=== PATIENT | female | born 1965 | race Hispanic/Latino ===

== ENCOUNTER 2025-03-18 22:04 | Inpatient (IN) | payer SELFPAY ==
[~2025-03-18] VITALS: Ht 167.6 cm; Wt 57.4 kg
[2025-03-18 22:34] LABS: BASOPHILS # (AUTO) 0.06 K/uL (0.00-0.20); BASOPHILS % (AUTO) 0.5 % (0.0-5.0); EOSINOPHILS # (AUTO) 0.08 K/uL (0.00-0.70); EOSINOPHILS % (AUTO) 0.7 % (0.0-8.0); HEMATOCRIT 29.8 % (36-48); IMMATURE GRANULOCYTE ABSOLUTE 0.11 K/uL (0-1); LYMPHOCYTES # (AUTO) 1.6 K/uL (1.0-4.8); LYMPHOCYTES % (AUTO) 14.1 % (21.0-51.0); MEAN CORPUSCULAR HEMOGLOBIN 29.5 pg (27.0-33.0); MEAN CORPUSCULAR HGB CONC 30.5 g/dL (32.0-36.0); MEAN CORPUSCULAR VOLUME 96.8 fL (79-99); MONOCYTES # (AUTO) 1.1 K/uL (0.1-1.0); MONOCYTES % (AUTO) 9.6 % (3.0-13.0); NEUTROPHILS # (AUTO) 8.5 K/uL (1.8-7.7); NEUTROPHILS % (AUTO) 74.1 % (40.0-77.0); PLATELET COUNT (AUTO) 199 K/uL (130-400); RED BLOOD CELL COUNT(AUTO) 3.08 MIL/uL (4.00-5.50); WHITE BLOOD COUNT (AUTO) 11.5 K/uL (4.8-10.8)
[2025-03-18 22:51] LABS: CREATININE 4.5 mg/dL (0.5-1.0); POTASSIUM 4.4 mmol/L (3.5-5.1)
--- NOTE | 2025-03-18 22:52 | ERN ---
General Chief Complaint: Weakness Stated Complaint: WEAKNESS X 2 DAYS Time Seen by MD: 22:08 Source: patient History of Present Illness Initial Comments Patient is a 59-year-old female who was discharged from [facility] two days ago after being there for severe fluid overload. She comes here because of buttocks and bilateral lower extremity pain right greater than left and fevers. She came to this hospital because she she felt that [facility] would not admit her as they had just discharged her. It is hard to get a full history from her. She does answer questions, but the details are fuzzy. She is lying in the bed and there are obvious necrotic skin sores up and down the medial portion of her right leg. There is also a necrotic skin sore on a left BKA stump. Both legs have there wound surrounded with erythema and warmth. Her buttocks does not appear to have any wounds. Timing/Duration: unsure Allergies: Coded Allergies: No Known Drug Allergies (Unverified Allergy, Unknown, 03/18/25) Past Medical History Past Medical History: CHF, Diabetes-Type II, Hypertension, Renal Failure Medical History Other: I am assuming peripheral vascular disease from her diabetes. Past Surgical History: Other Surgical History Other: L AKA Constitutional: (+) fever EENTM: (-) eye pain, (-) blurred vision, (-) tearing, (-) double vision, (-) ear pain, (-) ear discharge, (-) nose pain, (-) nose congestion, (-) throat pain, (-) Throat swelling, (-) mouth pain, (-) tooth pain, (-) mouth swelling, (-) other documentation Respiratory: (-) cough, (-) orthopnea, (-) short of breath, (-) stridor, (-) wheezing, (-) other documentation Cardiovascular: (-) chest pain, (-) edema, (-) palpitations, (-) syncope, (-) dyspnea on exertion, (-) other documentation Gastrointestinal/Abdominal: (-) nausea, (-) vomiting, (-) diarrhea, (-) abdominal pain, (-) abdominal distention, (-) constipation, (-) rectal bleeding, (-) dark stool/melena, (-) other documentation Musculoskeletal: (-) Neck pain, (-) back pain, (-) Flank Pain, (-) joint pain, (-) joint swelling, (-) muscle pain, (-) muscle stiffness, (-) gout, (-) other documentation Neuro: (-) altered mental status, (-) headache, (-) syncope, (-) paralysis, (-) numbness, (-) seizure, (-) pre-existing deficit, (-) tremors, (-) weakness, (-) dizziness, (-) slurred speech, (-) vertigo, (-) other documentation Physical Exam General Appearance: (+) mild distress Orientation: (+) alert Eye: bilateral eye normal inspection, bilateral eye PERRL, bilateral eye EOMI Ear, Nose, Throat: (+) hearing grossly normal Neck: (+) normal inspection, (+) full range of motion Respiratory: (+) chest non-tender, (+) lungs clear, (+) well ventilated Heart: (+) regular Vascular Comment Left BKA with a an infected stump. Right lower extremity with necrotic sores medially as if they are remnants of a saphenous vein harvest. There was erythema and warmth and both of these areas. Rectal Comment No obvious signs of bedsores open wounds or infection. Results Laboratory and Microbiology Lab and Micro Result Laboratory Tests Test 03/18/25 22:26 White Blood Count 11.5 K/uL (4.8-10.8) H Red Blood Count 3.08 MIL/uL (4.00-5.50) L Hemoglobin 9.1 g/dL (12.0-16.0) L Hematocrit 29.8 % (36-48) L Mean Corpuscular Volume 96.8 fL (79-99) Mean Corpuscular Hemoglobin 29.5 pg (27.0-33.0) Mean Corpuscular Hemoglobin Concent 30.5 g/dL (32.0-36.0) L Red Cell Distribution Width 19.0 % (11.0-15.5) H Platelet Count 199 K/uL (130-400) Mean Platelet Volume 11.1 fL (7.5-10.5) H Immature Granulocyte % (Auto) 1.0 % (0-1) Neutrophils (%) (Auto) 74.1 % (40.0-77.0) Lymphocytes (%) (Auto) 14.1 % (21.0-51.0) L Monocytes (%) (Auto) 9.6 % (3.0-13.0) Eosinophils (%) (Auto) 0.7 % (0.0-8.0) Basophils (%) (Auto) 0.5 % (0.0-5.0) Neutrophils # (Auto) 8.5 K/uL (1.8-7.7) H Lymphocytes # (Auto) 1.6 K/uL (1.0-4.8) Monocytes # (Auto) 1.1 K/uL (0.1-1.0) H Eosinophils # (Auto) 0.08 K/uL (0.00-0.70) Basophils # (Auto) 0.06 K/uL (0.00-0.20) Absolute Immature Granulocyte (auto 0.11 K/uL (0-1) Nucleated Red Blood Cells 0.0 % (0.0-0.19) Red Blood Cell Morphology ANISO 1+ Sodium Level 137 mmol/L (136-145) Potassium Level 4.4 mmol/L (3.5-5.1) Chloride Level 99 mmol/L (101-111) L Carbon Dioxide Level 30 mmol/L (21-32) Blood Urea Nitrogen 32 mg/dL (7-18) H Creatinine 4.5 mg/dL (0.5-1.0) H Glomerular Filtration Rate Calc 11 mL/min (>90) Random Glucose 99 mg/dL (70-105) Lactic Acid Level 1.2 mmol/L (0.8-2.5) Total Calcium 7.4 mg/dL (8.5-10.1) L Total Creatine Kinase 110 U/L (21-232) Troponin I High Sensitivity 400 ng/L (4-50) *H B-Type Natriuretic Peptide > 5000 pg/mL (0-100) H MDM Because of her fever and tachycardia the patient was made a sepsis alert on arrival to the ED. sepsis orders have already been written it is now 10:52 p.m. I will attempt to get medical records from [facility] but I think the patient will need to be admitted for IV antibiotics. The workup for the patient revealed a troponin of 500 and a BNP of greater than 4000. I called the environmental quality analyst's they would like her admitted with a an echo in the morning as well as arterial and venous Dopplers on her lower extremities. I have called the hospitalist and they are willing to take her onto their service. In the meantime I will start antibiotics. ED Course Orders Procedure Category Date Status Time Iv Insertion CPOE 03/18/25 Transmitted 22:11 Pulse Ox(Continuous) RT 03/18/25 Transmitted 22:11 Vital Signs Per CPOE 03/18/25 Transmitted Routine 22:11 12 Lead Ekg Tracing- EKG 03/18/25 Logged Technical 22:11 Cbc With Differential LAB 03/18/25 Complete 22:11 Blood Cult MARCOS 03/18/25 In Process 22:11 Creatine Kinase, Total LAB 03/18/25 Complete 22:11 Troponin I High LAB 03/18/25 Complete Sensitivity 22:11 Lactic Acid LAB 03/18/25 Complete 22:11 Basic Metabolic Panel LAB 03/18/25 Complete 22:11 Chest 1vw RAD 03/18/25 Logged 22:52 B-Type Natriuretic LAB 03/18/25 Complete Peptide 23:21 Echo 2-D Complete ECHO 03/18/25 Logged 23:54 Us Venous Doppler US 03/18/25 Logged Bilateral 23:54 Us Arterial Bilat Low US 03/18/25 Logged Ext Dupl 23:54 Zosyn 3.375gm+Ns 50ml PHA 03/19/25 Logged (Zosyn 3.375gm+Ns 00:50 Current Medications Medications (Trade) Dose Ordered Sig/Lori Route PRN Reason Start Time Stop Time Status Last Admin Dose Admin Piperacillin Sod/ Tazobactam Sod (Zosyn 3.375gm+NS 50ml) 3.375 gm ONCE STAT IV 03/19/25 00:50 03/19/25 00:51 UNV Vital Signs Date Time Temp Pulse Resp B/P (MAP) Pulse Ox O2 Delivery O2 Flow Rate FiO2 03/19/25 00:50 93 18 134/71 98 Room Air* 0 21 03/18/25 23:35 99.1 93 18 106/69 98 Room Air* 0 21 03/18/25 22:08 101.5 92 17 130/71 98 Room Air 0 DX & DISP Disposition: Inpatient Departure Impression: Primary Impression: Wounds, multiple Additional Impression: CHF (congestive heart failure) Condition: Stable Referrals: SELF,REFERRAL (PCP) LUIS SANDERS MD Mar 18, 2025 22:52
--- NOTE | 2025-03-18 23:51 | NUR ---
PATIENT CLEANED OF STOOL INCONTINENCE.
[2025-03-19] VITALS (18 sets, daily range): BP systolic 95–147; BP diastolic 52–79; PULSE 68–91; RESP 14–20; TEMP 97.4–98.8
--- NOTE | 2025-03-19 01:00 | NUR ---
REPOSITIONED PATIENT TO RIGHT SIDE LYING, PLACED ON SOFT WEDGES TO TURN PATIENT.
--- NOTE | 2025-03-19 01:35 | NUR ---
ULTRASOUND AT BEDSIDE NOT ABLE TO DO VENOUS STUDY DUE TO PATIENT'S PAIN, WILL GIVE PAIN MEDS PER MD AND [facility] WILL ATTEMPT AGAIN.
[2025-03-19] MEDS: FENTanyl CITRate PF 50 MCG/1 ML 2ML VIAL IVP ONE (01:48)
[2025-03-19] MEDS: ZOSYN 3.375GM +NS 50ML IV STA (01:48)
--- NOTE | 2025-03-19 02:01 | NUR ---
PATIENT NOT ABLE TO TOLERATE VENOUS STUDY. [facility]
--- NOTE | 2025-03-19 04:01 | NUR ---
FAMILY TO BRING HOME MEDICATIONS.
--- NOTE | 2025-03-19 04:51 | HP ---
[facility] H[facility]ORY AND PHYSICAL Date of Service: Mar 19, 2025 Time of Service: 04:28 PCP: Self-referral HISTORY OF PRESENT ILLNESS: This is a 59-year-old female not a good historian, with past medical history of CHF, hypertension , severe peripheral vascular disease, diabetes and end-stage renal disease on hemodialysis Saturday who was brought by EMS to the ED for complaints of pain to buttocks and bilateral lower extremities and fever.Patient reports she was recently admitted at [facility] for fluid overload and was discharged 2 days ago .Patient states she has a left AKA that was done 2 weeks ago and looks infected and she also has a multiple wound ulcers with some necrosis to right lower extremity and both extremities are swollen,with erythema and warm to to touch .Patient has no records here for any admissions. Upon arrival to the ED vital signs temperature 101.5, heart rate 92 blood pressure 130/71 saturation 98% on room air Seen and examined patient int he ED awake,alert and coherent and irritable .Patient denies chest pain,palpitation,cough and shortness of breath. Latest vital signs temperature 99.1, heart rate 95, blood pressure 114/60 saturation 98% on room air. Labs: WBC 11 , hemoglobin 9, hematocrit 29 platelet count 199. Chloride 99, BUN 32, creatinine 4.5 GFR 11, calcium 7.4 troponin 400 BNP 5000 chest x-ray, arterial ultrasound and venous Doppler result are still pending at this time. ECG unavailable at this time. While in the ER patient received Zosyn IV and fentanyl 50 mcg IV. We will admit patient for further medical management. REVIEW OF SYSTEMS CONSTITUTIONAL: Denies fevers, chills, or night sweats. No unintentional weight loss reported. NEUROLOGICAL: Denies headache, amaurosis fugax, motor weakness, sensory deficit, vertigo/spinning sensation, gait abnormalities, or tremors. ENT: No hearing loss, otalgia, otorrhea, rhinitis, rhinorrhea, hoarseness, or sore throat. CARDIOVASCULAR: Denies any exertional angina, dyspnea on exertion, orthopnea, paroxysmal nocturnal dyspnea, palpitations, life-threatening arrhythmias, claudication. PULMONARY: Denies any shortness of breath, cough, phlegm/sputum, hemoptysis, pleuritic chest pain. SLEEP: Denies morning headaches, daytime somnolence or napping. Denies difficulty falling asleep, staying asleep, waking from sleep. Denies knowledge of snoring. GASTROINTESTINAL: Denies any type of dysphagia to either liquids or solids. Denies nausea, vomiting, pyrosis, early satiety, abdominal pain, diarrhea, constipation, or changes in stool consistency or caliber. Denies coffee-ground emesis, hematemesis, hematochezia, or melanotic stools. GENITOURINARY: Denies frequency, urgency, nocturia, hematuria or incontinence (Storage/Irritative symptoms.) Low urinary stream, straining to void, urinary intermittency or hesitancy, splitting of the voiding stream, terminal dribbling. ENDOCRINOLOGIC: Denies polyuria, polydipsia, polyphagia or heat/cold intolerances. HEMATOLOGIC: Denies thrombophilia/previous clots, or coagulopathy/bleeding disorders. ONCOLOGIC: Denies personal history of malignancy. DERMATOLOGIC: Denies rashes or pruritus. PSYCHIATRIC: Denies any suicidal or homicidal ideation. Denies hallucinations. PAST MEDICAL HISTORY: [ CHF, hypertension , severe peripheral vascular disease, diabetes and end- stage renal disease on hemodialysis ] PAST SURGICAL HISTORY: [ Left AKA ] PAST SOCIAL HISTORY: [ Patient lives with son. Patient admits to smoking four cigarettes per day. Patient denies alcohol and recreational drug use] FAMILY HISTORY: [Noncontributory ] Coded Allergies: No Known Drug Allergies (Unverified Allergy, Unknown, 03/18/25) PHYSICAL EXAM GENERAL APPEARANCE: The patient is awake, alert, and oriented, in no acute cardiopulmonary distress. NEUROLOGICAL: Cranial nerves II-XII grossly intact. Motor is 5/5 in bilateral upper and lower extremities proximal to distal. No sensory deficits. HEENT: Face is symmetric. Pupils are equal and reactive. Extraocular movements are intact. NECK: Supple. No JVD. No thyromegaly. No submental, submandibular, pre- /postauricular, occipital or supraclavicular lymphadenopathy. CHEST: Normal chest expansion. No Telemetry. LUNGS: Absence of any rales, rhonchi or any wheezing. CARDIOVASCULAR: Regular. S1 and S2 normal. No appreciable rubs, murmurs or gallops. ABDOMEN: Soft, nontender, and nondistended. There is no rebound, voluntary guarding, or rigidity. : Deferred. No Ta. EXTREMITIES: Left AKA with emily intact. Swollen right lower extremity SKIN: Infected left stump and right lower extremity multiple necrotic wound ulcers Vital Sign (Last 24 Hours) 03/18/25 03/19/25 23:35 03:30 Temp 99.1 Pulse 95 Resp 18 B/P (MAP) 114/60 Pulse Ox 98 O2 Delivery Room Air* O2 Flow Rate 0 FiO2 21 LABS: Laboratory: Test 03/18/25 22:26 Range/Units White Blood Count 11.5 H 4.8-10.8 K/uL Red Blood Count 3.08 L 4.00-5.50 MIL/uL Hemoglobin 9.1 L 12.0-16.0 g/dL Hematocrit 29.8 L 36-48 % Mean Corpuscular Volume 96.8 79-99 fL Mean Corpuscular Hemoglobin 29.5 27.0-33.0 pg Mean Corpuscular Hemoglobin Concent 30.5 L 32.0-36.0 g/dL Red Cell Distribution Width 19.0 H 11.0-15.5 % Platelet Count 199 130-400 K/uL Mean Platelet Volume 11.1 H 7.5-10.5 fL Immature Granulocyte % (Auto) 1.0 0-1 % Neutrophils (%) (Auto) 74.1 40.0-77.0 % Lymphocytes (%) (Auto) 14.1 L 21.0-51.0 % Monocytes (%) (Auto) 9.6 3.0-13.0 % Eosinophils (%) (Auto) 0.7 0.0-8.0 % Basophils (%) (Auto) 0.5 0.0-5.0 % Neutrophils # (Auto) 8.5 H 1.8-7.7 K/uL Lymphocytes # (Auto) 1.6 1.0-4.8 K/uL Monocytes # (Auto) 1.1 H 0.1-1.0 K/uL Eosinophils # (Auto) 0.08 0.00-0.70 K/uL Basophils # (Auto) 0.06 0.00-0.20 K/uL Absolute Immature Granulocyte (auto 0.11 0-1 K/uL Nucleated Red Blood Cells 0.0 0.0-0.19 % Red Blood Cell Morphology ANISO 1+ Sodium Level 137 136-145 mmol/L Potassium Level 4.4 3.5-5.1 mmol/L Chloride Level 99 L 101-111 mmol/L Carbon Dioxide Level 30 21-32 mmol/L Blood Urea Nitrogen 32 H 7-18 mg/dL Creatinine 4.5 H 0.5-1.0 mg/dL Glomerular Filtration Rate Calc 11 >90 mL/min Random Glucose 99 70-105 mg/dL Lactic Acid Level 1.2 0.8-2.5 mmol/L Total Calcium 7.4 L 8.5-10.1 mg/dL Total Creatine Kinase 110 21-232 U/L Troponin I High Sensitivity 400 *H 4-50 ng/L B-Type Natriuretic Peptide > 5000 H 0-100 pg/mL Current Medications Medications (Trade) Dose Ordered Sig/Lori Route PRN Reason Start Time Stop Time Status Last Admin Dose Admin Piperacillin Sod/ Tazobactam Sod (Zosyn 3.375gm+NS 50ml) 3.375 gm ONCE STAT IV 03/19/25 00:50 03/19/25 00:56 DC 03/19/25 01:48 3.375 GM DIAGNOSTICS / RADIOLOGY: [ ] ASSESSMENT: Severe peripheral vascular disease POA Infected left AKA stump POA Multiple necrotic wound ulcers to right lower extremity POA Elevated troponin due to demand ischemia POA Acute CHF POA End-stage renal disease on hemodialysis POA Diabetes POA Acute anemia due to CKD POA Hypertension POA Sepsis without septic shock source infected wounds to bilateral lower extremities POA PLAN: We will admit patient in medical telemetry We will start on renal dialysis diet We will start on heparin 5000 mg subQ b.i.d. for DVT prophylaxis We will start on cefepime and Flagyl for broad-spectrum coverage We will start famotidine 20 mg q.48h for GI prophylaxis We will start on insulin sliding scale AC & HS with hypoglycemia protocol We will add prn medication for fever,pain,cough , nausea and vomiting We will reconcile home meds once medlist available We will seek wound care eval consult We will seek Nephrology consultation We will seek Cardiology consultation We will trend troponin q.6 x3 We will follow-up venous Doppler, arterial Doppler and chest x-ray result We will request labs in am Further orders to follow depending on above results Case discussed with attending physician and came up with above treatment and plan of care. ADVANCED CARE PLANNING 1. Which of the following were discussed? Hospice Care - No Therapeutic options - Yes Advance Directives - No Other discussions - 2. Discussed with who? Patient 3. Voluntary nature of this service was explained to the patient? Yes 4. Amount of time spent - __25 5. Reviewed by Physician? (if this service was performed by NPP) Yes Patient seen and examined by me. Agree with note by BEATER WORKER HELPER SEE ADDITIONAL ORDERS PER CHART DISCUSSED WITH NURSING STAFF MADISON TYSON PILLOWCASE CUTTER Mar 19, 2025 04:51
[2025-03-19] MEDS ORDERED: GLUCAGON 1MG KIT 1 MG ML IM PRN (05:00)
[2025-03-19] MEDS ORDERED: DEXTROSE 50%-WATER 50 ML DISP.SYRIN IV PRN (05:00)
[2025-03-19] MEDS ORDERED: acetaMINOPHEN 325 MG TAB PO PRN (05:00)
[2025-03-19] MEDS: ceFEPime HCL 1 GM VIAL IVPB SCH (05:30)
[2025-03-19] MEDS: FAMOTIDINE 20MG TAB PO SCH (05:31)
[2025-03-19] MEDS: HEParin 5,000 UNIT VIAL SQ SCH ×2 (05:31→20:21)
[2025-03-19] MEDS: metRONIDazole 500MG/100ML BAG 100 ML IVPB SCH (06:15)
[2025-03-19] MEDS: INSULIN humuLIN R 100 UNIT/ML 3ML SQ SCH (07:30)
[2025-03-19] MEDS ORDERED: ISOS60TA77 PO (07:37)
[2025-03-19] MEDS ORDERED: FURO40TA5 PO (07:37)
[2025-03-19] MEDS ORDERED: DOXY100C5 PO (07:37)
[2025-03-19] MEDS ORDERED: SODI650T PO (07:37)
[2025-03-19] MEDS ORDERED: CALC0.253 PO (07:37)
[2025-03-19] MEDS ORDERED: AMOX1TAB15 PO (07:37)
[2025-03-19] MEDS ORDERED: HYDR50TA36 PO (07:37)
[2025-03-19] MEDS ORDERED: METO-409 PO (07:37)
[2025-03-19] MEDS ORDERED: ASPI-1443 PO (07:37)
--- NOTE | 2025-03-19 07:53 | EKG ---
[facility] Test Date: 2025-03-18 Test Time: 22:38:54 Pat Name: KATY GOMEZ Department: EDHIP Room: ED 09 Gender: F Telecom Specialist: [id number] : 1965 Requested By: LUIS SANDERS Order Number: [id number] Reading MD: Sepideh Baker Measurements Intervals Norton Rate: 105 P: 8 OK: 133 QRS: 64 QRSD: 125 T: 94 QT: 369 QTc: 485 Interpretive Statements Sinus tachycardia Atrial premature complex Right bundle branch block Nonspecific T abnormalities, lateral leads No previous ECG available for comparison Electronically Signed On 03-19-2025 09:34:12 CDT by Sepideh Baker Please click the below link to view image of tracing.
[2025-03-19 07:59] LABS: BASOPHILS # (AUTO) 0.06 K/uL (0.00-0.20); BASOPHILS % (AUTO) 0.6 % (0.0-5.0); EOSINOPHILS # (AUTO) 0.23 K/uL (0.00-0.70); EOSINOPHILS % (AUTO) 2.1 % (0.0-8.0); HEMATOCRIT 25.2 % (36-48); IMMATURE GRANULOCYTE ABSOLUTE 0.09 K/uL (0-1); LYMPHOCYTES # (AUTO) 1.9 K/uL (1.0-4.8); LYMPHOCYTES % (AUTO) 17.7 % (21.0-51.0); MEAN CORPUSCULAR HEMOGLOBIN 30.2 pg (27.0-33.0); MEAN CORPUSCULAR VOLUME 97.7 fL (79-99); MONOCYTES # (AUTO) 1.4 K/uL (0.1-1.0); MONOCYTES % (AUTO) 12.7 % (3.0-13.0); NEUTROPHILS # (AUTO) 7.2 K/uL (1.8-7.7); NEUTROPHILS % (AUTO) 66.1 % (40.0-77.0); PLATELET COUNT (AUTO) 181 K/uL (130-400); RED BLOOD CELL COUNT(AUTO) 2.58 MIL/uL (4.00-5.50); RED CELL DISTRIBUTION WIDTH 18.8 % (11.0-15.5); WHITE BLOOD COUNT (AUTO) 10.8 K/uL (4.8-10.8)
--- NOTE | 2025-03-19 08:00 | NUR ---
CALLED [facility] TO INFORM OF CONSULT: DR JAJA ESPINOZA. PLACED ON LIST AND ADDED TO CENSUS.
[2025-03-19 08:21] LABS: ALBUMIN 1.3 g/dL (3.5-5.0); BILIRUBIN,TOTAL 0.5 mg/dL (0.2-1.0); CREATININE 4.9 mg/dL (0.5-1.0); MAGNESIUM 1.9 mg/dL (1.80-2.40); POTASSIUM 4.5 mmol/L (3.5-5.1); TOTAL PROTEIN, SERUM 5.4 g/dL (6.0-8.3)
[2025-03-19 09:10] LABS: ERYTHROCYTE SEDIMENTATION RATE 67 MM/HR (0-30)
--- NOTE | 2025-03-19 09:26 | HMCIMG ---
PORTABLE CHEST RADIOGRAPH INDICATION: sepsis COMPARISON: None FINDINGS: Right-sided hemodialysis catheter in place. patient monitor leads overlie the field of view. Heart size is normal. The pulmonary vascularity and luana appear normal. No evidence for consolidation. Right costophrenic angle is nominally blunted more than the left. No pneumothorax detected. IMPRESSION: Trace right pleural fluid and suspect trace left pleural fluid.
--- NOTE | 2025-03-19 09:33 | HMCIMG ---
ULTRASOUND ARTERIAL DUPLEX LOWER EXTREMITY, BILATERAL INDICATION: Leg weakness TECHNIQUE: Routine grayscale, color Doppler, and power Doppler ultrasound of the bilateral lower extremity arteries were obtained. COMPARISON: None FINDINGS: Velocities in cm/sec. RIGHT: SUPERVISOR ESTIMATOR AND DRAFTER: 10, monophasic SFA: Prox no flow, Mid no flow, Distal 30, monophasic Popliteal: Not well demonstrated Anterior Tibial: Not well demonstrated Posterior Tibial: Not well demonstrated Dorsalis Pedis: No flow Collateral flow demonstrated at 30 cm/sec. LEFT: SUPERVISOR ESTIMATOR AND DRAFTER: 119, triphasic SFA: Prox 57, Mid 46, Distal 57, biphasic Left [id number]-[id number]-[id number] amputation changes. IMPRESSION: No flow demonstrated within the proximal to mid right superficial femoral artery as well as right dorsalis pedis artery and diminished monophasic flow within the right common femoral and distal right superficial femoral arteries. Remainder of the right lower extremity arterial system was not well-demonstrated secondary to patient's contracted state and overlying bandaging. Parameters as reported.
[2025-03-19] MEDS: EPOETIN ALFA-EPBX (NON-ESRD) 10,000 UNIT/ML VIAL SQ ONE (10:00)
--- NOTE | 2025-03-19 10:00 | CONS ---
REFERRING PHYSICIAN: Jakob Eisenberg MD REASON FOR CONSULTATION: ESRD and nonhealing wounds. HISTORY OF PRESENT ILLNESS: A 59-year-old female with history of diabetes mellitus, hypertension. She has history of vascular disease. The patient was recently admitted to an outside hospital with nonhealing wounds. The patient did undergo lower extremity amputation. The patient also initiated on dialysis during that admission. The patient was discharged to home. She did not follow up at the dialysis unit. She did not follow up with the surgeon. She presents back to the hospital with increasing shortness of breath and nonhealing wounds. She is being seen in consultation for all of the above. PAST MEDICAL HISTORY: Diabetes mellitus, hypertension, vascular disease, ESRD. PAST SURGICAL HISTORY: Left AKA, PermCath, AV access. SOCIAL HISTORY: She lives with family. There is no tobacco use. FAMILY HISTORY: There is renal disease in the family. ALLERGIES: There are no allergies. MEDICATIONS: All noted. REVIEW OF SYSTEMS: GENERAL: She is feeling weak and tired. HEENT: No change in vision. No change in hearing. CARDIOVASCULAR: There is no current chest pain or palpitations. PULMONARY: She has chronic shortness of breath. GASTROINTESTINAL: The patient is tolerating diet. MUSCULOSKELETAL: As described above. NEUROLOGIC: No history of seizures or focal deficit. PSYCHIATRIC: No history of hallucinations or psychosis. ENDOCRINE: Diabetes mellitus. No history of thyroid disease. PHYSICAL EXAMINATION: VITAL SIGNS: Blood pressure 134/78. Pulse 80s. Afebrile. GENERAL: Chronically ill female, much older than appearing. HEENT: Atraumatic. Pupils are equal, roving to light. Oropharynx is without extended. Nares clear. NECK: There is no JVP. There is no thyromegaly. No mass. CARDIOVASCULAR: Regular. There is no S3, S4 gallop. LUNGS: Coarse with equal thoracic movement. ABDOMEN: Soft, nondistended and nontender. EXTREMITIES: The wounds are all noted. NEUROLOGICAL: She is awake. She is alert. She is oriented. SKIN: No rashes or nodules. BACK: There is no CVA tenderness. No back deformities. LABORATORY DATA: Hemoglobin 7.8. Hematocrit 25. White cell count is 10,000. Sodium 137. Potassium 4.5. BUN 36. Creatinine 5. Troponin is 356. IMPRESSION: * Nonhealing wounds. * ESRD, noncompliance. * Volume overload. * Diabetes mellitus. * Hypertension. * Anemia. PLAN: The patient has been started on broad-spectrum IV antibiotics. The patient is to be evaluated by Cardiology in regard to the vascular disease, also by Wound Care, and we will continue to follow the patient closely. She will continue dialysis while in the hospital and will continue to follow the patient closely. The patient can be started on Epogen for the anemia. We will follow closely. TID: [id number] RECEIPT: [id number]
[2025-03-19] MEDS: HYDROcodone/APAP 5/325 1 TAB TABLET PO PRN (10:14)
--- NOTE | 2025-03-19 10:57 | NUR ---
[facility] Consult: Patient assessed by wound healing team. See wound assessment. Assessment and recommendations provided to primary nurse. Education provided. Addendum: 03/19/25 at 1356 by AV FORRESTER RN RN/ Amended: Links added.
[2025-03-19] MEDS ORDERED: LIDOCAINE HCL-MPF 1% 2ML VIAL IJ SCH (11:00)
[2025-03-19] MEDS: 0.9%NACL 1000ML 1,000 ML IV SCH ×2 (11:00→20:29)
[2025-03-19] MEDS ORDERED: 0.9% NACL 250ML 250 ML IV SCH (11:00)
[2025-03-19] MEDS: ALBUMIN (HUMAN) 25% 50 ML IV.SOLN. IV ONE (11:00)
[2025-03-19] MEDS: LIDOCAINE/PRILOCAINE CREAM 5GM TUBE TP SCH (11:00)
[2025-03-19] MEDS ORDERED: HEParin 5,000 UNIT VIAL IRRIG SCH (11:00)
[2025-03-19 11:14] LABS: HEMATOCRIT 26.3 % (36-48)
--- NOTE | 2025-03-19 11:21 | EKG ---
[facility] Test Date: 2025-03-19 Test Time: 11:19:05 Pat Name: KATY GOMEZ Department: EDHIP Room: 424 Gender: F Thread Pulling Machine Attendant: [id number] : 1965 Requested By: RADHA BELTRÁN Order Number: [id number] Reading MD: Sepideh Baker Measurements Intervals Sharon Rate: 87 P: 42 ND: 139 QRS: 67 QRSD: 132 T: 36 QT: 419 QTc: 507 Interpretive Statements Sinus rhythm Right bundle branch block Compared to ECG 03/18/2025 22:38:54 Sinus tachycardia no longer present Atrial premature complex(es) no longer present T-wave abnormality no longer present Electronically Signed On 03-20-2025 17:03:14 CDT by Sepideh Baker Please click the below link to view image of tracing.
--- NOTE | 2025-03-19 11:28 | NUR ---
DCP: new SNF Pt reports to currently living in a duplex [address] [place] [address] with a cousin and son Earle Briggs [phone]. Pt claims that she moved here a bit ago from [place]. Pt did not report having a provider or home health services. Pt reports recently starting dialysis however goes into the hospital to get it done. PT was recently discharged from [facility] [place] an [place]. Pt reports having a wheelchair and walker at home. Pt did not report a PCP or pharmacy however claims that she has Medicare (contacted registration and they were going to verify). Pt reported that they have not had running water in the home for 4 months and they use buckets of water to bathe. SW provided pt with community resources. Pt reports wanting to go to a SNF at discharge. JOEY attempted to get in contact with son however # was disconnected. JOEY reached out to breann on file Filipe Lemons [phone] however he states that he lives in [place], [place] and has been disconnected from sister. Bro did not have son's number. JOEY contacted [employer], there is a current open case. crop farm workers Lenore Buenrostro [phone]. Informed of claims made today in ER. As per manager case she was going to follow up with her here. Addendum: 03/19/25 at 1136 by MARTINA CARLSON SS Amended: Links added.
[2025-03-19 11:29] LABS: % IRON SATURATION 21.5 % (22-44)
[2025-03-19 11:41] LABS: ALBUMIN 1.3 g/dL (3.5-5.0)
[2025-03-19 12:04] LABS: HIV 1&2 ANTIBODY Non-Reactive (Negative)
[2025-03-19 12:05] LABS: HIV-1 p24 Antigen Non-Reactive (Negative)
--- NOTE | 2025-03-19 12:30 | NUR ---
DR JAJA ESPINOZA ARRIVED AND SAW PATIENT. STATED PATIENT HAS BEEN FOLLOWED BY MEDICAL RECORDS CODER DR SANTACRUZ SINCE MOVING TO [place] AND SHOULD CONTINUE TO FOLLOW HER EXISTING MD FOR CONTINUITY OF CARE. CONSULT PLACED, ORDER READ BACK AND ENTERED.
--- NOTE | 2025-03-19 12:45 | NUR ---
[facility]ULT [facility]IVE SERVICES JESENIA ARVIZU CAME IN TO EVALUATE PATIENT. STATED THAT SHE WILL FOLLOW UP WITH BEHAVIORAL HEALTH ASSISTANT WITHIN THE NEXT DAY OR TWO.
[2025-03-19] MEDS: SODIUM BICARBONATE 650 MG TAB PO SCH (13:57)
--- NOTE | 2025-03-19 14:41 | HMCSR ---
APPROVED REPORT EXAM: Two-dimensional and M-mode echocardiogram with Doppler and color Doppler. INDICATION ICD: elevated troponin and BNP 2D Dimensions RVDd3.8 cmLVEF(%)42.1 (>50%)LVED Vol(simp.)132.0 mL IVSd1.0 (0.7-1.1cm)FS(%)21 %LVES Vol(simp.)85.0 mL LVDd5.0 (3.8-5.6cm)LA (2D)3.5 (1.6-4.0cm)LVEF(%, simp.)36 % PWd1.4 (0.7-1.1cm)Ao Root(2D)2.5 (2.0-3.7cm)LA ESV INDEX (BP)36.42 mL/m2 LVDs3.9 (2.5-4.0cm)LVOT diam1.9 (1.8-2.4cm) IVC diam1.5 cm Deformation Strain Apical 4-6.8 % Apical 2-8.6 % Apical 3-4.9 % Global Strain-6.8 % M-Mode Dimensions EPSS1.0 cm LA (MM)3.2 (1.6-4.0cm) Ao Root(MM)2.7 (2.0-3.7cm) Aortic Valve AoV Vmax2.4 m/Bahman Peak GR22.6 mmHgLVOT Vmax1.1 m/s AoV VTI0.4 mAo Mean GR11.6 mmHgLVOT VTI0.19 m ANAYELI (VMAX)1.26 cm2AVA (VTI) 1.3 cm2 Mitral Valve MV E Vmax99.3 cm/sDECEL Uhis512 msMV Peak GR9 mmHg MV A Dcpg151.5 cm/sP 1/2 T50 msMV Mean GR5 mmHg E/A ratio0.7MVA (PHT)4.4 cm2MVA (VTI)1.64 cm2 TDI E/E' Pcnqns24.6E/E' Xwwuopn91.4 Medial E' Peak V3.14 cm/sLateral E' Peak V6.45 cm/s Pulmonary Valve PV Vmax1.1 m/sPV Mean GR2.3 mmHg PV Peak GR4.5 mmHg Tricuspid Valve TR Vmax1.5 m/sRVSP9.6 mmHg TR Peak GR9.6 mmHg Left Ventricle Left ventricular cavity size is normal. There is normal left ventricular wall thickness. LVEF is 35-4 0%. Stage I diastolic dysfunction. Right Ventricle The right ventricle is normal size. The right ventricular systolic function is normal. Atria The left atrium is mildly dilated. The right atrium size is normal. Aortic Valve Cannot exclude vegetation versus calcification. The aortic valve is displays decreased opening. No ao rtic regurgitation is present. There is mild valvular aortic stenosis. Highest mean aortic valve grad ient is 13mmHg, highest Pk gradient 26mmHg. PV 2.56 m/sec. ANAYELI 1.4 cm2. Mitral Valve The posterior mitral valve leaflet is moderately calcified. Mitral regurgitation is moderate. There i s no mitral valve stenosis. Tricuspid Valve The tricuspid valve is normal in structure and function. There is trace tricuspid valve regurgitation noted. Pulmonic Valve The pulmonary valve is normal in structure and function. There is no pulmonic valvular regurgitation. Great Vessels The aortic root is normal in size. The IVC is normal in size and collapses <50% with inspiration. Pericardium No pericardial effusion. Conclusion Left ventricular cavity size is normal. LVEF is 35-40%. Stage I diastolic dysfunction. The right ventricle is normal size. The right ventricular systolic function is normal. The left atrium is mildly dilated. The right atrium size is normal. Cannot exclude vegetation versus calcification. The aortic valve is displays decreased opening. There is mild valvular aortic stenosis. Highest mean aortic valve gradient is 13mmHg, highest Pk gradient 26mmHg. PV 2.56 m/sec. ANAYELI 1.4 cm2. The posterior mitral valve leaflet is moderately calcified. Mitral regurgitation is moderate. No pericardial effusion.
--- NOTE | 2025-03-19 15:36 | NUR ---
I SPOKE WITH DR MALAVE AND NOTIFIED HIM OF CONSULT AND ELEVATED TROPONINS. STATED THAT HE WOULD LOOK UP PATIENT'S INFORMATION AND NOTIFY ME IF ANY CHANGES TO PLAN OF CARE. CONTINUE CURRENT PLAN OF CARE AT THIS TIME.
[2025-03-19] MEDS ORDERED: HEParin 5,000 UNIT VIAL SQ SCH (16:30)
--- NOTE | 2025-03-19 19:57 | CONS ---
CONSULT NOTE: CARDIOLOGY Reason for consult: Elevated troponin HPI/story at presentation: This is a pleasant 59-year-old female with past medical history as below that was recently admitted to [facility] with prolonged hospitalization for lower extremity peripheral vascular disease. No active cardiac complaints at this time, does complain of pain in the lower extremities. Subjective: 03/19/2025 No extremity pain Past medical history: See below Allergies, Meds See chart Review of systems Review of Systems Constitutional: Negative for chills and fever. HENT: Negative for ear discharge and ear pain. Eyes: Negative for photophobia and discharge. Respiratory: Negative for cough, sputum production and stridor. Cardiovascular: Negative for chest pain and palpitations. Gastrointestinal: Negative for diarrhea and vomiting. Genitourinary: Negative for frequency. Musculoskeletal: Negative for myalgias. Skin: Negative for rash. Neurological: Negative for focal weakness and seizures. Endo/Heme/Allergies: Negative for polydipsia. Psychiatric/Behavioral: Negative for hallucinations. Vitals see chart PHYSICAL EXAMINATION GENERAL: The patient is alert and oriented*3 HEENT: Nonicteric sclerae, non traumatic HEART: Regular rate and rhythm with no murmurs LUNGS: Clear to auscultation bilaterally ABDOMEN: No acute issues, non tender GENITAL, RECTAL: deferred SKIN: No rash NEUROLOGIC: NFND EXTREMITIES: S/p BKA ASSESSMENT PERIPHERAL VASCULAR DISEASE With previous history of bypass to the right Please s/p amputation of the left Previous history of iliac stenting CORONARY DISEASE Status post previous intervention x 2 CHRONIC KIDNEY DISEASE Stage V ELEVATED TROPONIN Greater than 400 at presentation LOWER EXTREMITY EDEMA With possible venous insufficiency/lymphedema HISTORY OF ATRIAL FIBRILLATION On Eliquis previously HISTORY OF CVA 2023 DYSLIPIDEMIA, HYPERTENSION, DIABETES, TOBACCO USE, SLEEP APNEA CORE MEASURES Not applicable OTHER MEDICAL PROBLEMS Reviewed PLAN 03/19/2025 patient with underlying peripheral vascular disease, recent amputation, currently presenting with elevated troponins, likely type II elevation. No change in EF compared to previous. No active chest pain as well. At this time, best managed conservatively. There is also concern for issues with compliance in the long run and risk of any invasive procedure if necessary. Seen and examined 03/19/2025 at around 8 PM. ATTESTATION I was involved substantially in the care of this patient Number and complexity of problems addressed: 1 acute illness with systemic features Amount and or complexity of data Review of prior external note(s) from each unique source: 2+ Ordering of each unique test : 0 Review of the result(s) of each unique test: 2+ Assessment requiring an independent historian(s): No Independent interpretation of test performed by another MD/QHCP/appropriate source (not separately reported) : No Discussion of management or test interpretation with external MD/QHCP/appropriate source (not separately reported) : No Risk status (cardiac, billing related): Moderate ED DÍAZ MD Mar 19, 2025 19:57
[2025-03-19] MEDS: hydrALAZine 25MG TABLET PO SCH (20:21)
[2025-03-20] VITALS (7 sets, daily range): BP systolic 89–133; BP diastolic 45–60; PULSE 68–89; RESP 18–19; TEMP 97.2–98.7; O2SAT 99
[2025-03-20 04:56] LABS: BASOPHILS # (AUTO) 0.04 K/uL (0.00-0.20); BASOPHILS % (AUTO) 0.5 % (0.0-5.0); EOSINOPHILS # (AUTO) 0.42 K/uL (0.00-0.70); EOSINOPHILS % (AUTO) 5.5 % (0.0-8.0); HEMATOCRIT 28.1 % (36-48); IMMATURE GRANULOCYTE ABSOLUTE 0.05 K/uL (0-1); LYMPHOCYTES # (AUTO) 1.1 K/uL (1.0-4.8); LYMPHOCYTES % (AUTO) 14.5 % (21.0-51.0); MEAN CORPUSCULAR HGB CONC 30.6 g/dL (32.0-36.0); MEAN CORPUSCULAR VOLUME 97.9 fL (79-99); MONOCYTES # (AUTO) 0.9 K/uL (0.1-1.0); MONOCYTES % (AUTO) 12.2 % (3.0-13.0); NEUTROPHILS # (AUTO) 5.1 K/uL (1.8-7.7); NEUTROPHILS % (AUTO) 66.6 % (40.0-77.0); PLATELET COUNT (AUTO) 177 K/uL (130-400); RED BLOOD CELL COUNT(AUTO) 2.87 MIL/uL (4.00-5.50); RED CELL DISTRIBUTION WIDTH 18.4 % (11.0-15.5); WHITE BLOOD COUNT (AUTO) 7.6 K/uL (4.8-10.8)
[2025-03-20 05:02] LABS: RETICULOCYTE % (AUTO) 4.43 % (0.42-2.23)
[2025-03-20 05:39] LABS: % IRON SATURATION 25.2 % (22-44)
[2025-03-20 06:03] LABS: BILIRUBIN,TOTAL 0.4 mg/dL (0.2-1.0)
[2025-03-20 06:09] LABS: ALBUMIN 1.3 g/dL (3.5-5.0); CREATININE 3.4 mg/dL (0.5-1.0); MAGNESIUM 1.7 mg/dL (1.80-2.40); PHOSPHORUS 3.3 mg/dL (2.5-4.9); POTASSIUM 3.8 mmol/L (3.5-5.1); TOTAL PROTEIN, SERUM 5.6 g/dL (6.0-8.3)
[2025-03-20] MEDS: ASPIRIN 81 MG EC TAB PO SCH (09:03)
[2025-03-20] MEDS: metOPROLol sucCINATE 50 MG TAB.SR.24H PO SCH (09:04)
[2025-03-20] MEDS: CALCITRIOL 0.25 MCG CAP PO SCH (09:04)
[2025-03-20] MEDS: ISOSORBIDE MONO 60MG SR TAB PO SCH (09:04)
[2025-03-20] MEDS: furoSEMIDE 40 MG TABLET PO SCH (09:05)
[2025-03-20] MEDS: HYDROcodone/APAP 5/325 1 TAB TABLET PO PRN (09:10)
--- NOTE | 2025-03-20 11:11 | HMCIMG ---
CT LOW EXT W/O CONTRAST HISTORY: Stump infection COMPARISON: None TECHNIQUE: Multiple sequential axial images of the left femur were obtained including post processing sagittal and coronal reconstruction images. Patient was not given contrast through intravenous route. FINDINGS: Patient is status post left above-knee amputation. Extensive vascular calcifications are seen. Soft tissue swelling is seen. No definite erosive changes are noted of the bony structure. Evaluation for osteomyelitis is limited with CT. There is no acute displaced fracture or dislocation. Subcutaneous fat stranding is seen. IMPRESSION: 1. Findings as described above. CT was performed with one or more following dose reduction techniques: automated exposure control, adjustment of the mA and kv according to patient's size, or use of a iterative reconstruction technique.
--- NOTE | 2025-03-20 11:54 | NUR ---
PT eval held pending doppler and CT. PT to follow
--- NOTE | 2025-03-20 12:03 | NUR ---
DCP: SNF SW met with patient regarding discharge plans. Patient stated that she would like to a long term. KAMILLA signed by patient for referral to [facility] and [facility]. KAMILLA placed in chart. Patient informed SW that she has no insurance but does receive $1100 in SSI monthly. SW explained that long term would assist with applying for benefits. Patient in agreement. Patient's nurse, Desmond, and CM, Vanesa, notified.
--- NOTE | 2025-03-20 13:47 | PN ---
NEPHROLOGY PROGRESS NOTE Date/Time Patient Seen: Mar 20, 2025 SUBJECTIVE: This is a 59-year-old female with history of diabetes mellitus, hypertension, end-stage renal disease on hemodialysis Saturday, peripheral vascular disease with left AKA, anemia. She has history of vascular disease. The patient was recently admitted to an outside hospital with nonhealing wounds. The patient did undergo lower extremity amputation. The patient also initiated on dialysis during that admission. The patient was discharged to home. She did not follow up at the dialysis unit. She did not follow up with the surgeon. She presents back to the hospital with increasing shortness of breath and nonhealing wounds. She tolerated dialysis without difficulty yesterday Cardiology workup is ongoing She was seen in the medical floor, in no acute distress REVIEW OF SYSTEMS: GENERAL: Positive for generalized weakness NEUROLOGIC: Negative for any blurry vision, blind spots, double vision, facial asymmetry, dysphagia, dysarthria, hemiparesis, hemisensory deficits, vertigo, ataxia. HEENT: Negative for any head trauma, neck trauma, neck stiffness, photophobia, phonophobia, sinusitis, rhinitis. CARDIAC: Negative for any chest pain, dyspnea on exertion, paroxysmal nocturnal dyspnea, peripheral edema. PULMONARY: Negative for any shortness of breath, wheezing, COPD, or TB exposure. GASTROINTESTINAL: Negative for any abdominal pain, nausea, vomiting, bright red blood per rectum, melena. GENITOURINARY: Negative for any dysuria, hematuria, incontinence. INTEGUMENTARY: Negative for any rashes, cuts, insect bites. RHEUMATOLOGIC: Negative for any joint pains, photosensitive rashes, history of vasculitis or kidney problems. HEMATOLOGIC: Negative for any abnormal bruising, frequent infections or bleeding. Vital Signs (last 8hr) Date Time Temp Pulse Resp B/P (MAP) Pulse Ox O2 Delivery O2 Flow Rate FiO2 03/20/25 12:00 98.8 81 19 109/56 100 Room Air 03/20/25 08:16 98.2 89 19 133/60 99 Room Air PHYSICAL EXAM: GENERAL: Alert and oriented x 3. No acute distress. Well-nourished. EYES: EOMI. Anicteric. HENT: Moist mucous membranes. No scleral icterus. No cervical lymphadenopathy. LUNGS: Clear to auscultation bilaterally. No accessory muscle use. CARDIOVASCULAR: Regular rate and rhythm. No murmur. No JVD. ABDOMEN: Soft, non-tender and non-distended. No palpable masses. EXTREMITIES: No edema. Non-tender. SKIN: No rashes or lesions. Warm. NEUROLOGIC: No focal neurological deficits. CN II-XII grossly intact, but not individually tested. PSYCHIATRIC: Cooperative. Appropriate mood and affect. Current Medications Medications (Trade) Dose Ordered Sig/Lori Route PRN Reason Start Time Stop Time Status Last Admin Dose Admin Acetaminophen (TYLenol 325MG TAB) 650 mg Q4H PRN PO MILD PAIN (1-3) 03/19/25 05:00 04/18/25 04:59 Acetaminophen (TYLenol 325MG TAB) 650 mg Q6H PRN PO TEMPERATURE GREATER THAN 101.5 03/19/25 05:00 04/18/25 04:59 Acetaminophen/ Hydrocodone Bitart (NORco 5/325MG) 1 tab Q4H PRN PO MODERATE PAIN (4-6) 03/19/25 05:00 03/24/25 04:59 03/20/25 09:10 1 TAB Acetaminophen/ Hydrocodone Bitart (NORco 5/325MG) 2 tab Q4H PRN PO SEVERE PAIN (7-10) 03/19/25 05:00 03/24/25 04:59 03/20/25 04:28 2 TAB Aspirin (Aspirin 81mg Ec Tab) 81 mg DAILY PO 03/20/25 09:00 04/19/25 08:59 03/20/25 09:03 81 MG Calcitriol (Rocaltrol 0.25mcg Cap) 0.25 mcg DAILY PO 03/20/25 09:00 04/19/25 08:59 03/20/25 09:04 0.25 MCG Cefepime HCl (MAXipime 1 GM vial) 1 gm Q24H IVPB 03/19/25 05:00 03/29/25 04:59 03/20/25 04:28 1 GM Dextrose (D50w) 50 ml AD PRN IV HYPOGLYCEMIA PROTOCOL 03/19/25 05:00 04/18/25 04:59 Famotidine (Pepcid 20mg Tab) 10 mg Q48H PO 03/19/25 05:00 04/18/25 04:59 03/19/25 05:31 10 MG Furosemide (LASix 40MG TAB) 40 mg DAILY PO 03/20/25 09:00 04/19/25 08:59 03/20/25 09:05 40 MG Glucagon (Glucagon 1mg Kit) 1 mg AD PRN IM HYPOGLYCEMIA PROTOCOL 03/19/25 05:00 04/18/25 04:59 Heparin Sodium (Porcine) (HEParin 5,000 UNIT VIAL) 5,000 unit AD IRRIG 03/19/25 11:00 04/18/25 10:59 Heparin Sodium (Porcine) (HEParin 5,000 UNIT VIAL) 5,000 unit Q12H SQ 03/19/25 05:30 03/19/25 17:09 DC 03/19/25 05:31 5,000 UNIT Heparin Sodium (Porcine) (HEParin 5,000 UNIT VIAL) 5,000 unit Q12H SQ 03/19/25 20:00 04/18/25 19:59 03/20/25 09:06 5,000 UNIT Heparin Sodium (Porcine) (HEParin 5,000 UNIT VIAL) 10,000 unit AD SQ 03/19/25 16:30 04/18/25 16:29 Hydralazine HCl ([id number] TAB) 100 mg BID PO 03/19/25 21:00 04/18/25 20:59 03/20/25 09:04 100 MG Insulin Human Regular (humuLIN R 100 UNIT/ML 3ML) INSULIN SLIDING SCAL... ACHS SQ 03/19/25 07:30 04/18/25 07:29 Isosorbide Mononitrate (Imdur 60mg Sr) 60 mg DAILY PO 03/20/25 09:00 04/19/25 08:59 03/20/25 09:04 60 MG Leptospermum [facility] ([facility]) 1 appl DAILY TP 03/20/25 16:00 04/19/25 15:59 Lidocaine HCl (Lidocaine HCl Mpf 1% 2ml Vial) 0.5 ml AD IJ 03/19/25 11:00 03/19/25 11:01 DC Lidocaine/ Prilocaine (Emla) 1 appl ONCE TP 03/19/25 11:00 03/19/25 11:01 DC Metoprolol Succinate (TopROL XL) 100 mg DAILY PO 03/20/25 09:00 04/19/25 08:59 03/20/25 09:04 100 MG Metronidazole/ Sodium Chloride 100 ml @ 100 mls/hr Q8H6 IVPB 03/19/25 06:00 03/29/25 05:59 03/20/25 05:57 100 MLS/HR Ondansetron HCl (zoFRAN 4MG INJ) 4 mg Q6H PRN IV NAUSEA/VOMITING 03/19/25 05:00 04/18/25 04:59 Piperacillin Sod/ Tazobactam Sod (Zosyn 3.375gm+NS 50ml) 3.375 gm ONCE STAT IV 03/19/25 00:50 03/19/25 00:56 DC 03/19/25 01:48 3.375 GM Sodium Bicarbonate (Sodium Bicarbonate) 650 mg TID PO 03/19/25 14:00 04/18/25 13:59 03/20/25 09:03 650 MG Sodium Chloride 250 ml @ 0 mls/hr AD IV 03/19/25 11:00 04/18/25 10:59 Sodium Chloride 1,000 ml @ 0 mls/hr ONCE IV 03/19/25 11:00 04/18/25 10:59 Sodium Chloride 1,000 ml @ 0 mls/hr ONCE IV 03/19/25 16:30 03/19/25 20:30 DC 03/19/25 20:29 333 MLS/HR LABORATORY: [ ] Hematology Labs: Test 03/20/25 04:36 03/19/25 07:29 03/18/25 22:26 Range/Units White Blood Count 7.6 # 4.8-10.8 K/uL Red Blood Count 2.87 L 4.00-5.50 MIL/uL Hemoglobin 8.6 L 12.0-16.0 g/dL Hematocrit 28.1 L 36-48 % Mean Corpuscular Volume 97.9 79-99 fL Mean Corpuscular Hemoglobin 30.0 27.0-33.0 pg Mean Corpuscular Hemoglobin Concent 30.6 L 32.0-36.0 g/dL Red Cell Distribution Width 18.4 H 11.0-15.5 % Platelet Count 177 130-400 K/uL Mean Platelet Volume 11.3 H 7.5-10.5 fL Immature Granulocyte % (Auto) 0.7 0-1 % Neutrophils (%) (Auto) 66.6 40.0-77.0 % Lymphocytes (%) (Auto) 14.5 L 21.0-51.0 % Monocytes (%) (Auto) 12.2 3.0-13.0 % Eosinophils (%) (Auto) 5.5 0.0-8.0 % Basophils (%) (Auto) 0.5 0.0-5.0 % Neutrophils # (Auto) 5.1 1.8-7.7 K/uL Lymphocytes # (Auto) 1.1 1.0-4.8 K/uL Monocytes # (Auto) 0.9 0.1-1.0 K/uL Eosinophils # (Auto) 0.42 0.00-0.70 K/uL Basophils # (Auto) 0.04 0.00-0.20 K/uL Absolute Immature Granulocyte (auto 0.05 0-1 K/uL Nucleated Red Blood Cells 0.0 0.0-0.19 % Reticulocyte Count (auto) 4.90241 H 0.42-2.23 % Immature Reticulocyte Fraction 23.30 H 0.18-0.48 % Erythrocyte Sedimentation Rate 67 H 0-30 MM/HR Red Blood Cell Morphology ANISO 1+ Chemistry Labs: Test 03/20/25 11:07 03/20/25 04:36 03/19/25 10:56 03/19/25 07:29 Range/Units Whole Blood Glucose 121 H 70-110 MG/DL Sodium Level 137 136-145 mmol/L Potassium Level 3.8 3.5-5.1 mmol/L Chloride Level 100 L 101-111 mmol/L Carbon Dioxide Level 32 21-32 mmol/L Blood Urea Nitrogen 23 H 7-18 mg/dL Creatinine 3.4 H 0.5-1.0 mg/dL Glomerular Filtration Rate Calc 15 >90 mL/min Random Glucose 99 70-105 mg/dL Total Calcium 7.2 L 8.5-10.1 mg/dL Phosphorus Level 3.3 2.5-4.9 mg/dL Magnesium Level 1.70 L 1.80-2.40 mg/dL Iron Level 22 L 50-170 mcg/dL Total Iron Binding Capacity 87 L 250-450 mcg/dL Percent Iron Saturation 25.2 22-44 % Ferritin 986 H 15-150 ng/mL Total Bilirubin 0.4 0.2-1.0 mg/dL Aspartate Amino Transf (AST/SGOT) 21 10-37 U/L Alanine Aminotransferase (ALT/SGPT) 10 L 12-78 U/L Alkaline Phosphatase 108 50-136 U/L Total Protein 5.6 L 6.0-8.3 g/dL Albumin 1.3 L 3.5-5.0 g/dL Vitamin B12 Level 1209 H 193-986 pg/mL Folic Acid (LAB) 3.50 2-20 ng/mL Hemoglobin A1c 5.0 4.0-6.0 % Estimated Average Glucose (eAG) 97 70-126 mg/dL Troponin I High Sensitivity 361 *H 4-50 ng/L Triglycerides Level 135 30-200 mg/dL Cholesterol Level 85 <200 mg/dL LDL Cholesterol 30 0-99 mg/dL HDL Cholesterol 42 35-85 mg/dL C-Reactive Protein, Quantitative 88.00 H 0.5-3.0 mg/L Procalcitonin 0.61 H 0.05-0.5 ng/mL Test 03/18/25 22:26 Range/Units Lactic Acid Level 1.2 0.8-2.5 mmol/L Total Creatine Kinase 110 21-232 U/L B-Type Natriuretic Peptide > 5000 H 0-100 pg/mL DIAGNOSTICS / RADIOLOGY: REASON: stump infection left aka ORDERING PHYSICIAN: JANES COTE MD PROCEDURE: LOW EXT WO - CT LOW EXT W/O CONTRAST CT LOW EXT W/O CONTRAST HISTORY: Stump infection COMPARISON: None TECHNIQUE: Multiple sequential axial images of the left femur were obtained including post processing sagittal and coronal reconstruction images. Patient was not given contrast through intravenous route. FINDINGS: Patient is status post left above-knee amputation. Extensive vascular calcifications are seen. Soft tissue swelling is seen. No definite erosive changes are noted of the bony structure. Evaluation for osteomyelitis is limited with CT. There is no acute displaced fracture or dislocation. Subcutaneous fat stranding is seen. IMPRESSION: 1. Findings as described above. CT was performed with one or more following dose reduction techniques: automated exposure control, adjustment of the mA and kv according to patient's size, or use of a iterative reconstruction technique. DICTATED BY: YENI BECK MD DATE: 03/20/256 REASON: elevated Troponin and BNP ORDERING PHYSICIAN: LUIS SANDERS MD PROCEDURE: ECHO CMP - ECHO 2-D COMPLETE APPROVED REPORT EXAM: Two-dimensional and M-mode echocardiogram with Doppler and color Doppler. INDICATION ICD: elevated troponin and BNP 2D Dimensions RVDd 3.8 cm LVEF(%) 42.1 (>50%) LVED Vol(simp.) 132.0 mL IVSd 1.0 (0.7-1.1cm) FS(%) 21 % LVES Vol(simp.) 85.0 mL LVDd 5.0 (3.8-5.6cm) LA (2D) 3.5 (1.6-4.0cm) LVEF(%, simp.) 36 % PWd 1.4 (0.7-1.1cm) Ao Root(2D) 2.5 (2.0-3.7cm) LA ESV INDEX (BP) 36.42 mL/m2 LVDs 3.9 (2.5-4.0cm) LVOT diam 1.9 (1.8-2.4cm) IVC diam 1.5 cm Deformation Strain Apical 4 -6.8 % Apical 2 -8.6 % Apical 3 -4.9 % Global Strain -6.8 % M-Mode Dimensions EPSS 1.0 cm LA (MM) 3.2 (1.6-4.0cm) Ao Root(MM) 2.7 (2.0-3.7cm) Aortic Valve AoV Vmax 2.4 m/s Ao Peak GR 22.6 mmHg LVOT Vmax 1.1 m/s AoV VTI 0.4 m Ao Mean GR 11.6 mmHg LVOT VTI 0.19 m ANAYELI (VMAX) 1.26 cm2 ANAYELI (VTI) 1.3 cm2 Mitral Valve MV E Vmax 99.3 cm/s DECEL Time 193 ms MV Peak GR 9 mmHg MV A Vmax 136.5 cm/s P 1/2 T 50 ms MV Mean GR 5 mmHg E/A ratio 0.7 MVA (PHT) 4.4 cm2 MVA (VTI) 1.64 cm2 TDI E/E' Medial 31.6 E/E' Lateral 15.4 Medial E' Peak V 3.14 cm/s Lateral E' Peak V 6.45 cm/s Pulmonary Valve PV Vmax 1.1 m/s PV Mean GR 2.3 mmHg PV Peak GR 4.5 mmHg Tricuspid Valve TR Vmax 1.5 m/s RVSP 9.6 mmHg TR Peak GR 9.6 mmHg Left Ventricle Left ventricular cavity size is normal. There is normal left ventricular wall thickness. LVEF is 35-40%. Stage I diastolic dysfunction. Right Ventricle The right ventricle is normal size. The right ventricular systolic function is normal. Atria The left atrium is mildly dilated. The right atrium size is normal. Aortic Valve Cannot exclude vegetation versus calcification. The aortic valve is displays decreased opening. No aortic regurgitation is present. There is mild valvular aortic stenosis. Highest mean aortic valve gradient is 13mmHg, highest Pk gradient 26mmHg. PV 2.56 m/sec. ANAYELI 1.4 cm2. Mitral Valve The posterior mitral valve leaflet is moderately calcified. Mitral regurgitation is moderate. There is no mitral valve stenosis. Tricuspid Valve The tricuspid valve is normal in structure and function. There is trace tricuspid valve regurgitation noted. Pulmonic Valve The pulmonary valve is normal in structure and function. There is no pulmonic valvular regurgitation. Great Vessels The aortic root is normal in size. The IVC is normal in size and collapses <50% with inspiration. Pericardium No pericardial effusion. Conclusion Left ventricular cavity size is normal. LVEF is 35-40%. Stage I diastolic dysfunction. The right ventricle is normal size. The right ventricular systolic function is normal. The left atrium is mildly dilated. The right atrium size is normal. Cannot exclude vegetation versus calcification. The aortic valve is displays decreased opening. There is mild valvular aortic stenosis. Highest mean aortic valve gradient is 13mmHg, highest Pk gradient 26mmHg. PV 2.56 m/sec. ANAYELI 1.4 cm2. The posterior mitral valve leaflet is moderately calcified. Mitral regurgitation is moderate. No pericardial effusion. DICTATED BY: JODI ESPINOZA MD DATE: 03/19/25 0751 REASON: necrotic wounds B/L LE ORDERING PHYSICIAN: LUIS SANDERS MD PROCEDURE: ART B LE - US ARTERIAL BILAT LOW EXT DUPL ULTRASOUND ARTERIAL DUPLEX LOWER EXTREMITY, BILATERAL INDICATION: Leg weakness TECHNIQUE: Routine grayscale, color Doppler, and power Doppler ultrasound of the bilateral lower extremity arteries were obtained. COMPARISON: None FINDINGS: Velocities in cm/sec. RIGHT: PRINT COLOR OPERATOR: 10, monophasic SFA: Prox no flow, Mid no flow, Distal 30, monophasic Popliteal: Not well demonstrated Anterior Tibial: Not well demonstrated Posterior Tibial: Not well demonstrated Dorsalis Pedis: No flow Collateral flow demonstrated at 30 cm/sec. LEFT: PRINT COLOR OPERATOR: 119, triphasic SFA: Prox 57, Mid 46, Distal 57, biphasic Left [id number] amputation changes. IMPRESSION: No flow demonstrated within the proximal to mid right superficial femoral artery as well as right dorsalis pedis artery and diminished monophasic flow within the right common femoral and distal right superficial femoral arteries. Remainder of the right lower extremity arterial system was not well-demonstrated secondary to patient's contracted state and overlying bandaging. Parameters as reported. DICTATED BY: GHADA BENJAMIN MD DATE: 03/19/25928 REASON: sepsis ORDERING PHYSICIAN: LUIS SANDERS MD PROCEDURE: CXR1VW - CHEST 1VW PORTABLE CHEST RADIOGRAPH INDICATION: sepsis COMPARISON: None FINDINGS: Right-sided hemodialysis catheter in place. shelter monitor leads overlie the field of view. Heart size is normal. The pulmonary vascularity and luana appear normal. No evidence for consolidation. Right costophrenic angle is nominally blunted more than the left. No pneumothorax detected. IMPRESSION: Trace right pleural fluid and suspect trace left pleural fluid. DICTATED BY: GHADA BENJAMIN MD DATE: 03/19/25921 ASSESSMENT: Fluid overload Anemia End-stage renal disease Severe peripheral vascular disease Infected left AKA stump Multiple necrotic wound ulcers to right lower extremity Elevated troponin due to demand ischemia Acute CHF Diabetes mellitus type II Hypertension Sepsis without septic shock source infected wounds to bilateral lower extremities PLAN: Labs and Diagnostics/ Radiology personally reviewed and interpreted by myself and supervising physician We have reviewed dialysis and external records in detail Continue dialysis schedule Saturday Cardiology workup is ongoing 1.5 L fluid restriction Continue to monitor H&H Epogen on dialysis days, as needed Continue with frequent monitoring of renal function, anemia, and electrolytes Order CBC, BMP, and electrolytes in the morning May use Dilaudid 0.5 mg IV every 6 hours as needed for severe pain Monitor blood pressure adjust medication doses as needed Maintain normotensive state Strict intake, output, and daily weight should be monitored Please renally adjust medications. Avoid nephrotoxics and nonsteroidal drugs. We will continue to monitor the patient closely We have discussed with the other team physicians in detail about the care plan ATTESTATION BY PHYSICIAN I have seen and examined the patient. I reviewed the documentation, medical decision making, and treatment plan as noted by the mid-level provider above. I agree with the findings and plan of care. KEISHA BLACKMAN MD, ELIZABETH FNP Mar 20, 2025 13:47
[2025-03-20 14:36] LABS: HEPATITIS B SURFACE ANTIBODY Negative (Reactive); HEPATITIS B SURFACE ANTIGEN Non-Reactive (Nonreactive)
--- NOTE | 2025-03-20 14:36 | NUR ---
CM NOTE: POC CM REACHED OUT TO DR Markel BETLRÁN REGARDING WHICH OUTPATIENT DIALYSIS MD WANTS CM TO SET UP VIA SECURE TEXT, PENDING MD RESPONSE. CM TO CONTINUE TO FOLLOW UP.
--- NOTE | 2025-03-20 14:37 | PN ---
[facility] PROGRESS NOTE Date of Service: Mar 20, 2025 Time of Service: 14:28 SUBJECTIVE: [ 59-year-old female not a good historian, with past medical history of CHF, hypertension , severe peripheral vascular disease, diabetes and end-stage renal disease on hemodialysis Saturday who was brought by EMS to the ED for complaints of pain to buttocks and bilateral lower extremities and fever.Patient reports she was recently admitted at [facility] for fluid overload and was discharged 2 days ago .Patient states she has a left AKA that was done 2 weeks ago and looks infected and she also has a multiple wound ulcers with some necrosis to right lower extremity and both extremities are swollen,with erythema and warm to to touch .Patient has no records here for any admissions. Upon arrival to the ED vital signs temperature 101.5, heart rate 92 blood pressure 130/71 saturation 98% on room air Seen and examined patient int he ED awake,alert and coherent and irritable.Patient denies chest pain,palpitation,cough and shortness of breath. Latest vital signs temperature 99.1, heart rate 95, blood pressure 114/60 saturation 98% on room air. Labs: WBC 11 , hemoglobin 9, hematocrit 29 platelet count 199. Chloride 99, BUN 32, creatinine 4.5 GFR 11, calcium 7.4 troponin 400 BNP 5000 chest x-ray, arterial ultrasound and venous Doppler result are still pending at this time. ECG unavailable at this time. While in the ER patient received Zosyn IV and fentanyl 50 mcg IV. We will admit patient for further medical management. 03/20/2025. Patient seen and examined denies any new complaints. 2D echo report discussed with the patient patient has low EF she is aware of that. Patient was seen by Cardiology Dr. Hodge no interventions planned. CT scan of the left below-knee amputation stump was done did reveal soft tissue edema no abscess noted. Pending ID consult. ] REVIEW OF SYSTEMS CONSTITUTIONAL: Denies fevers, chills, or night sweats. No unintentional weight loss reported. NEUROLOGICAL: Denies headache, amaurosis fugax, motor weakness, sensory deficit, vertigo/spinning sensation, gait abnormalities, or tremors. ENT: No hearing loss, otalgia, otorrhea, rhinitis, rhinorrhea, hoarseness, or sore throat. CARDIOVASCULAR: Denies any exertional angina, dyspnea on exertion, orthopnea, paroxysmal nocturnal dyspnea, palpitations, life-threatening arrhythmias, claudication. PULMONARY: Denies any shortness of breath, cough, phlegm/sputum, hemoptysis, pleuritic chest pain. SLEEP: Denies morning headaches, daytime somnolence or napping. Denies difficulty falling asleep, staying asleep, waking from sleep. Denies knowledge of snoring. GASTROINTESTINAL: Denies any type of dysphagia to either liquids or solids. Denies nausea, vomiting, pyrosis, early satiety, abdominal pain, diarrhea, constipation, or changes in stool consistency or caliber. Denies coffee-ground emesis, hematemesis, hematochezia, or melanotic stools. GENITOURINARY: Denies frequency, urgency, nocturia, hematuria or incontinence (Storage/Irritative symptoms.) Low urinary stream, straining to void, urinary intermittency or hesitancy, splitting of the voiding stream, terminal dribbling. ENDOCRINOLOGIC: Denies polyuria, polydipsia, polyphagia or heat/cold intolerances. HEMATOLOGIC: Denies thrombophilia/previous clots, or coagulopathy/bleeding disorders. ONCOLOGIC: Denies personal history of malignancy. DERMATOLOGIC: Denies rashes or pruritus. PSYCHIATRIC: Denies any suicidal or homicidal ideation. Denies hallucinations. PHYSICAL EXAM GENERAL APPEARANCE: The patient is awake, alert, and oriented, in no acute cardiopulmonary distress. NEUROLOGICAL: Cranial nerves II-XII grossly intact. Motor is 5/5 in bilateral upper and lower extremities proximal to distal. No sensory deficits. HEENT: Face is symmetric. Pupils are equal and reactive. Extraocular movements are intact. NECK: Supple. No JVD. No thyromegaly. No submental, submandibular, pre- /postauricular, occipital or supraclavicular lymphadenopathy. CHEST: Normal chest expansion. No Telemetry. LUNGS: Absence of any rales, rhonchi or any wheezing. CARDIOVASCULAR: Regular. S1 and S2 normal. No appreciable rubs, murmurs or gallops. ABDOMEN: Soft, nontender, and nondistended. There is no rebound, voluntary guarding, or rigidity. : Deferred. No Ta. EXTREMITIES: Left AKA with emily intact. Swollen right lower extremity SKIN: Infected left stump and right lower extremity multiple necrotic wound ulcers Vital Signs (last 8hr) Date Time Temp Pulse Resp B/P (MAP) Pulse Ox O2 Delivery O2 Flow Rate FiO2 03/20/25 12:00 98.8 81 19 109/56 100 Room Air 03/20/25 08:16 98.2 89 19 133/60 99 Room Air LABS: Laboratory: Test 03/20/25 11:07 03/20/25 04:36 03/19/25 10:56 03/19/25 07:29 Range/Units Whole Blood Glucose 121 H 70-110 MG/DL White Blood Count 7.6 # 4.8-10.8 K/uL Red Blood Count 2.87 L 4.00-5.50 MIL/uL Hemoglobin 8.6 L 12.0-16.0 g/dL Hematocrit 28.1 L 36-48 % Mean Corpuscular Volume 97.9 79-99 fL Mean Corpuscular Hemoglobin 30.0 27.0-33.0 pg Mean Corpuscular Hemoglobin Concent 30.6 L 32.0-36.0 g/dL Red Cell Distribution Width 18.4 H 11.0-15.5 % Platelet Count 177 130-400 K/uL Mean Platelet Volume 11.3 H 7.5-10.5 fL Immature Granulocyte % (Auto) 0.7 0-1 % Neutrophils (%) (Auto) 66.6 40.0-77.0 % Lymphocytes (%) (Auto) 14.5 L 21.0-51.0 % Monocytes (%) (Auto) 12.2 3.0-13.0 % Eosinophils (%) (Auto) 5.5 0.0-8.0 % Basophils (%) (Auto) 0.5 0.0-5.0 % Neutrophils # (Auto) 5.1 1.8-7.7 K/uL Lymphocytes # (Auto) 1.1 1.0-4.8 K/uL Monocytes # (Auto) 0.9 0.1-1.0 K/uL Eosinophils # (Auto) 0.42 0.00-0.70 K/uL Basophils # (Auto) 0.04 0.00-0.20 K/uL Absolute Immature Granulocyte (auto 0.05 0-1 K/uL Nucleated Red Blood Cells 0.0 0.0-0.19 % Reticulocyte Count (auto) 4.39888 H 0.42-2.23 % Immature Reticulocyte Fraction 23.30 H 0.18-0.48 % Sodium Level 137 136-145 mmol/L Potassium Level 3.8 3.5-5.1 mmol/L Chloride Level 100 L 101-111 mmol/L Carbon Dioxide Level 32 21-32 mmol/L Blood Urea Nitrogen 23 H 7-18 mg/dL Creatinine 3.4 H 0.5-1.0 mg/dL Glomerular Filtration Rate Calc 15 >90 mL/min Random Glucose 99 70-105 mg/dL Total Calcium 7.2 L 8.5-10.1 mg/dL Phosphorus Level 3.3 2.5-4.9 mg/dL Magnesium Level 1.70 L 1.80-2.40 mg/dL Iron Level 22 L 50-170 mcg/dL Total Iron Binding Capacity 87 L 250-450 mcg/dL Percent Iron Saturation 25.2 22-44 % Ferritin 986 H 15-150 ng/mL Total Bilirubin 0.4 0.2-1.0 mg/dL Aspartate Amino Transf (AST/SGOT) 21 10-37 U/L Alanine Aminotransferase (ALT/SGPT) 10 L 12-78 U/L Alkaline Phosphatase 108 50-136 U/L Total Protein 5.6 L 6.0-8.3 g/dL Albumin 1.3 L 3.5-5.0 g/dL Vitamin B12 Level 1209 H 193-986 pg/mL Folic Acid (LAB) 3.50 2-20 ng/mL Hemoglobin A1c 5.0 4.0-6.0 % Estimated Average Glucose (eAG) 97 70-126 mg/dL Troponin I High Sensitivity 361 *H 4-50 ng/L Triglycerides Level 135 30-200 mg/dL Cholesterol Level 85 <200 mg/dL LDL Cholesterol 30 0-99 mg/dL HDL Cholesterol 42 35-85 mg/dL HIV (1&2) Antibody Non-Reactive Negative HIV P24 Antigen, Qualitative Non-Reactive Negative Erythrocyte Sedimentation Rate 67 H 0-30 MM/HR C-Reactive Protein, Quantitative 88.00 H 0.5-3.0 mg/L Procalcitonin 0.61 H 0.05-0.5 ng/mL Test 03/18/25 22:26 Range/Units Red Blood Cell Morphology ANISO 1+ Lactic Acid Level 1.2 0.8-2.5 mmol/L Total Creatine Kinase 110 21-232 U/L B-Type Natriuretic Peptide > 5000 H 0-100 pg/mL Current Medications Medications (Trade) Dose Ordered Sig/Lori Route PRN Reason Start Time Stop Time Status Last Admin Dose Admin Acetaminophen (TYLenol 325MG TAB) 650 mg Q4H PRN PO MILD PAIN (1-3) 03/19/25 05:00 04/18/25 04:59 Acetaminophen (TYLenol 325MG TAB) 650 mg Q6H PRN PO TEMPERATURE GREATER THAN 101.5 03/19/25 05:00 04/18/25 04:59 Acetaminophen/ Hydrocodone Bitart (NORco 5/325MG) 1 tab Q4H PRN PO MODERATE PAIN (4-6) 03/19/25 05:00 03/24/25 04:59 03/20/25 09:10 1 TAB Acetaminophen/ Hydrocodone Bitart (NORco 5/325MG) 2 tab Q4H PRN PO SEVERE PAIN (7-10) 03/19/25 05:00 03/24/25 04:59 03/20/25 04:28 2 TAB Aspirin (Aspirin 81mg Ec Tab) 81 mg DAILY PO 03/20/25 09:00 04/19/25 08:59 03/20/25 09:03 81 MG Calcitriol (Rocaltrol 0.25mcg Cap) 0.25 mcg DAILY PO 03/20/25 09:00 04/19/25 08:59 03/20/25 09:04 0.25 MCG Cefepime HCl (MAXipime 1 GM vial) 1 gm Q24H IVPB 03/19/25 05:00 03/29/25 04:59 03/20/25 04:28 1 GM Dextrose (D50w) 50 ml AD PRN IV HYPOGLYCEMIA PROTOCOL 03/19/25 05:00 04/18/25 04:59 Famotidine (Pepcid 20mg Tab) 10 mg Q48H PO 03/19/25 05:00 04/18/25 04:59 03/19/25 05:31 10 MG Furosemide (LASix 40MG TAB) 40 mg DAILY PO 03/20/25 09:00 04/19/25 08:59 03/20/25 09:05 40 MG Glucagon (Glucagon 1mg Kit) 1 mg AD PRN IM HYPOGLYCEMIA PROTOCOL 03/19/25 05:00 04/18/25 04:59 Heparin Sodium (Porcine) (HEParin 5,000 UNIT VIAL) 5,000 unit AD IRRIG 03/19/25 11:00 04/18/25 10:59 Heparin Sodium (Porcine) (HEParin 5,000 UNIT VIAL) 5,000 unit Q12H SQ 03/19/25 05:30 03/19/25 17:09 DC 03/19/25 05:31 5,000 UNIT Heparin Sodium (Porcine) (HEParin 5,000 UNIT VIAL) 5,000 unit Q12H SQ 03/19/25 20:00 04/18/25 19:59 03/20/25 09:06 5,000 UNIT Heparin Sodium (Porcine) (HEParin 5,000 UNIT VIAL) 10,000 unit AD SQ 03/19/25 16:30 04/18/25 16:29 Hydralazine HCl ([id number] TAB) 100 mg BID PO 03/19/25 21:00 04/18/25 20:59 03/20/25 09:04 100 MG Insulin Human Regular (humuLIN R 100 UNIT/ML 3ML) INSULIN SLIDING SCAL... ACHS SQ 03/19/25 07:30 04/18/25 07:29 Isosorbide Mononitrate (Imdur 60mg Sr) 60 mg DAILY PO 03/20/25 09:00 04/19/25 08:59 03/20/25 09:04 60 MG Leptospermum Honey (Medihoney) 1 appl DAILY TP 03/20/25 16:00 04/19/25 15:59 Lidocaine HCl (Lidocaine HCl Mpf 1% 2ml Vial) 0.5 ml AD IJ 03/19/25 11:00 03/19/25 11:01 DC Lidocaine/ Prilocaine (Emla) 1 appl ONCE TP 03/19/25 11:00 03/19/25 11:01 DC Metoprolol Succinate (TopROL XL) 100 mg DAILY PO 03/20/25 09:00 04/19/25 08:59 03/20/25 09:04 100 MG Metronidazole/ Sodium Chloride 100 ml @ 100 mls/hr Q8H6 IVPB 03/19/25 06:00 03/29/25 05:59 03/20/25 05:57 100 MLS/HR Ondansetron HCl (zoFRAN 4MG INJ) 4 mg Q6H PRN IV NAUSEA/VOMITING 03/19/25 05:00 04/18/25 04:59 Piperacillin Sod/ Tazobactam Sod (Zosyn 3.375gm+NS 50ml) 3.375 gm ONCE STAT IV 03/19/25 00:50 03/19/25 00:56 DC 03/19/25 01:48 3.375 GM Sodium Bicarbonate (Sodium Bicarbonate) 650 mg TID PO 03/19/25 14:00 03/20/25 13:48 DC 03/20/25 09:03 650 MG Sodium Chloride 250 ml @ 0 mls/hr AD IV 03/19/25 11:00 04/18/25 10:59 Sodium Chloride 1,000 ml @ 0 mls/hr ONCE IV 03/19/25 11:00 04/18/25 10:59 Sodium Chloride 1,000 ml @ 0 mls/hr ONCE IV 03/19/25 16:30 03/19/25 20:30 DC 03/19/25 20:29 333 MLS/HR Vitamin B Complex/ Vit C/Folic Acid (Nephrovite Tablet) 1 cap DAILY PO 03/21/25 09:00 04/20/25 08:59 DIAGNOSTICS / RADIOLOGY: [ ] ASSESSMENT: Severe peripheral vascular disease POA Infected left AKA stump POA Multiple necrotic wound ulcers to right lower extremity POA Elevated troponin due to demand ischemia POA Acute on chronic systolic CHF POA End-stage renal disease on hemodialysis POA Diabetes POA Acute anemia due to CKD POA Hypertension POA Sepsis without septic shock source infected wounds to bilateral lower extremities POA PLAN: Follow ID consult. Continue with IV cefepime Flagyl and vancomycin. Adjust according to cultures. CT scan of the stomach did not show any drainable abscess. We will leave the decision to do MRI on ID. Appreciate cardiology consult. Continue on goal-directed medical therapy for sy stolic CHF. Patient not a candidate of Richar or Arb as blood pressure is on the lower side. We will leave that decision to Cardiology. Patient already on metoprolol succinate. We will need LifeVest on discharge if agreeable and if Cardiology agrees. Patient has iron-deficiency anemia on top of anemia due to chronic disease transferrin saturation in ESRD patients should be 30%. We will give IV iron during dialysis. GI DVT prophylaxis per protocol JANES COTE MD Mar 20, 2025 14:37
[2025-03-20] MEDS ORDERED: VANCOMYCIN PROTOCOL PER PHARMACY IV SCH (15:00)
--- NOTE | 2025-03-20 15:00 | NUR ---
CM NOTE: DIALYSIS OUTPATIENT CM REACHED OUT TO Wilton CARRERA NP FOR DR LEMUS/DR BLACKMAN REGARDING WHICH OUTPATIENT DIALYSIS MD WANTS CM TO SET UP VIA SECURE TEXT, PENDING MD RESPONSE. CM TO CONTINUE TO FOLLOW UP.
--- NOTE | 2025-03-20 15:49 | HMCIMG ---
US VENOUS DOPPLER BILATERAL INDICATION: Swelling. Rule out out dvt TECHNIQUE: US VENOUS DOPPLER BILATERAL Real-time venous Doppler ultrasound was performed using B mode, color flow and spectral analysis. FINDINGS: The visualized greater saphenous junction, common femoral, deep femoral, superficial femoral veins demonstrate normal compressibility and flow. No DVT is identified. Of both knee amputation changes seen in the left. The lesion of the right calf is degraded due to overlying bandage. IMPRESSION: No evidence of DVT in the visualized bilateral extremities.
[2025-03-20] MEDS: HONEY 1 APPL/ML TUBE TP SCH (16:49)
[2025-03-20] MEDS: VANCOMYCIN 1.5 GM/250 ML BAG 250 ML IV ONE (17:52)
--- NOTE | 2025-03-20 22:30 | NUR ---
PAGED SADDLE CUTTER CONSTRUCTION JOB COST ESTIMATOR BATHING PATIENT.CALLED TO ROOM. WHEN PLACED FLAT PATIENT STARTED TO WANT TO THROW UP, IMMEDIATELY PLACED HEAD OF BED BACK UP. PATIENT STATES SHE FEELS FINE. PATIENT BEGAN TO THROW UP GREEN LIQUID. ASKED PATIENT WHAT SHE ATE AND STATED THAT SHE DID NOT EAT ALL DAY BECAUSE SHE WAS NOT HUNGRY. PATIENT APPEARS TO BE A LITTLE LETHARGIC. VITALS OBTAINED. BP READINGS: 82/46 78/46 78/44 HR 65, O2 99 RA SAT PATIENT COMPLETELY UP AND GAVE SMALL SIP OF WATER. NO S/S OF ASPIRATION. NO COUGH NOTED AFTER SIP OF WATER. PAGED IRAIS SALGADO SADDLE CUTTER MASH FILTER PRESS OPERATOR. MADE AWARE OF PATIENT STATUS. ORDERS FOR 1X DOSE OF REGLAN 10MG IV, 1X DOSE ALBUMIN 25% 100ML, START MIDODRINE 10MG PO, TID, 1ST DOSE NOW. ORDERS RECEIVED AND CARRIED OUT
[2025-03-20] MEDS: metoCLOPRAmide 10 MG/2 ML VIAL IVP ONE (22:32)
[2025-03-20] MEDS: ALBUMIN HUMAN 25% 100 ML IV ONE (22:33)
[2025-03-20] MEDS: miDODRine HCL 5 MG TABLET PO SCH (23:04)
--- NOTE | 2025-03-20 23:50 | NUR ---
KATI MYERS UPDATED IRAIS MYERS ON PATIENT STATUS. LET HER KNOW THAT AFTER REGLAN AND ALBUMIN PATIENTS BP IS 94/46, HR 68. LET HER KNOW THAT ATTEMPTED TO GIVE WATER AGAIN BEFORE ADMINISTERING MIDODRINE TO MAKE SURE PATIENT WAS ABLE TO SWALLOW AND PATIENT BEGAN TO COUGH AND WAS NOT ABLE TO TOLERATE WATER. PER IRAIS MYERS WE NEED TO ADMINISTER MIDODRINE OR PATIENT IS GOING TO HAVE TO BE TRANSFERRED TO 2ND FLOOR. AGAIN LET HER KNOW THAT ATTEMPTED TO GIVE THIS PATIENT THE SMALLEST AMOUNT OF WATER AND IT SOUNDED IF SHE WAS CHOKING AND WAS NOT ABLE TO TOLERATE. Addendum: 03/21/25 at 0102 by AMBIKA GRANDA LVN LVN ORDERS FOR CXR, AND FADI RECEIVED
[2025-03-20] MEDS: ondanSETRON 4MG INJ IV PRN (23:59)
[2025-03-21] VITALS (13 sets, daily range): BP systolic 90–138; BP diastolic 46–64; PULSE 60–81; RESP 17–26; TEMP 97.6–98.6; O2SAT 90–99
--- NOTE | 2025-03-21 01:42 | NUR ---
ABD XRAY WAS ATTEMPTED, PT UNABLE TO TOLERATE LAYING FLAT, PT BEGAN TO COUGH W/ EMESIS EPISODE. PT WAS THEN POSITION UPRIGHT AND RN WAS NOTIFIED IMMEDIATELY. PT WAS LEFT IN UPRIGHT POSITION AND WITH RN ASSISTING PT.
[2025-03-21 05:54] LABS: MEAN CORPUSCULAR HEMOGLOBIN 29.8 pg (27.0-33.0); MEAN CORPUSCULAR HGB CONC 30.8 g/dL (32.0-36.0); MEAN CORPUSCULAR VOLUME 96.8 fL (79-99); PLATELET COUNT (AUTO) 228 K/uL (130-400); RED BLOOD CELL COUNT(AUTO) 2.48 MIL/uL (4.00-5.50); WHITE BLOOD COUNT (AUTO) 9.8 K/uL (4.8-10.8)
[2025-03-21 07:18] LABS: BAND NEUTROPHILS % (MANUAL) 1 % (0-2); EOSINOPHILS % (MANUAL) 1 % (1-6); LYMPHOCYTES % (MANUAL) 11 % (22-44); MAN.DIFF COMMENT-IMPRESSION MANUAL DIFFERENTIAL; MONOCYTES % (MANUAL) 9 % (2-9); PLATELET MORPHOLOGY COMMENT ADEQUATE; SEGMENTED NEUTROPHILS % 78 % (40-70); TOTAL CELLS COUNTED 100
--- NOTE | 2025-03-21 08:34 | HMCIMG ---
INDICATION: aspiration TECHNIQUE: CHEST 1VW COMPARISON: 03/19/2025 FINDINGS AND IMPRESSION: Mild bilateral airspace consolidation suggesting vascular congestion/edema versus pneumonia. Right permacath is in place. Trace of right effusion. Cardiac silhouette is within normal limits. Mild degenerative changes of the spine. The visualized upper abdomen appears unremarkable.
[2025-03-21] MEDS: NALoxone HCL 0.4 MG/1 ML ML IVP ONE (08:40)
[2025-03-21 08:43] LABS: ALBUMIN 1.8 g/dL (3.5-5.0); BILIRUBIN,TOTAL 0.6 mg/dL (0.2-1.0); CREATININE 4.1 mg/dL (0.5-1.0); PHOSPHORUS 5.1 mg/dL (2.5-4.9); TOTAL PROTEIN, SERUM 5.8 g/dL (6.0-8.3)
[2025-03-21 08:49] LABS: ABG BASE EXCESS 4.6 mmol/L (-2.0-3.0); ABG HCO3 26.6 mmol/L (21.0-28.0); ABG OXYGEN SATURATION 89.2 % (94.0-98.0); ABG PCO2 32 mmHg (32-45); ABG PH 7.539 (7.350-7.450); VENT MODE, BG 2 L NC (ROOM AIR)
[2025-03-21 08:58] LABS: PO2, ARTERIAL BG 48.7 mmHg (83.0-108.0)
--- NOTE | 2025-03-21 10:30 | NUR ---
PT order received. Patient in the process of being transferred to ICU due to possible aspiration. PT to follow, may need new orders depending on medical condition.
--- NOTE | 2025-03-21 11:17 | HMCIMG ---
CT HEAD/BRAIN W/O CONTRAST INDICATION: DECREASED MENTAL STATUS TECHNIQUE: CT HEAD/BRAIN W/O CONTRAST. CT was performed with one or more of the following dose reduction techniques: Automated exposure control, adjustment of the mA and/or kV according to the patient's size, or use of the iterative reconstruction technique. Comparison: None FINDINGS: Cerebral atrophy seen. Nonspecific periventricular and subcortical white matters changes are noted likely representing small vessel ischemic changes. No midline shift or herniation. No extra axial collection. No acute intracranial bleed. Old infarcts in the right basal ganglia. The visualized paranasal sinuses and mastoid air cells are normally aerated. IMPRESSION: Diffuse atrophy. No acute intracranial bleed is seen. Nonspecific white matter changes Old lacunar infarct in right basal ganglia.
[2025-03-21] MEDS: Vitamin B Complex/Vit C/Folic Acid PO SCH (11:46)
--- NOTE | 2025-03-21 11:57 | HMCIMG ---
INDICATION: SOB TECHNIQUE: CHEST 1VW COMPARISON: None FINDINGS AND IMPRESSION: Mild bilateral airspace consolidation suggesting vascular congestion/edema versus pneumonia. Right permacath is in place. There is trace right effusion. Cardiac silhouette is within normal limits. Mild degenerative changes of the spine. The visualized upper abdomen appears unremarkable.
--- NOTE | 2025-03-21 11:59 | HMCIMG ---
ABD 1VW HISTORY: poss obstruction, aspiration TECHNIQUE: ABD 1VW. COMPARISON: None. FINDINGS AND IMPRESSION: Nonspecific bowel gas pattern is seen. Vascular stents seen in the bilateral iliac system and IVC. Degenerative changes of the spine are seen.
--- NOTE | 2025-03-21 12:08 | PN ---
[facility] PROGRESS NOTE Date of Service: Mar 21, 2025 Time of Service: 11:59 SUBJECTIVE: [ 59-year-old female not a good historian, with past medical history of CHF, hypertension , severe peripheral vascular disease, diabetes and end-stage renal disease on hemodialysis Saturday who was brought by EMS to the ED for complaints of pain to buttocks and bilateral lower extremities and fever.Patient reports she was recently admitted at [facility] [place] for fluid overload and was discharged 2 days ago .Patient states she has a left AKA that was done 2 weeks ago and looks infected and she also has a multiple wound ulcers with some necrosis to right lower extremity and both extremities are swollen,with erythema and warm to to touch .Patient has no records here for any admissions. Upon arrival to the ED vital signs temperature 101.5, heart rate 92 blood pressure 130/71 saturation 98% on room air Seen and examined patient int he ED awake,alert and coherent and irritable.Patient denies chest pain,palpitation,cough and shortness of breath. Latest vital signs temperature 99.1, heart rate 95, blood pressure 114/60 saturation 98% on room air. Labs: WBC 11 , hemoglobin 9, hematocrit 29 platelet count 199. Chloride 99, BUN 32, creatinine 4.5 GFR 11, calcium 7.4 troponin 400 BNP 5000 chest x-ray, arterial ultrasound and venous Doppler result are still pending at this time. ECG unavailable at this time. While in the ER patient received Zosyn IV and fentanyl 50 mcg IV. We will admit patient for further medical management. 03/20/2025. Patient seen and examined denies any new complaints. 2D echo report discussed with the patient patient has low EF she is aware of that. Patient was seen by Cardiology Dr. Hodge no interventions planned. CT scan of the left below-knee amputation stump was done did reveal soft tissue edema no abscess noted. Pending ID consult. 03/21/2025. Patient was seen and examined. I received a call from nursing that patient was only responding to sternal rub and not waking up, immediately ABG was ordered which showed hypoxia no hypercapnia, injection of Narcan was given with some improvement in her mental status, CT head stat was ordered. Chest x- ray was ordered. Patient was transferred to PCU. Critical care consult was placed. Patient mental status improved she is alert oriented time three at this point. REVIEW OF SYSTEMS CONSTITUTIONAL: Denies fevers, chills, or night sweats. No unintentional weight loss reported. NEUROLOGICAL: Denies headache, amaurosis fugax, motor weakness, sensory deficit, vertigo/spinning sensation, gait abnormalities, or tremors. ENT: No hearing loss, otalgia, otorrhea, rhinitis, rhinorrhea, hoarseness, or sore throat. CARDIOVASCULAR: Denies any exertional angina, dyspnea on exertion, orthopnea, paroxysmal nocturnal dyspnea, palpitations, life-threatening arrhythmias, claudication. PULMONARY: Denies any shortness of breath, cough, phlegm/sputum, hemoptysis, pleuritic chest pain. SLEEP: Denies morning headaches, daytime somnolence or napping. Denies difficulty falling asleep, staying asleep, waking from sleep. Denies knowledge of snoring. GASTROINTESTINAL: Denies any type of dysphagia to either liquids or solids. Denies nausea, vomiting, pyrosis, early satiety, abdominal pain, diarrhea, constipation, or changes in stool consistency or caliber. Denies coffee-ground emesis, hematemesis, hematochezia, or melanotic stools. GENITOURINARY: Denies frequency, urgency, nocturia, hematuria or incontinence (Storage/Irritative symptoms.) Low urinary stream, straining to void, urinary intermittency or hesitancy, splitting of the voiding stream, terminal dribbling. ENDOCRINOLOGIC: Denies polyuria, polydipsia, polyphagia or heat/cold intolerances. HEMATOLOGIC: Denies thrombophilia/previous clots, or coagulopathy/bleeding disorders. ONCOLOGIC: Denies personal history of malignancy. DERMATOLOGIC: Denies rashes or pruritus. PSYCHIATRIC: Denies any suicidal or homicidal ideation. Denies hallucinations. PHYSICAL EXAM GENERAL APPEARANCE: The patient is awake, alert, and oriented, in no acute cardiopulmonary distress. NEUROLOGICAL: Cranial nerves II-XII grossly intact. Motor is 5/5 in bilateral upper and lower extremities proximal to distal. No sensory deficits. HEENT: Face is symmetric. Pupils are equal and reactive. Extraocular movements are intact. NECK: Supple. No JVD. No thyromegaly. No submental, submandibular, pre- /postauricular, occipital or supraclavicular lymphadenopathy. CHEST: Normal chest expansion. No Telemetry. LUNGS: Absence of any rales, rhonchi or any wheezing. CARDIOVASCULAR: Regular. S1 and S2 normal. No appreciable rubs, murmurs or gallops. ABDOMEN: Soft, nontender, and nondistended. There is no rebound, voluntary guarding, or rigidity. : Deferred. No Ta. EXTREMITIES: Left AKA with emily intact. Swollen right lower extremity SKIN: Infected left stump and right lower extremity multiple necrotic wound ulcers Vital Signs (last 8hr) Date Time Temp Pulse Resp B/P (MAP) Pulse Ox O2 Delivery O2 Flow Rate FiO2 03/21/25 09:48 98.6 77 17 125/50 100 Nonrebreathing Mask 15.0 03/21/25 08:45 26 N/Cannula Low lpm 2.0 28 03/21/25 07:20 97.5 69 18 112/49 99 Room Air 21 03/21/25 04:00 97.9 68 18 104/52 100 Room Air LABS: Laboratory: Test 03/21/25 11:50 03/21/25 08:50 03/21/25 08:47 03/21/25 05:15 Range/Units Whole Blood Glucose 77 70-110 MG/DL Ammonia < 10 L 11-32 umol/L Blood Gas Specimen Type Arterial Arterial Blood pH 7.539 H 7.350-7.450 Arterial Blood Partial Pressure CO2 32 32-45 mmHg Arterial Blood Partial Pressure O2 48.7 *L 83.0-108.0 mmHg Arterial Blood HCO3 26.6 21.0-28.0 mmol/L Arterial Blood Oxygen Saturation 89.2 L 94.0-98.0 % Arterial Blood Base Excess 4.6 H -2.0-3.0 mmol/L Blood Gas Temperature 37.0 35.5-37.0 CELSIUS Blood Gas Flow-by 2.00 0.00-15.00 L/min Blood Gas Vent Mode 2 L NC ROOM AIR FiO2 28.0 % Blood Gas Specimen Comment RR, KAT RN White Blood Count 9.8 4.8-10.8 K/uL Red Blood Count 2.48 L 4.00-5.50 MIL/uL Hemoglobin 7.4 L 12.0-16.0 g/dL Hematocrit 24.0 L 36-48 % Mean Corpuscular Volume 96.8 79-99 fL Mean Corpuscular Hemoglobin 29.8 27.0-33.0 pg Mean Corpuscular Hemoglobin Concent 30.8 L 32.0-36.0 g/dL Red Cell Distribution Width 18.0 H 11.0-15.5 % Platelet Count 228 # 130-400 K/uL Mean Platelet Volume 11.6 H 7.5-10.5 fL Immature Granulocyte % (Auto) 0.5 0-1 % Neutrophils (%) (Auto) 74.7 40.0-77.0 % Lymphocytes (%) (Auto) 13.3 L 21.0-51.0 % Monocytes (%) (Auto) 9.7 3.0-13.0 % Eosinophils (%) (Auto) 1.0 0.0-8.0 % Basophils (%) (Auto) 0.8 0.0-5.0 % Neutrophils # (Auto) 7.3 1.8-7.7 K/uL Lymphocytes # (Auto) 1.3 1.0-4.8 K/uL Monocytes # (Auto) 1.0 0.1-1.0 K/uL Eosinophils # (Auto) 0.10 0.00-0.70 K/uL Basophils # (Auto) 0.08 0.00-0.20 K/uL Absolute Immature Granulocyte (auto 0.05 0-1 K/uL Segmented Neutrophils % 78 H 40-70 % Band Neutrophils % 1 0-2 % Lymphocytes % (Manual) 11 L 22-44 % Monocytes % (Manual) 9 2-9 % Eosinophils % (Manual) 1 1-6 % Nucleated Red Blood Cells 0.0 0.0-0.19 % Differential Comment MANUAL DIFFERENTIAL White Cell Morphology Comment Platelet Morphology Comment ADEQUATE Red Blood Cell Morphology See comments Sodium Level 140 136-145 mmol/L Potassium Level 4.0 3.5-5.1 mmol/L Chloride Level 109 101-111 mmol/L Carbon Dioxide Level 30 21-32 mmol/L Blood Urea Nitrogen 30 H 7-18 mg/dL Creatinine 4.1 H 0.5-1.0 mg/dL Glomerular Filtration Rate Calc 12 >90 mL/min Random Glucose 85 70-105 mg/dL Total Calcium 7.2 L 8.5-10.1 mg/dL Phosphorus Level 5.1 H 2.5-4.9 mg/dL Total Bilirubin 0.6 0.2-1.0 mg/dL Aspartate Amino Transf (AST/SGOT) 13 10-37 U/L Alanine Aminotransferase (ALT/SGPT) 7 L 12-78 U/L Alkaline Phosphatase 97 50-136 U/L C-Reactive Protein, Quantitative 86.90 H 0.5-3.0 mg/L Total Protein 5.8 L 6.0-8.3 g/dL Albumin 1.8 L 3.5-5.0 g/dL Test 03/20/25 04:36 Range/Units Reticulocyte Count (auto) 4.51963 H 0.42-2.23 % Immature Reticulocyte Fraction 23.30 H 0.18-0.48 % Magnesium Level 1.70 L 1.80-2.40 mg/dL Iron Level 22 L 50-170 mcg/dL Total Iron Binding Capacity 87 L 250-450 mcg/dL Percent Iron Saturation 25.2 22-44 % Ferritin 986 H 15-150 ng/mL Vitamin B12 Level 1209 H 193-986 pg/mL Folic Acid (LAB) 3.50 2-20 ng/mL Current Medications Medications (Trade) Dose Ordered Sig/Lori Route PRN Reason Start Time Stop Time Status Last Admin Dose Admin Acetaminophen (TYLenol 325MG TAB) 650 mg Q4H PRN PO MILD PAIN (1-3) 03/19/25 05:00 04/18/25 04:59 Acetaminophen (TYLenol 325MG TAB) 650 mg Q6H PRN PO TEMPERATURE GREATER THAN 101.5 03/19/25 05:00 04/18/25 04:59 Acetaminophen/ Hydrocodone Bitart (NORco 5/325MG) 1 tab Q4H PRN PO MODERATE PAIN (4-6) 03/19/25 05:00 03/24/25 04:59 03/20/25 09:10 1 TAB Acetaminophen/ Hydrocodone Bitart (NORco 5/325MG) 2 tab Q4H PRN PO SEVERE PAIN (7-10) 03/19/25 05:00 03/24/25 04:59 03/20/25 15:44 2 TAB Aspirin (Aspirin 81mg Ec Tab) 81 mg DAILY PO 03/20/25 09:00 04/19/25 08:59 03/21/25 11:46 81 MG Calcitriol (Rocaltrol 0.25mcg Cap) 0.25 mcg DAILY PO 03/20/25 09:00 04/19/25 08:59 03/21/25 11:47 0.25 MCG Cefepime HCl (MAXipime 1 GM vial) 1 gm Q24H IVPB 03/19/25 05:00 03/29/25 04:59 03/21/25 05:26 1 GM Dextrose (D50w) 50 ml AD PRN IV HYPOGLYCEMIA PROTOCOL 03/19/25 05:00 04/18/25 04:59 Famotidine (Pepcid 20mg Tab) 10 mg Q48H PO 03/19/25 05:00 04/18/25 04:59 03/21/25 11:47 10 MG Furosemide (LASix 40MG TAB) 40 mg DAILY PO 03/20/25 09:00 04/19/25 08:59 03/21/25 11:47 40 MG Glucagon (Glucagon 1mg Kit) 1 mg AD PRN IM HYPOGLYCEMIA PROTOCOL 03/19/25 05:00 04/18/25 04:59 Heparin Sodium (Porcine) (HEParin 5,000 UNIT VIAL) 5,000 unit AD IRRIG 03/19/25 11:00 03/20/25 14:36 DC Heparin Sodium (Porcine) (HEParin 5,000 UNIT VIAL) 5,000 unit Q12H SQ 03/19/25 05:30 03/19/25 17:09 DC 03/19/25 05:31 5,000 UNIT Heparin Sodium (Porcine) (HEParin 5,000 UNIT VIAL) 5,000 unit Q12H SQ 03/19/25 20:00 04/18/25 19:59 03/20/25 21:04 5,000 UNIT Heparin Sodium (Porcine) (HEParin 5,000 UNIT VIAL) 10,000 unit AD IRRIG 03/20/25 15:00 04/18/25 16:29 Heparin Sodium (Porcine) (HEParin 5,000 UNIT VIAL) 10,000 unit AD SQ 03/19/25 16:30 03/20/25 14:37 DC Hydralazine HCl ([id number] TAB) 100 mg BID PO 03/19/25 21:00 04/18/25 20:59 03/20/25 09:04 100 MG Insulin Human Regular (humuLIN R 100 UNIT/ML 3ML) INSULIN SLIDING SCAL... ACHS SQ 03/19/25 07:30 04/18/25 07:29 Isosorbide Mononitrate (Imdur 60mg Sr) 60 mg DAILY PO 03/20/25 09:00 04/19/25 08:59 03/21/25 11:46 60 MG Leptospermum Honey (Medihoney) 1 appl DAILY TP 03/20/25 16:00 04/19/25 15:59 03/21/25 11:46 1 APPL Lidocaine HCl (Lidocaine HCl Mpf 1% 2ml Vial) 0.5 ml AD IJ 03/19/25 11:00 03/19/25 11:01 DC Lidocaine/ Prilocaine (Emla) 1 appl ONCE TP 03/19/25 11:00 03/19/25 11:01 DC Metoprolol Succinate (TopROL XL) 100 mg DAILY PO 03/20/25 09:00 04/19/25 08:59 03/20/25 09:04 100 MG Metronidazole/ Sodium Chloride 100 ml @ 100 mls/hr Q8H6 IVPB 03/19/25 06:00 03/29/25 05:59 03/21/25 05:26 100 MLS/HR Midodrine (PROAMatine 5 MG TABLET) 10 mg TID PO 03/20/25 22:30 04/19/25 22:29 03/21/25 11:47 10 MG Ondansetron HCl (zoFRAN 4MG INJ) 4 mg Q6H PRN IV NAUSEA/VOMITING 03/19/25 05:00 04/18/25 04:59 03/20/25 23:59 4 MG Piperacillin Sod/ Tazobactam Sod (Zosyn 3.375gm+NS 50ml) 3.375 gm ONCE STAT IV 03/19/25 00:50 03/19/25 00:56 DC 03/19/25 01:48 3.375 GM Sodium Bicarbonate (Sodium Bicarbonate) 650 mg TID PO 03/19/25 14:00 03/20/25 13:48 DC 03/20/25 09:03 650 MG Sodium Chloride 250 ml @ 0 mls/hr AD IV 03/19/25 11:00 04/18/25 10:59 Sodium Chloride 1,000 ml @ 0 mls/hr ONCE IV 03/19/25 11:00 04/18/25 10:59 Sodium Chloride 1,000 ml @ 0 mls/hr ONCE IV 03/19/25 16:30 03/19/25 20:30 DC 03/19/25 20:29 333 MLS/HR Vancomycin HCl (Vancomycin 750mg) 750 mg [id number][DIALYSIS] IVPB 03/22/25 16:00 04/01/25 15:59 Vancomycin HCl (Vancomycin Protocol) 1 each AD IV 03/20/25 15:00 04/03/25 14:59 Vitamin B Complex/ Vit C/Folic Acid (Nephrovite Tablet) 1 cap DAILY PO 03/21/25 09:00 04/20/25 08:59 03/21/25 11:46 1 CAP DIAGNOSTICS / RADIOLOGY: [ ] ASSESSMENT: Severe peripheral vascular disease POA Acute hypoxic respiratory failure not POA Metabolic encephalopathy not POA. Infected left AKA stump POA Multiple necrotic wound ulcers to right lower extremity POA Elevated troponin due to demand ischemia POA Acute on chronic systolic CHF POA End-stage renal disease on hemodialysis POA Diabetes POA Acute anemia due to CKD POA Hypertension POA Sepsis without septic shock source infected wounds to bilateral lower extremi ties POA PLAN: Patient was placed on non-rebreather able mask. Follow pulmonary critical care consult. May need to rule out pulmonary embolism if hypoxia does not improve. Patient has low transferrin saturation we will give IV Venofer with dialysis monitor hemoglobin Follow ID consult. Continue with IV cefepime Flagyl and vancomycin. Adjust according to cultures. CT scan of the leg did not show any drainable abscess. We will leave the decision to do MRI on ID. Appreciate cardiology consult. Continue on goal-directed medical therapy for systolic CHF. Patient not a candidate of Richar or Arb as blood pressure is on the lower side. We will leave that decision to Cardiology. Patient already on metoprolol succinate. We will need LifeVest on discharge if agreeable and if Cardiology agrees. Patient has iron-deficiency anemia on top of anemia due to chronic disease transferrin saturation in ESRD patients should be 30%. We will give IV iron during dialysis. GI DVT prophylaxis per protocol JANES COTE MD Mar 21, 2025 12:08
--- NOTE | 2025-03-21 13:08 | NUR ---
PENDING CONSENT & IV SITE FOR CT EXAM. PER NURSE, PATIENT SCHEDULED FOR DIALYSIS EARLY TOMORROW MORNING.
--- NOTE | 2025-03-21 13:50 | PN ---
NEPHROLOGY PROGRESS NOTE Date/Time Patient Seen: Mar 21, 2025 SUBJECTIVE: This is a 59-year-old female with history of diabetes mellitus, hypertension, end-stage renal disease on hemodialysis Saturday, peripheral vascular disease with left AKA, anemia. She has history of vascular disease. The patient was recently admitted to an outside hospital with nonhealing wounds. The patient did undergo lower extremity amputation. The patient also initiated on dialysis during that admission. The patient was discharged to home. She did not follow up at the dialysis unit. She did not follow up with the surgeon. She presents back to the hospital with increasing shortness of breath and nonhealing wounds. She tolerated dialysis without difficulty She was transferred to [facility] due to hypoxia and altered mental status. Nurse reports hypotension. Cardiology workup is ongoing She was seen in the medical floor, in no acute distress REVIEW OF SYSTEMS: GENERAL: Positive for generalized weakness NEUROLOGIC: Negative for any blurry vision, blind spots, double vision, facial asymmetry, dysphagia, dysarthria, hemiparesis, hemisensory deficits, vertigo, ataxia. HEENT: Negative for any head trauma, neck trauma, neck stiffness, photophobia, phonophobia, sinusitis, rhinitis. CARDIAC: Negative for any chest pain, dyspnea on exertion, paroxysmal nocturnal dyspnea, peripheral edema. PULMONARY: Negative for any shortness of breath, wheezing, COPD, or TB exposure. GASTROINTESTINAL: Negative for any abdominal pain, nausea, vomiting, bright red blood per rectum, melena. GENITOURINARY: Negative for any dysuria, hematuria, incontinence. INTEGUMENTARY: Negative for any rashes, cuts, insect bites. RHEUMATOLOGIC: Negative for any joint pains, photosensitive rashes, history of vasculitis or kidney problems. HEMATOLOGIC: Negative for any abnormal bruising, frequent infections or bleeding. Vital Signs (last 8hr) Date Time Temp Pulse Resp B/P (MAP) Pulse Ox O2 Delivery O2 Flow Rate FiO2 03/20/25 12:00 98.8 81 19 109/56 100 Room Air 03/20/25 08:16 98.2 89 19 133/60 99 Room Air PHYSICAL EXAM: GENERAL: Alert and oriented x 3. No acute distress. Well-nourished. EYES: EOMI. Anicteric. HENT: Moist mucous membranes. No scleral icterus. No cervical lymphadenopathy. LUNGS: Clear to auscultation bilaterally. No accessory muscle use. CARDIOVASCULAR: Regular rate and rhythm. No murmur. No JVD. ABDOMEN: Soft, non-tender and non-distended. No palpable masses. EXTREMITIES: No edema. Non-tender. SKIN: No rashes or lesions. Warm. NEUROLOGIC: No focal neurological deficits. CN II-XII grossly intact, but not individually tested. PSYCHIATRIC: Cooperative. Appropriate mood and affect. Current Medications Medications (Trade) Dose Ordered Sig/Lori Route PRN Reason Start Time Stop Time Status Last Admin Dose Admin Acetaminophen (TYLenol 325MG TAB) 650 mg Q4H PRN PO MILD PAIN (1-3) 03/19/25 05:00 04/18/25 04:59 Acetaminophen (TYLenol 325MG TAB) 650 mg Q6H PRN PO TEMPERATURE GREATER THAN 101.5 03/19/25 05:00 04/18/25 04:59 Acetaminophen/ Hydrocodone Bitart (NORco 5/325MG) 1 tab Q4H PRN PO MODERATE PAIN (4-6) 03/19/25 05:00 03/24/25 04:59 03/20/25 09:10 1 TAB Acetaminophen/ Hydrocodone Bitart (NORco 5/325MG) 2 tab Q4H PRN PO SEVERE PAIN (7-10) 03/19/25 05:00 03/24/25 04:59 03/20/25 04:28 2 TAB Aspirin (Aspirin 81mg Ec Tab) 81 mg DAILY PO 03/20/25 09:00 04/19/25 08:59 03/20/25 09:03 81 MG Calcitriol (Rocaltrol 0.25mcg Cap) 0.25 mcg DAILY PO 03/20/25 09:00 04/19/25 08:59 03/20/25 09:04 0.25 MCG Cefepime HCl (MAXipime 1 GM vial) 1 gm Q24H IVPB 03/19/25 05:00 03/29/25 04:59 03/20/25 04:28 1 GM Dextrose (D50w) 50 ml AD PRN IV HYPOGLYCEMIA PROTOCOL 03/19/25 05:00 04/18/25 04:59 Famotidine (Pepcid 20mg Tab) 10 mg Q48H PO 03/19/25 05:00 04/18/25 04:59 03/19/25 05:31 10 MG Furosemide (LASix 40MG TAB) 40 mg DAILY PO 03/20/25 09:00 04/19/25 08:59 03/20/25 09:05 40 MG Glucagon (Glucagon 1mg Kit) 1 mg AD PRN IM HYPOGLYCEMIA PROTOCOL 03/19/25 05:00 04/18/25 04:59 Heparin Sodium (Porcine) (HEParin 5,000 UNIT VIAL) 5,000 unit AD IRRIG 03/19/25 11:00 04/18/25 10:59 Heparin Sodium (Porcine) (HEParin 5,000 UNIT VIAL) 5,000 unit Q12H SQ 03/19/25 05:30 03/19/25 17:09 DC 03/19/25 05:31 5,000 UNIT Heparin Sodium (Porcine) (HEParin 5,000 UNIT VIAL) 5,000 unit Q12H SQ 03/19/25 20:00 04/18/25 19:59 03/20/25 09:06 5,000 UNIT Heparin Sodium (Porcine) (HEParin 5,000 UNIT VIAL) 10,000 unit AD SQ 03/19/25 16:30 04/18/25 16:29 Hydralazine HCl ([id number] TAB) 100 mg BID PO 03/19/25 21:00 04/18/25 20:59 03/20/25 09:04 100 MG Insulin Human Regular (humuLIN R 100 UNIT/ML 3ML) INSULIN SLIDING SCAL... ACHS SQ 03/19/25 07:30 04/18/25 07:29 Isosorbide Mononitrate (Imdur 60mg Sr) 60 mg DAILY PO 03/20/25 09:00 04/19/25 08:59 03/20/25 09:04 60 MG Leptospermum Honey (Medihoney) 1 appl DAILY TP 03/20/25 16:00 04/19/25 15:59 Lidocaine HCl (Lidocaine HCl Mpf 1% 2ml Vial) 0.5 ml AD IJ 03/19/25 11:00 03/19/25 11:01 DC Lidocaine/ Prilocaine (Emla) 1 appl ONCE TP 03/19/25 11:00 03/19/25 11:01 DC Metoprolol Succinate (TopROL XL) 100 mg DAILY PO 03/20/25 09:00 04/19/25 08:59 03/20/25 09:04 100 MG Metronidazole/ Sodium Chloride 100 ml @ 100 mls/hr Q8H6 IVPB 03/19/25 06:00 03/29/25 05:59 03/20/25 05:57 100 MLS/HR Ondansetron HCl (zoFRAN 4MG INJ) 4 mg Q6H PRN IV NAUSEA/VOMITING 03/19/25 05:00 04/18/25 04:59 Piperacillin Sod/ Tazobactam Sod (Zosyn 3.375gm+NS 50ml) 3.375 gm ONCE STAT IV 03/19/25 00:50 03/19/25 00:56 DC 03/19/25 01:48 3.375 GM Sodium Bicarbonate (Sodium Bicarbonate) 650 mg TID PO 03/19/25 14:00 04/18/25 13:59 03/20/25 09:03 650 MG Sodium Chloride 250 ml @ 0 mls/hr AD IV 03/19/25 11:00 04/18/25 10:59 Sodium Chloride 1,000 ml @ 0 mls/hr ONCE IV 03/19/25 11:00 04/18/25 10:59 Sodium Chloride 1,000 ml @ 0 mls/hr ONCE IV 03/19/25 16:30 03/19/25 20:30 DC 03/19/25 20:29 333 MLS/HR LABORATORY: [ ] Hematology Labs: Test 03/21/25 05:15 03/20/25 04:36 Range/Units White Blood Count 9.8 4.8-10.8 K/uL Red Blood Count 2.48 L 4.00-5.50 MIL/uL Hemoglobin 7.4 L 12.0-16.0 g/dL Hematocrit 24.0 L 36-48 % Mean Corpuscular Volume 96.8 79-99 fL Mean Corpuscular Hemoglobin 29.8 27.0-33.0 pg Mean Corpuscular Hemoglobin Concent 30.8 L 32.0-36.0 g/dL Red Cell Distribution Width 18.0 H 11.0-15.5 % Platelet Count 228 # 130-400 K/uL Mean Platelet Volume 11.6 H 7.5-10.5 fL Immature Granulocyte % (Auto) 0.5 0-1 % Neutrophils (%) (Auto) 74.7 40.0-77.0 % Lymphocytes (%) (Auto) 13.3 L 21.0-51.0 % Monocytes (%) (Auto) 9.7 3.0-13.0 % Eosinophils (%) (Auto) 1.0 0.0-8.0 % Basophils (%) (Auto) 0.8 0.0-5.0 % Neutrophils # (Auto) 7.3 1.8-7.7 K/uL Lymphocytes # (Auto) 1.3 1.0-4.8 K/uL Monocytes # (Auto) 1.0 0.1-1.0 K/uL Eosinophils # (Auto) 0.10 0.00-0.70 K/uL Basophils # (Auto) 0.08 0.00-0.20 K/uL Absolute Immature Granulocyte (auto 0.05 0-1 K/uL Segmented Neutrophils % 78 H 40-70 % Band Neutrophils % 1 0-2 % Lymphocytes % (Manual) 11 L 22-44 % Monocytes % (Manual) 9 2-9 % Eosinophils % (Manual) 1 1-6 % Nucleated Red Blood Cells 0.0 0.0-0.19 % Differential Comment MANUAL DIFFERENTIAL White Cell Morphology Comment Platelet Morphology Comment ADEQUATE Red Blood Cell Morphology See comments Reticulocyte Count (auto) 4.99466 H 0.42-2.23 % Immature Reticulocyte Fraction 23.30 H 0.18-0.48 % Chemistry Labs: Test 03/21/25 11:50 03/21/25 08:50 03/21/25 05:15 03/20/25 04:36 Range/Units Whole Blood Glucose 77 70-110 MG/DL Ammonia < 10 L 11-32 umol/L Sodium Level 140 136-145 mmol/L Potassium Level 4.0 3.5-5.1 mmol/L Chloride Level 109 101-111 mmol/L Carbon Dioxide Level 30 21-32 mmol/L Blood Urea Nitrogen 30 H 7-18 mg/dL Creatinine 4.1 H 0.5-1.0 mg/dL Glomerular Filtration Rate Calc 12 >90 mL/min Random Glucose 85 70-105 mg/dL Total Calcium 7.2 L 8.5-10.1 mg/dL Phosphorus Level 5.1 H 2.5-4.9 mg/dL Total Bilirubin 0.6 0.2-1.0 mg/dL Aspartate Amino Transf (AST/SGOT) 13 10-37 U/L Alanine Aminotransferase (ALT/SGPT) 7 L 12-78 U/L Alkaline Phosphatase 97 50-136 U/L C-Reactive Protein, Quantitative 86.90 H 0.5-3.0 mg/L Total Protein 5.8 L 6.0-8.3 g/dL Albumin 1.8 L 3.5-5.0 g/dL Magnesium Level 1.70 L 1.80-2.40 mg/dL Iron Level 22 L 50-170 mcg/dL Total Iron Binding Capacity 87 L 250-450 mcg/dL Percent Iron Saturation 25.2 22-44 % Ferritin 986 H 15-150 ng/mL Vitamin B12 Level 1209 H 193-986 pg/mL Folic Acid (LAB) 3.50 2-20 ng/mL DIAGNOSTICS / RADIOLOGY: REASON: poss obstruction, aspiration ORDERING PHYSICIAN: IRAIS SALGADO PRESIDENT/[employer] PROCEDURE: ABD 1VW - ABD 1VW ABD 1VW HISTORY: poss obstruction, aspiration TECHNIQUE: ABD 1VW. COMPARISON: None. FINDINGS AND IMPRESSION: Nonspecific bowel gas pattern is seen. Vascular stents seen in the bilateral iliac system and IVC. Degenerative changes of the spine are seen. DICTATED BY: MICH FIORE MD DATE: 03/21/25 1157 REASON: SOB ORDERING PHYSICIAN: JANES COTE MD PROCEDURE: CXR1VW - CHEST 1VW INDICATION: SOB TECHNIQUE: CHEST 1VW COMPARISON: None FINDINGS AND IMPRESSION: Mild bilateral airspace consolidation suggesting vascular congestion/edema versus pneumonia. Right permacath is in place. There is trace right effusion. Cardiac silhouette is within normal limits. Mild degenerative changes of the spine. The visualized upper abdomen appears unremarkable. DICTATED BY: MICH FIORE MD DATE: 03/21/25 115 REASON: DECREASED MENTAL STATUS ORDERING PHYSICIAN: JANES COTE MD PROCEDURE: HEAD WO - CT HEAD/BRAIN W/O CONTRAST CT HEAD/BRAIN W/O CONTRAST INDICATION: DECREASED MENTAL STATUS TECHNIQUE: CT HEAD/BRAIN W/O CONTRAST. CT was performed with one or more of the following dose reduction techniques: Automated exposure control, adjustment of the mA and/or kV according to the patient's size, or use of the iterative reconstruction technique. Comparison: None FINDINGS: Cerebral atrophy seen. Nonspecific periventricular and subcortical white matters changes are noted likely representing small vessel ischemic changes. No midline shift or herniation. No extra axial collection. No acute intracranial bleed. Old infarcts in the right basal ganglia. The visualized paranasal sinuses and mastoid air cells are normally aerated. IMPRESSION: Diffuse atrophy. No acute intracranial bleed is seen. Nonspecific white matter changes Old lacunar infarct in right basal ganglia. DICTATED BY: MICH FIORE MD DATE: 03/21/25 1114 REASON: aspiration ORDERING PHYSICIAN: IRAIS SALGADO PRESIDENT/[employer] PROCEDURE: CXR1VW - CHEST 1VW INDICATION: aspiration TECHNIQUE: CHEST 1VW COMPARISON: 03/19/2025 FINDINGS AND IMPRESSION: Mild bilateral airspace consolidation suggesting vascular congestion/edema versus pneumonia. Right permacath is in place. Trace of right effusion. Cardiac silhouette is within normal limits. Mild degenerative changes of the spine. The visualized upper abdomen appears unremarkable. DICTATED BY: MICH FIORE MD DATE: 03/21/25 0828 REASON: rule out dvt ORDERING PHYSICIAN: JANES COTE MD PROCEDURE: VENOUS AYLA - US VENOUS DOPPLER BILATERAL US VENOUS DOPPLER BILATERAL INDICATION: Swelling. Rule out out dvt TECHNIQUE: US VENOUS DOPPLER BILATERAL Real-time venous Doppler ultrasound was performed using B mode, color flow and spectral analysis. FINDINGS: The visualized greater saphenous junction, common femoral, deep femoral, superficial femoral veins demonstrate normal compressibility and flow. No DVT is identified. Of both knee amputation changes seen in the left. The lesion of the right calf is degraded due to overlying bandage. IMPRESSION: No evidence of DVT in the visualized bilateral extremities. DICTATED BY: MICH FIORE MD DATE: 03/20/25 1546 REASON: stump infection left aka ORDERING PHYSICIAN: JANES COTE MD PROCEDURE: LOW EXT WO - CT LOW EXT W/O CONTRAST CT LOW EXT W/O CONTRAST HISTORY: Stump infection COMPARISON: None TECHNIQUE: Multiple sequential axial images of the left femur were obtained including post processing sagittal and coronal reconstruction images. Patient was not given contrast through intravenous route. FINDINGS: Patient is status post left above-knee amputation. Extensive vascular calcifications are seen. Soft tissue swelling is seen. No definite erosive changes are noted of the bony structure. Evaluation for osteomyelitis is limited with CT. There is no acute displaced fracture or dislocation. Subcutaneous fat stranding is seen. IMPRESSION: 1. Findings as described above. CT was performed with one or more following dose reduction techniques: automated exposure control, adjustment of the mA and kv according to patient's size, or use of a iterative reconstruction technique. DICTATED BY: YENI BECK MD DATE: 03/20/251105 REASON: elevated Troponin and BNP ORDERING PHYSICIAN: LUIS SANDERS MD PROCEDURE: ECHO [facility] - ECHO 2-D COMPLETE APPROVED REPORT EXAM: Two-dimensional and M-mode echocardiogram with Doppler and color Doppler. INDICATION ICD: elevated troponin and BNP 2D Dimensions RVDd 3.8 cm LVEF(%) 42.1 (>50%) LVED Vol(simp.) 132.0 mL IVSd 1.0 (0.7-1.1cm) FS(%) 21 % LVES Vol(simp.) 85.0 mL LVDd 5.0 (3.8-5.6cm) LA (2D) 3.5 (1.6-4.0cm) LVEF(%, simp.) 36 % PWd 1.4 (0.7-1.1cm) Ao Root(2D) 2.5 (2.0-3.7cm) LA ESV INDEX (BP) 36.42 mL/m2 LVDs 3.9 (2.5-4.0cm) LVOT diam 1.9 (1.8-2.4cm) IVC diam 1.5 cm Deformation Strain Apical 4 -6.8 % Apical 2 -8.6 % Apical 3 -4.9 % Global Strain -6.8 % M-Mode Dimensions EPSS 1.0 cm LA (MM) 3.2 (1.6-4.0cm) Ao Root(MM) 2.7 (2.0-3.7cm) Aortic Valve AoV Vmax 2.4 m/s Ao Peak GR 22.6 mmHg LVOT Vmax 1.1 m/s AoV VTI 0.4 m Ao Mean GR 11.6 mmHg LVOT VTI 0.19 m ANAYELI (VMAX) 1.26 cm2 ANAYELI (VTI) 1.3 cm2 Mitral Valve MV E Vmax 99.3 cm/s DECEL Time 193 ms MV Peak GR 9 mmHg MV A Vmax 136.5 cm/s P 1/2 T 50 ms MV Mean GR 5 mmHg E/A ratio 0.7 MVA (PHT) 4.4 cm2 MVA (VTI) 1.64 cm2 TDI E/E' Medial 31.6 E/E' Lateral 15.4 Medial E' Peak V 3.14 cm/s Lateral E' Peak V 6.45 cm/s Pulmonary Valve PV Vmax 1.1 m/s PV Mean GR 2.3 mmHg PV Peak GR 4.5 mmHg Tricuspid Valve TR Vmax 1.5 m/s RVSP 9.6 mmHg TR Peak GR 9.6 mmHg Left Ventricle Left ventricular cavity size is normal. There is normal left ventricular wall thickness. LVEF is 35-40%. Stage I diastolic dysfunction. Right Ventricle The right ventricle is normal size. The right ventricular systolic function is normal. Atria The left atrium is mildly dilated. The right atrium size is normal. Aortic Valve Cannot exclude vegetation versus calcification. The aortic valve is displays decreased opening. No aortic regurgitation is present. There is mild valvular aortic stenosis. Highest mean aortic valve gradient is 13mmHg, highest Pk gradient 26mmHg. PV 2.56 m/sec. ANAYELI 1.4 cm2. Mitral Valve The posterior mitral valve leaflet is moderately calcified. Mitral regurgitation is moderate. There is no mitral valve stenosis. Tricuspid Valve The tricuspid valve is normal in structure and function. There is trace tricuspid valve regurgitation noted. Pulmonic Valve The pulmonary valve is normal in structure and function. There is no pulmonic valvular regurgitation. Great Vessels The aortic root is normal in size. The IVC is normal in size and collapses <50% with inspiration. Pericardium No pericardial effusion. Conclusion Left ventricular cavity size is normal. LVEF is 35-40%. Stage I diastolic dysfunction. The right ventricle is normal size. The right ventricular systolic function is normal. The left atrium is mildly dilated. The right atrium size is normal. Cannot exclude vegetation versus calcification. The aortic valve is displays decreased opening. There is mild valvular aortic stenosis. Highest mean aortic valve gradient is 13mmHg, highest Pk gradient 26mmHg. PV 2.56 m/sec. ANAYELI 1.4 cm2. The posterior mitral valve leaflet is moderately calcified. Mitral regurgitation is moderate. No pericardial effusion. DICTATED BY: JODI ESPINOZA MD DATE: 03/19/25 0751 REASON: necrotic wounds B/L LE ORDERING PHYSICIAN: LUIS SANDERS MD PROCEDURE: ART B LE - US ARTERIAL BILAT LOW EXT DUPL ULTRASOUND ARTERIAL DUPLEX LOWER EXTREMITY, BILATERAL INDICATION: Leg weakness TECHNIQUE: Routine grayscale, color Doppler, and power Doppler ultrasound of the bilateral lower extremity arteries were obtained. COMPARISON: None FINDINGS: Velocities in cm/sec. RIGHT: PINKED EDGE SEWING MACHINE OPERATOR: 10, monophasic SFA: Prox no flow, Mid no flow, Distal 30, monophasic Popliteal: Not well demonstrated Anterior Tibial: Not well demonstrated Posterior Tibial: Not well demonstrated Dorsalis Pedis: No flow Collateral flow demonstrated at 30 cm/sec. LEFT: PINKED EDGE SEWING MACHINE OPERATOR: 119, triphasic SFA: Prox 57, Mid 46, Distal 57, biphasic Left [id number] amputation changes. IMPRESSION: No flow demonstrated within the proximal to mid right superficial femoral artery as well as right dorsalis pedis artery and diminished monophasic flow within the right common femoral and distal right superficial femoral arteries. Remainder of the right lower extremity arterial system was not well-demonstrated secondary to patient's contracted state and overlying bandaging. Parameters as reported. DICTATED BY: GHADA BENJAMIN MD DATE: 03/19/2529 REASON: sepsis ORDERING PHYSICIAN: LUIS SANDERS MD PROCEDURE: CXR1VW - CHEST 1VW PORTABLE CHEST RADIOGRAPH INDICATION: sepsis COMPARISON: None FINDINGS: Right-sided hemodialysis catheter in place. laboratory monitor leads overlie the field of view. Heart size is normal. The pulmonary vascularity and luana appear normal. No evidence for consolidation. Right costophrenic angle is nominally blunted more than the left. No pneumothorax detected. IMPRESSION: Trace right pleural fluid and suspect trace left pleural fluid. DICTATED BY: GHADA BENJAMIN MD DATE: 03/19/2522 ASSESSMENT: Fluid overload Anemia End-stage renal disease Severe peripheral vascular disease Acute hypoxic respiratory failure Metabolic encephalopathy Infected left AKA stump Multiple necrotic wound ulcers to right lower extremity Elevated troponin due to demand ischemia Acute CHF Diabetes mellitus type II Hypertension Sepsis without septic shock source infected wounds to bilateral lower extremities PLAN: Labs and Diagnostics/ Radiology personally reviewed and interpreted by myself and supervising physician We have reviewed dialysis and external records in detail Continue dialysis schedule Saturday, planned for contact center analyst dialysis tomorrow Discontinue hydralazine and Lasix Hold metoprolol for now. Cardiology workup is ongoing 1.5 L fluid restriction Continue to monitor H&H Epogen on dialysis days, as needed Continue with frequent monitoring of renal function, anemia, and electrolytes Order CBC, BMP, and electrolytes in the morning May use Dilaudid 0.5 mg IV every 6 hours as needed for severe pain Monitor blood pressure adjust medication doses as needed Maintain normotensive state Strict intake, output, and daily weight should be monitored Please renally adjust medications. Avoid nephrotoxics and nonsteroidal drugs. We will continue to monitor the patient closely We have discussed with the other team physicians in detail about the care plan ATTESTATION BY PHYSICIAN I have seen and examined the patient. I reviewed the documentation, medical decision making, and treatment plan as noted by the mid-level provider above. I agree with the findings and plan of care. KEISHA BLACKMAN MD, [facility] Mar 21, 2025 13:50
[2025-03-21] MEDS ORDERED: IOHEXOL 350 MG/ML 100ML INFUS..BTL IV ONE (14:24)
--- NOTE | 2025-03-21 15:18 | HMCIMG ---
CT CHEST PE PROTOCOL WWO CONT HISTORY: Shortness of breath COMPARISON: None TECHNIQUE: CT angiography of the chest was performed. The study was performed using angiographic technique with maximum intensity projection reconstruction images. Patient was given 100 cc of Omnipaque through intravenous route. FINDINGS: No CT evidence of filling defect is seen to suggest pulmonary embolus. No CT evidence of aortic dissection is seen. There are bilateral pleural effusions. Right more than left. Coronary artery calcifications are seen. No CT evidence of pleural effusion or pericardial effusion is seen. The heart is enlarged. No evidence of adrenal mass is seen. Degenerative changes of the spine are noted. Gallstones are seen in the gallbladder. There is atherosclerosis. IMPRESSION: 1. No CT evidence of acute pulmonary embolus is seen. Bilateral pleural effusions with a right more than left. Gallstones are seen in the gallbladder. CT was performed with one or more following dose reduction techniques: automated exposure control, adjustment of the mA and kv according to patient's size, or use of a iterative reconstruction technique.
--- NOTE | 2025-03-21 16:43 | PN ---
CARDIOLOGY Reason for consult: Elevated troponin HPI/story at presentation: This is a pleasant 59-year-old female with past medical history as below that was recently admitted to [facility] with prolonged hospitalization for lower extremity peripheral vascular disease. No active cardiac complaints at this time, does complain of pain in the lower extremities. 03/21/2025 No active complaints Patient was transferred to PCU due to an episode of lethargy Subjective: 03/19/2025 No extremity pain Past medical history: See below Allergies, Meds See chart Review of systems Review of Systems Constitutional: Negative for chills and fever. HENT: Negative for ear discharge and ear pain. Eyes: Negative for photophobia and discharge. Respiratory: Negative for cough, sputum production and stridor. Cardiovascular: Negative for chest pain and palpitations. Gastrointestinal: Negative for diarrhea and vomiting. Genitourinary: Negative for frequency. Musculoskeletal: Negative for myalgias. Skin: Negative for rash. Neurological: Negative for focal weakness and seizures. Endo/Heme/Allergies: Negative for polydipsia. Psychiatric/Behavioral: Negative for hallucinations. Vitals see chart PHYSICAL EXAMINATION GENERAL: The patient is alert and oriented*3 HEENT: Nonicteric sclerae, non traumatic HEART: Regular rate and rhythm with no murmurs LUNGS: Clear to auscultation bilaterally ABDOMEN: No acute issues, non tender GENITAL, RECTAL: deferred SKIN: No rash NEUROLOGIC: NFND EXTREMITIES: S/p BKA ASSESSMENT PERIPHERAL VASCULAR DISEASE With previous history of bypass to the right Please s/p amputation of the left Previous history of iliac stenting CORONARY DISEASE Status post previous intervention x 2 CHRONIC KIDNEY DISEASE Stage V ELEVATED TROPONIN Greater than 400 at presentation LOWER EXTREMITY EDEMA With possible venous insufficiency/lymphedema HISTORY OF ATRIAL FIBRILLATION On Eliquis previously HISTORY OF CVA 2023 DYSLIPIDEMIA, HYPERTENSION, DIABETES, TOBACCO USE, SLEEP APNEA CORE MEASURES Not applicable OTHER MEDICAL PROBLEMS Reviewed PLAN 03/19/2025 patient with underlying peripheral vascular disease, recent amputation, currently presenting with elevated troponins, likely type II elevation. No change in EF compared to previous. No active chest pain as well. At this time, best managed conservatively. There is also concern for issues with compliance in the long run and risk of any invasive procedure if necessary. Seen and examined 03/19/2025 at around 8 PM. 03/21/2025 Will continue with conservative management Continue with GDMT for cardiomyopathy ATTESTATION Case discussed with Dr. Lama Vitals/Labs Vital Signs Date Time Temp Pulse Resp B/P (MAP) Pulse Ox O2 Delivery O2 Flow Rate FiO2 03/21/25 15:30 98.1 71 17 110/60 94 Room Air 03/21/25 14:28 100 Laboratory Tests 03/21/25 05:15 Medications Current Medications Piperacillin Sod/ Tazobactam Sod 3.375 gm ONCE STAT IV Last administered on 03/19/25at 01:48; Start 03/19/25 at 00:50; Stop 03/19/25 at 00:56; Status DC Fentanyl Citrate 50 mcg ONCE ONCE IVP Last administered on 03/19/25at 01:48; Start 03/19/25 at 02:00; Stop 03/19/25 at 02:01; Status DC Acetaminophen 650 mg Q6H PRN PO; Start 03/19/25 at 05:00; Stop 04/18/25 at 04:59 Acetaminophen 650 mg Q4H PRN PO; Start 03/19/25 at 05:00; Stop 04/18/25 at 04:59 Ondansetron HCl 4 mg Q6H PRN IV Last administered on 03/20/25at 23:59; Start 03/19/25 at 05:00; Stop 04/18/25 at 04:59 Famotidine 10 mg Q48H PO Last administered on 03/21/25at 11:47; Start 03/19/25 at 05:00; Stop 04/18/25 at 04:59 Acetaminophen/ Hydrocodone Bitart 1 tab Q4H PRN PO Last administered on 03/20/25at 09:10; Start 03/19/25 at 05:00; Stop 03/24/25 at 04:59 Acetaminophen/ Hydrocodone Bitart 2 tab Q4H PRN PO Last administered on 03/20/25at 15:44; Start 03/19/25 at 05:00; Stop 03/24/25 at 04:59 Insulin Human Regular INSULIN SLIDING SCAL... ACHS SQ; Start 03/19/25 at 07:30; Stop 04/18/25 at 07:29 Dextrose 50 ml AD PRN IV; Start 03/19/25 at 05:00; Stop 04/18/25 at 04:59 Glucagon 1 mg AD PRN IM; Start 03/19/25 at 05:00; Stop 04/18/25 at 04:59 Cefepime HCl 1 gm Q24H IVPB Last administered on 03/21/25at 05:26; Start 03/19/25 at 05:00; Stop 03/29/25 at 04:59 Metronidazole/ Sodium Chloride 100 ml @ 100 mls/hr Q8H6 IVPB Last administered on 03/21/25at 16:00; Start 03/19/25 at 06:00; Stop 03/29/25 at 05:59 Heparin Sodium (Porcine) 5,000 unit Q12H SQ Last administered on 03/19/25at 05:31; Start 03/19/25 at 05:30; Stop 03/19/25 at 17:09; Status DC Epoetin John-epbx 10,000 unit ONCE ONCE SQ; Start 03/19/25 at 10:00; Stop 03/19/25 at 10:01; Status DC Sodium Chloride 250 ml @ 0 mls/hr AD IV; Start 03/19/25 at 11:00; Stop 04/18/25 at 10:59 Albumin Human 50 ml ONCE ONCE IV; Start 03/19/25 at 11:00; Stop 03/19/25 at 11:01; Status DC Sodium Chloride 1,000 ml @ 0 mls/hr ONCE IV; Start 03/19/25 at 11:00; Stop 04/18/25 at 10:59 Lidocaine HCl 0.5 ml AD IJ; Start 03/19/25 at 11:00; Stop 03/19/25 at 11:01; Status DC Lidocaine/ Prilocaine 1 appl ONCE TP; Start 03/19/25 at 11:00; Stop 03/19/25 at 11:01; Status DC Heparin Sodium (Porcine) 5,000 unit AD IRRIG; Start 03/19/25 at 11:00; Stop 03/20/25 at 14:36; Status DC Aspirin 81 mg DAILY PO Last administered on 03/21/25at 11:46; Start 03/20/25 at 09:00; Stop 04/19/25 at 08:59 Calcitriol 0.25 mcg DAILY PO Last administered on 03/21/25at 11:47; Start 03/20/25 at 09:00; Stop 04/19/25 at 08:59 Furosemide 40 mg DAILY PO Last administered on 03/21/25at 11:47; Start 03/20/25 at 09:00; Stop 04/19/25 at 08:59 Isosorbide Mononitrate 60 mg DAILY PO Last administered on 03/21/25at 11:46; Start 03/20/25 at 09:00; Stop 04/19/25 at 08:59 Sodium Bicarbonate 650 mg TID PO Last administered on 03/20/25at 09:03; Start 03/19/25 at 14:00; Stop 03/20/25 at 13:48; Status DC Hydralazine HCl 100 mg BID PO Last administered on 03/20/25at 09:04; Start 03/19/25 at 21:00; Stop 04/18/25 at 20:59 Metoprolol Succinate 100 mg DAILY PO Last administered on 03/20/25at 09:04; Start 03/20/25 at 09:00; Stop 04/19/25 at 08:59 Leptospermum Honey 1 appl DAILY TP Last administered on 03/21/25at 11:46; Start 03/20/25 at 16:00; Stop 04/19/25 at 15:59 Sodium Chloride 1,000 ml @ 0 mls/hr ONCE IV Last administered on 03/19/25at 20:29; Start 03/19/25 at 16:30; Stop 03/19/25 at 20:30; Status DC Heparin Sodium (Porcine) 10,000 unit AD SQ; Start 03/19/25 at 16:30; Stop 03/20/25 at 14:37; Status DC Heparin Sodium (Porcine) 5,000 unit Q12H SQ Last administered on 03/21/25at 12:01; Start 03/19/25 at 20:00; Stop 04/18/25 at 19:59 Vitamin B Complex/ Vit C/Folic Acid 1 cap DAILY PO Last administered on 03/21/25at 11:46; Start 03/21/25 at 09:00; Stop 04/20/25 at 08:59 Vancomycin HCl 1 each AD IV; Start 03/20/25 at 15:00; Stop 04/03/25 at 14:59 Heparin Sodium (Porcine) 10,000 unit AD IRRIG; Start 03/20/25 at 15:00; Stop 04/18/25 at 16:29 Vancomycin HCl 250 ml @ 125 mls/hr ONCE ONCE IV Last administered on 4/19/25at 17:52; Start 03/20/25 at 15:00; Stop 03/20/25 at 16:59; Status DC Vancomycin HCl 750 mg [id number][DIALYSIS] IVPB; Start 03/22/25 at 16:00; Stop 04/01/25 at 15:59 Metoclopramide HCl 10 mg ONCE ONCE IVP Last administered on 03/20/25at 22:32; Start 03/20/25 at 22:30; Stop 03/20/25 at 22:31; Status DC Albumin Human 100 ml @ 0 mls/hr AD ONCE IV Last administered on 03/20/25at 22:33; Start 03/20/25 at 22:30; Stop 03/20/25 at 22:31; Status DC Midodrine 10 mg TID PO Last administered on 03/21/25at 11:47; Start 03/20/25 at 22:30; Stop 04/19/25 at 22:29 Naloxone HCl 0.4 mg ONCE ONCE IVP Last administered on 03/21/25at 08:40; Start 03/21/25 at 09:00; Stop 03/21/25 at 09:01; Status DC Iohexol 35,000 mg STK-MED ONCE IV; Start 03/21/25 at 14:24; Stop 03/21/25 at 14:25; Status DC ANAY ANDERSON [employer] Mar 21, 2025 16:43
--- NOTE | 2025-03-21 21:58 | CONS ---
[facility] CONSULTATION NOTE Date Patient Seen: Mar 21, 2025 Time of Visit: 21:46 Supervising Physician: Dr. Edgar Myers Reason for Consultation: [ ] Primary Care Physician: [ ] Outpatient Specialists: [ ] Inpatient Consults: [ ] PROBLEM LIST: Severe peripheral vascular disease POA Acute hypoxic respiratory failure not POA Metabolic encephalopathy not POA. Infected left AKA stump POA Multiple necrotic wound ulcers to right lower extremity POA Elevated troponin due to demand ischemia POA Acute on chronic systolic CHF POA End-stage renal disease on hemodialysis POA Diabetes POA Acute anemia due to CKD POA Hypertension POA Sepsis without septic shock source infected wounds to bilateral lower extremities POA HPI: Patient was a 59-year-old female with a past medical history significant for CHF, ESRD on HD MWF, peripheral vascular disease, diabetes mellitus, as well as recent AKA Who was admitted for multiple wounds on the right lower extremity as well as the left AKA performed approximately two weeks ago with erythema and edema at the closure site. Patient has been treated on this admission for necrotic wounds on the right lower extremity with nursing staff reported that the patient was lethargic and nonresponsive to anything but sternal rub. [facility] team ordered ABGs which showed a normal CO2 level with the O2 level of 48.7. Patient was started on a non-rebreather mask, several imaging studies were ordered including head CT, chest CT, chest x-ray, and abdominal x-ray which are all unremarkable for any acute findings at this time. Patient received a dose of Narcan which appeared to reverse her symptoms, on my evaluation patient was AAO x3, she appears sleepy, mildly lethargic however alert and able to answer questions. We will hold opioid medication at this time, she is scheduled for dialysis tomorrow, and we will re-evaluate with ABGs in the morning. Patient's white count this morning was 9.8, hemoglobin at 7.4 down from yesterday at 8.6. The remainder of her blood work is unremarkable. We will continue to monitor the patient closely and use alternative means for analgesia. Plan Continue with non-rebreather mask Avoid all narcotic medications Pending hemodialysis tomorrow Neuro checks q.6 hours Midodrine 10 t.i.d. PAST MEDICAL HX: see above PAST SURGICAL HX: noncontributory SOCIAL HISTORY: No tobacco, ETOH, or illicit drug use Coded Allergies: No Known Drug Allergies (Unverified Allergy, Unknown, 03/18/25) REVIEW OF SYSTEMS: 12 point ROS reviewed with patient. Pertinent positives mentioned above. Otherwise negative. PHYSICAL EXAM: GENERAL: alert, weak, awake oriented x 3 HEENT: EOMI, Sclera non icteric, moist mucosa NECK: Supple, no JVD, trachea midline LUNGS: Clear breath sounds bilaterally. No wheezes HEART: Regular rate and rhythm. Normal S1 and S2, without murmurs ABD: Abdomen soft, nontender. Bowel sounds present EXT: No clubbing cyanosis or edema NEURO: Alert and oriented to person, follows commands Vital Signs (last 8hr) Date Time Temp Pulse Resp B/P (MAP) Pulse Ox O2 Delivery O2 Flow Rate FiO2 03/21/25 19:30 98.1 70 18 124/60 96 Nasal Cannula 2.0 03/21/25 18:47 60 22 N/Cannula Low lpm 3.0 32 03/21/25 15:30 98.1 71 17 110/60 94 Room Air 03/21/25 14:28 80 21 Non Rebreather 100 LABS: Hematology Labs: Test 03/21/25 05:15 03/20/25 04:36 Range/Units White Blood Count 9.8 4.8-10.8 K/uL Red Blood Count 2.48 L 4.00-5.50 MIL/uL Hemoglobin 7.4 L 12.0-16.0 g/dL Hematocrit 24.0 L 36-48 % Mean Corpuscular Volume 96.8 79-99 fL Mean Corpuscular Hemoglobin 29.8 27.0-33.0 pg Mean Corpuscular Hemoglobin Concent 30.8 L 32.0-36.0 g/dL Red Cell Distribution Width 18.0 H 11.0-15.5 % Platelet Count 228 # 130-400 K/uL Mean Platelet Volume 11.6 H 7.5-10.5 fL Segmented Neutrophils % 78 H 40-70 % Band Neutrophils % 1 0-2 % Lymphocytes % (Manual) 11 L 22-44 % Monocytes % (Manual) 9 2-9 % Eosinophils % (Manual) 1 1-6 % Nucleated Red Blood Cells 0.0 0.0-0.19 % Differential Comment MANUAL DIFFERENTIAL White Cell Morphology Comment Platelet Morphology Comment ADEQUATE Red Blood Cell Morphology See comments Immature Granulocyte % (Auto) 0.7 0-1 % Neutrophils (%) (Auto) 66.6 40.0-77.0 % Lymphocytes (%) (Auto) 14.5 L 21.0-51.0 % Monocytes (%) (Auto) 12.2 3.0-13.0 % Eosinophils (%) (Auto) 5.5 0.0-8.0 % Basophils (%) (Auto) 0.5 0.0-5.0 % Neutrophils # (Auto) 5.1 1.8-7.7 K/uL Lymphocytes # (Auto) 1.1 1.0-4.8 K/uL Monocytes # (Auto) 0.9 0.1-1.0 K/uL Eosinophils # (Auto) 0.42 0.00-0.70 K/uL Basophils # (Auto) 0.04 0.00-0.20 K/uL Absolute Immature Granulocyte (auto 0.05 0-1 K/uL Reticulocyte Count (auto) 4.53050 H 0.42-2.23 % Immature Reticulocyte Fraction 23.30 H 0.18-0.48 % Chemistry Labs: Test 03/21/25 19:41 03/21/25 08:50 03/21/25 05:15 03/20/25 04:36 Range/Units Whole Blood Glucose 72 # 70-110 MG/DL Ammonia < 10 L 11-32 umol/L Sodium Level 140 136-145 mmol/L Potassium Level 4.0 3.5-5.1 mmol/L Chloride Level 109 101-111 mmol/L Carbon Dioxide Level 30 21-32 mmol/L Blood Urea Nitrogen 30 H 7-18 mg/dL Creatinine 4.1 H 0.5-1.0 mg/dL Glomerular Filtration Rate Calc 12 >90 mL/min Random Glucose 85 70-105 mg/dL Total Calcium 7.2 L 8.5-10.1 mg/dL Phosphorus Level 5.1 H 2.5-4.9 mg/dL Total Bilirubin 0.6 0.2-1.0 mg/dL Aspartate Amino Transf (AST/SGOT) 13 10-37 U/L Alanine Aminotransferase (ALT/SGPT) 7 L 12-78 U/L Alkaline Phosphatase 97 50-136 U/L C-Reactive Protein, Quantitative 86.90 H 0.5-3.0 mg/L Total Protein 5.8 L 6.0-8.3 g/dL Albumin 1.8 L 3.5-5.0 g/dL Magnesium Level 1.70 L 1.80-2.40 mg/dL Iron Level 22 L 50-170 mcg/dL Total Iron Binding Capacity 87 L 250-450 mcg/dL Percent Iron Saturation 25.2 22-44 % Ferritin 986 H 15-150 ng/mL Vitamin B12 Level 1209 H 193-986 pg/mL Folic Acid (LAB) 3.50 2-20 ng/mL DIAGNOSTICS / RADIOLOGY RESULTS: [ ] PLAN NEURO: Minimize central acting medications as possible. Maintain fall precautions, adequate lighting during the day PULMONARY: Supplemental 02 as needed. Maintain aspiration precautions at all times CARDIOVASCULAR: Follow hemodynamics. Vital signs per facility protocol GI & NUTRITION: Continue with nutritional support. Continue stool softeners and laxatives as needed. KIDNEYS & ELECTROLYTES: Strict monitoring of intake, output and overall fluid balance. Avoid nephrotoxic medications to the extent possible. Medications to be dosed according to renal function. Monitor electrolytes and replace as needed ENDOCRINE: Maintain blood glucose between 100-180 at all times. Hypoglycemia protocol in place INFECTIOUS DISEASE: Trend temperature, WBC and procalcitonin level Follow cultures, deescalate antibiotics as soon as possible. Panculture if new onset fever ONCOLOGY/HEMATOLOGY/COAGULATION: Monitor for s/s of bleeding Monitor hemoglobin, coagulation studies as needed SKIN: Pressure ulcer prevention per facility protocol Specialty mattress ORTHO/REHAB: Continue PT/OT Prophylaxis: Continue GI and DVT prophylaxis Code Status: Full Resuscitation Disposition: TBD Other: Total patient care time exceeds 35 minutes excluding all procedures. CONNIE SINGER Mar 21, 2025 21:58
[2025-03-22] VITALS (24 sets, daily range): BP systolic 86–136; BP diastolic 36–96; PULSE 51–86; RESP 16–21; TEMP 97.1–99.4; O2SAT 96–100
[2025-03-22 03:47] LABS: BASOPHILS # (AUTO) 0.11 K/uL (0.00-0.20); BASOPHILS % (AUTO) 1.1 % (0.0-5.0); EOSINOPHILS # (AUTO) 0.39 K/uL (0.00-0.70); EOSINOPHILS % (AUTO) 3.9 % (0.0-8.0); IMMATURE GRANULOCYTE ABSOLUTE 0.06 K/uL (0-1); LYMPHOCYTES # (AUTO) 1.8 K/uL (1.0-4.8); LYMPHOCYTES % (AUTO) 17.7 % (21.0-51.0); MEAN CORPUSCULAR HEMOGLOBIN 30.5 pg (27.0-33.0); MEAN CORPUSCULAR HGB CONC 31.2 g/dL (32.0-36.0); MEAN CORPUSCULAR VOLUME 97.7 fL (79-99); MONOCYTES # (AUTO) 1.2 K/uL (0.1-1.0); MONOCYTES % (AUTO) 11.6 % (3.0-13.0); NEUTROPHILS # (AUTO) 6.6 K/uL (1.8-7.7); NEUTROPHILS % (AUTO) 65.1 % (40.0-77.0); PLATELET COUNT (AUTO) 261 K/uL (130-400); RED BLOOD CELL COUNT(AUTO) 2.66 MIL/uL (4.00-5.50); RED CELL DISTRIBUTION WIDTH 18.2 % (11.0-15.5); WHITE BLOOD COUNT (AUTO) 10.1 K/uL (4.8-10.8)
[2025-03-22 04:03] LABS: ALBUMIN 1.6 g/dL (3.5-5.0); BILIRUBIN,TOTAL 0.5 mg/dL (0.2-1.0); CREATININE 4.7 mg/dL (0.5-1.0); PHOSPHORUS 5.8 mg/dL (2.5-4.9); POTASSIUM 4.2 mmol/L (3.5-5.1); TOTAL PROTEIN, SERUM 5.6 g/dL (6.0-8.3)
[2025-03-22 05:00] LABS: ABG BASE EXCESS 1.7 mmol/L (-2.0-3.0); ABG HCO3 25.6 mmol/L (21.0-28.0); ABG PCO2 38 mmHg (32-45); ABG PH 7.445 (7.350-7.450); VENT MODE, BG 3LNC (ROOM AIR)
[2025-03-22 05:04] LABS: PO2, ARTERIAL BG 48.5 mmHg (83.0-108.0)
--- NOTE | 2025-03-22 08:56 | PN ---
DIALYSIS NOTE SUBJECTIVE: The patient was seen and evaluated on hemodialysis, prescription noted. REVIEW OF SYSTEMS: VITAL SIGNS: Blood pressure is 134/68. CARDIOVASCULAR: Regular. LUNGS: Coarse. IMPRESSION: ESRD. PLAN: The patient will continue with maximum ultrafiltration as blood pressure allows. The patient remains on the antibiotics as well as local wound care. Once the patient is discharged, she will follow up at the dialysis unit. TID: [id number] RECEIPT: [id number]
--- NOTE | 2025-03-22 12:23 | PN ---
[facility] PROGRESS NOTE Date of Service: Mar 22, 2025 Time of Service: 12:14 SUBJECTIVE: [ 59-year-old female not a good historian, with past medical history of CHF, hypertension , severe peripheral vascular disease, diabetes and end-stage renal disease on hemodialysis Saturday who was brought by EMS to the ED for complaints of pain to buttocks and bilateral lower extremities and fever.Patient reports she was recently admitted at [facility] for fluid overload and was discharged 2 days ago .Patient states she has a left AKA that was done 2 weeks ago and looks infected and she also has a multiple wound ulcers with some necrosis to right lower extremity and both extremities are swollen,with erythema and warm to to touch .Patient has no records here for any admissions. Upon arrival to the ED vital signs temperature 101.5, heart rate 92 blood pressure 130/71 saturation 98% on room air Seen and examined patient int he ED awake,alert and coherent and irritable.Patient denies chest pain,palpitation,cough and shortness of breath. Latest vital signs temperature 99.1, heart rate 95, blood pressure 114/60 saturation 98% on room air. Labs: WBC 11 , hemoglobin 9, hematocrit 29 platelet count 199. Chloride 99, BUN 32, creatinine 4.5 GFR 11, calcium 7.4 troponin 400 BNP 5000 chest x-ray, arterial ultrasound and venous Doppler result are still pending at this time. ECG unavailable at this time. While in the ER patient received Zosyn IV and fentanyl 50 mcg IV. We will admit patient for further medical management. 03/20/2025. Patient seen and examined denies any new complaints. 2D echo report discussed with the patient patient has low EF she is aware of that. Patient was seen by Cardiology Dr. Hodge no interventions planned. CT scan of the left below-knee amputation stump was done did reveal soft tissue edema no abscess noted. Pending ID consult. 03/21/2025. Patient was seen and examined. I received a call from nursing that patient was only responding to sternal rub and not waking up, immediately ABG was ordered which showed hypoxia no hypercapnia, injection of Narcan was given with some improvement in her mental status, CT head stat was ordered. Chest x- ray was ordered. Patient was transferred to PCU. Critical care consult was placed. Patient mental status improved she is alert oriented time three at this point. 03/22/2025. Patient was seen and examined along with RN. No new complaints. Patient is alert oriented x3. we are holding any narcotics. Critical Care on board. Continue on IV antibiotics awaiting formal consult from ID. REVIEW OF SYSTEMS CONSTITUTIONAL: Denies fevers, chills, or night sweats. No unintentional weight loss reported. NEUROLOGICAL: Denies headache, amaurosis fugax, motor weakness, sensory deficit, vertigo/spinning sensation, gait abnormalities, or tremors. ENT: No hearing loss, otalgia, otorrhea, rhinitis, rhinorrhea, hoarseness, or sore throat. CARDIOVASCULAR: Denies any exertional angina, dyspnea on exertion, orthopnea, paroxysmal nocturnal dyspnea, palpitations, life-threatening arrhythmias, claudication. PULMONARY: Denies any shortness of breath, cough, phlegm/sputum, hemoptysis, pleuritic chest pain. SLEEP: Denies morning headaches, daytime somnolence or napping. Denies difficu lty falling asleep, staying asleep, waking from sleep. Denies knowledge of snoring. GASTROINTESTINAL: Denies any type of dysphagia to either liquids or solids. Denies nausea, vomiting, pyrosis, early satiety, abdominal pain, diarrhea, constipation, or changes in stool consistency or caliber. Denies coffee-ground emesis, hematemesis, hematochezia, or melanotic stools. GENITOURINARY: Denies frequency, urgency, nocturia, hematuria or incontinence (Storage/Irritative symptoms.) Low urinary stream, straining to void, urinary intermittency or hesitancy, splitting of the voiding stream, terminal dribbling. ENDOCRINOLOGIC: Denies polyuria, polydipsia, polyphagia or heat/cold intol erances. HEMATOLOGIC: Denies thrombophilia/previous clots, or coagulopathy/bleeding disorders. ONCOLOGIC: Denies personal history of malignancy. DERMATOLOGIC: Denies rashes or pruritus. PSYCHIATRIC: Denies any suicidal or homicidal ideation. Denies hallucinations. PHYSICAL EXAM GENERAL APPEARANCE: The patient is awake, alert, and oriented, in no acute cardiopulmonary distress. NEUROLOGICAL: Cranial nerves II-XII grossly intact. Motor is 5/5 in bilateral upper and lower extremities proximal to distal. No sensory deficits. HEENT: Face is symmetric. Pupils are equal and reactive. Extraocular movements are intact. NECK: Supple. No JVD. No thyromegaly. No submental, submandibular, pre- /postauricular, occipital or supraclavicular lymphadenopathy. CHEST: Normal chest expansion. No Telemetry. LUNGS: Absence of any rales, rhonchi or any wheezing. CARDIOVASCULAR: Regular. S1 and S2 normal. No appreciable rubs, murmurs or gallops. ABDOMEN: Soft, nontender, and nondistended. There is no rebound, voluntary guarding, or rigidity. : Deferred. No Ta. EXTREMITIES: Left AKA with emily intact. Swollen right lower extremity SKIN: Infected left stump and right lower extremity multiple necrotic wound ulcers Vital Signs (last 8hr) Date Time Temp Pulse Resp B/P (MAP) Pulse Ox O2 Delivery O2 Flow Rate FiO2 03/22/25 11:15 68 16 88/46 Nasal Cannula 5.0 03/22/25 11:00 97.2 68 17 108/96 97 Nasal Cannula 5.0 03/22/25 11:00 53 16 86/46 Nasal Cannula 5.0 03/22/25 10:45 53 16 99/47 Nasal Cannula 5.0 03/22/25 10:30 60 16 97/63 Nasal Cannula 5.0 03/22/25 10:15 51 16 111/52 Nasal Cannula 5.0 03/22/25 10:00 54 16 124/51 Nasal Cannula 5.0 03/22/25 09:45 56 16 128/55 Nasal Cannula 5.0 03/22/25 09:30 60 16 134/54 Nasal Cannula 5.0 03/22/25 09:15 83 16 114/47 Nasal Cannula 5.0 03/22/25 09:00 62 16 118/42 Nasal Cannula 5.0 03/22/25 08:45 64 16 116/36 Nasal Cannula 5.0 03/22/25 08:30 65 16 101/38 Nasal Cannula 5.0 03/22/25 08:25 97.3 72 16 116/78 Nasal Cannula 5.0 03/22/25 08:02 97.3 65 16 124/95 Nasal Cannula 5.0 03/22/25 07:00 97.3 67 17 134/68 100 Nasal Cannula 2.0 03/22/25 06:19 86 18 N/Cannula Oximizer Hi LPM 5.0 40 03/22/25 05:35 21 Non Rebreather 100 LABS: Laboratory: Test 03/22/25 11:19 03/22/25 04:59 03/22/25 03:29 03/21/25 08:50 Range/Units Whole Blood Glucose 101 70-110 MG/DL Blood Gas Specimen Type Arterial Arterial Blood pH 7.445 7.350-7.450 Arterial Blood Partial Pressure CO2 38 32-45 mmHg Arterial Blood HCO3 25.6 21.0-28.0 mmol/L Arterial Blood Oxygen Saturation 86.0 L 94.0-98.0 % Arterial Blood Base Excess 1.7 -2.0-3.0 mmol/L Blood Gas Temperature 37.0 35.5-37.0 CELSIUS Blood Gas Flow-by 3.00 0.00-15.00 L/min Blood Gas Vent Mode 3LNC ROOM AIR FiO2 32.0 % Blood Gas Specimen Comment JOSE RN, RB White Blood Count 10.1 4.8-10.8 K/uL Red Blood Count 2.66 L 4.00-5.50 MIL/uL Hemoglobin 8.1 L 12.0-16.0 g/dL Hematocrit 26.0 L 36-48 % Mean Corpuscular Volume 97.7 79-99 fL Mean Corpuscular Hemoglobin 30.5 27.0-33.0 pg Mean Corpuscular Hemoglobin Concent 31.2 L 32.0-36.0 g/dL Red Cell Distribution Width 18.2 H 11.0-15.5 % Platelet Count 261 130-400 K/uL Mean Platelet Volume 10.8 H 7.5-10.5 fL Immature Granulocyte % (Auto) 0.6 0-1 % Neutrophils (%) (Auto) 65.1 40.0-77.0 % Lymphocytes (%) (Auto) 17.7 L 21.0-51.0 % Monocytes (%) (Auto) 11.6 3.0-13.0 % Eosinophils (%) (Auto) 3.9 0.0-8.0 % Basophils (%) (Auto) 1.1 0.0-5.0 % Neutrophils # (Auto) 6.6 1.8-7.7 K/uL Lymphocytes # (Auto) 1.8 1.0-4.8 K/uL Monocytes # (Auto) 1.2 H 0.1-1.0 K/uL Eosinophils # (Auto) 0.39 0.00-0.70 K/uL Basophils # (Auto) 0.11 0.00-0.20 K/uL Absolute Immature Granulocyte (auto 0.06 0-1 K/uL Nucleated Red Blood Cells 0.0 0.0-0.19 % Sodium Level 136 136-145 mmol/L Potassium Level 4.2 3.5-5.1 mmol/L Chloride Level 98 L 101-111 mmol/L Carbon Dioxide Level 28 21-32 mmol/L Blood Urea Nitrogen 34 H 7-18 mg/dL Creatinine 4.7 H 0.5-1.0 mg/dL Glomerular Filtration Rate Calc 10 >90 mL/min Random Glucose 78 70-105 mg/dL Total Calcium 7.1 L 8.5-10.1 mg/dL Phosphorus Level 5.8 H 2.5-4.9 mg/dL Total Bilirubin 0.5 0.2-1.0 mg/dL Aspartate Amino Transf (AST/SGOT) 15 10-37 U/L Alanine Aminotransferase (ALT/SGPT) 6 L 12-78 U/L Alkaline Phosphatase 97 50-136 U/L C-Reactive Protein, Quantitative 100.00 H 0.5-3.0 mg/L Total Protein 5.6 L 6.0-8.3 g/dL Albumin 1.6 L 3.5-5.0 g/dL Procalcitonin 0.53 H 0.05-0.5 ng/mL Ammonia < 10 L 11-32 umol/L Test 03/21/25 05:15 Range/Units Segmented Neutrophils % 78 H 40-70 % Band Neutrophils % 1 0-2 % Lymphocytes % (Manual) 11 L 22-44 % Monocytes % (Manual) 9 2-9 % Eosinophils % (Manual) 1 1-6 % Differential Comment MANUAL DIFFERENTIAL White Cell Morphology Comment Platelet Morphology Comment ADEQUATE Red Blood Cell Morphology See comments Current Medications Medications (Trade) Dose Ordered Sig/Lori Route PRN Reason Start Time Stop Time Status Last Admin Dose Admin Acetaminophen (TYLenol 325MG TAB) 650 mg Q4H PRN PO MILD PAIN (1-3) 03/19/25 05:00 04/18/25 04:59 Acetaminophen (TYLenol 325MG TAB) 650 mg Q6H PRN PO TEMPERATURE GREATER THAN 101.5 03/19/25 05:00 04/18/25 04:59 Acetaminophen/ Hydrocodone Bitart (NORco 5/325MG) 1 tab Q4H PRN PO MODERATE PAIN (4-6) 03/19/25 05:00 03/24/25 04:59 03/20/25 09:10 1 TAB Acetaminophen/ Hydrocodone Bitart (NORco 5/325MG) 2 tab Q4H PRN PO SEVERE PAIN (7-10) 03/19/25 05:00 03/24/25 04:59 03/20/25 15:44 2 TAB Aspirin (Aspirin 81mg Ec Tab) 81 mg DAILY PO 03/20/25 09:00 04/19/25 08:59 03/21/25 11:46 81 MG Calcitriol (Rocaltrol 0.25mcg Cap) 0.25 mcg DAILY PO 03/20/25 09:00 04/19/25 08:59 03/21/25 11:47 0.25 MCG Cefepime HCl (MAXipime 1 GM vial) 1 gm Q24H IVPB 03/19/25 05:00 03/29/25 04:59 03/22/25 04:29 1 GM Dextrose (D50w) 50 ml AD PRN IV HYPOGLYCEMIA PROTOCOL 03/19/25 05:00 04/18/25 04:59 Famotidine (Pepcid 20mg Tab) 10 mg Q48H PO 03/19/25 05:00 04/18/25 04:59 03/21/25 11:47 10 MG Furosemide (LASix 40MG TAB) 40 mg DAILY PO 03/20/25 09:00 03/21/25 19:37 DC 03/21/25 11:47 40 MG Glucagon (Glucagon 1mg Kit) 1 mg AD PRN IM HYPOGLYCEMIA PROTOCOL 03/19/25 05:00 04/18/25 04:59 Heparin Sodium (Porcine) (HEParin 5,000 UNIT VIAL) 5,000 unit AD IRRIG 03/19/25 11:00 03/20/25 14:36 DC Heparin Sodium (Porcine) (HEParin 5,000 UNIT VIAL) 5,000 unit Q12H SQ 03/19/25 05:30 03/19/25 17:09 DC 03/19/25 05:31 5,000 UNIT Heparin Sodium (Porcine) (HEParin 5,000 UNIT VIAL) 5,000 unit Q12H SQ 03/19/25 20:00 04/18/25 19:59 03/21/25 20:09 5,000 UNIT Heparin Sodium (Porcine) (HEParin 5,000 UNIT VIAL) 10,000 unit AD IRRIG 03/20/25 15:00 04/18/25 16:29 Heparin Sodium (Porcine) (HEParin 5,000 UNIT VIAL) 10,000 unit AD SQ 03/19/25 16:30 03/20/25 14:37 DC Hydralazine HCl ([id number] TAB) 100 mg BID PO 03/19/25 21:00 03/21/25 19:37 DC 03/20/25 09:04 100 MG Insulin Human Regular (humuLIN R 100 UNIT/ML 3ML) INSULIN SLIDING SCAL... ACHS SQ 03/19/25 07:30 04/18/25 07:29 Isosorbide Mononitrate (Imdur 60mg Sr) 60 mg DAILY PO 03/20/25 09:00 04/19/25 08:59 03/21/25 11:46 60 MG Leptospermum Honey ([facility]) 1 appl DAILY TP 03/20/25 16:00 04/19/25 15:59 03/22/25 00:13 1 APPL Lidocaine HCl (Lidocaine HCl Mpf 1% 2ml Vial) 0.5 ml AD IJ 03/19/25 11:00 03/19/25 11:01 DC Lidocaine/ Prilocaine (Emla) 1 appl ONCE TP 03/19/25 11:00 03/19/25 11:01 DC Metoprolol Succinate (TopROL XL) 100 mg DAILY PO 03/20/25 09:00 04/19/25 08:59 Hold 03/20/25 09:04 100 MG Metronidazole/ Sodium Chloride 100 ml @ 100 mls/hr Q8H6 IVPB 03/19/25 06:00 03/29/25 05:59 03/22/25 05:22 100 MLS/HR Midodrine (PROAMatine 5 MG TABLET) 10 mg TID PO 03/20/25 22:30 04/19/25 22:29 03/21/25 20:04 10 MG Ondansetron HCl (zoFRAN 4MG INJ) 4 mg Q6H PRN IV NAUSEA/VOMITING 03/19/25 05:00 04/18/25 04:59 03/20/25 23:59 4 MG Piperacillin Sod/ Tazobactam Sod (Zosyn 3.375gm+NS 50ml) 3.375 gm ONCE STAT IV 03/19/25 00:50 03/19/25 00:56 DC 03/19/25 01:48 3.375 GM Sodium Bicarbonate (Sodium Bicarbonate) 650 mg TID PO 03/19/25 14:00 03/20/25 13:48 DC 03/20/25 09:03 650 MG Sodium Chloride 250 ml @ 0 mls/hr AD IV 03/19/25 11:00 04/18/25 10:59 Sodium Chloride 1,000 ml @ 0 mls/hr ONCE IV 03/19/25 11:00 04/18/25 10:59 03/22/25 09:03 333 MLS/HR Sodium Chloride 1,000 ml @ 0 mls/hr ONCE IV 03/19/25 16:30 03/19/25 20:30 DC 03/19/25 20:29 333 MLS/HR Vancomycin HCl (Vancomycin 750mg) 750 mg [id number][DIALYSIS] IVPB 03/22/25 16:00 04/01/25 15:59 Vancomycin HCl (Vancomycin Protocol) 1 each AD IV 03/20/25 15:00 04/03/25 14:59 Vitamin B Complex/ Vit C/Folic Acid (Nephrovite Tablet) 1 cap DAILY PO 03/21/25 09:00 04/20/25 08:59 03/21/25 11:46 1 CAP DIAGNOSTICS / RADIOLOGY: [ ] ASSESSMENT: Severe peripheral vascular disease POA Acute hypoxic respiratory failure not POA Metabolic encephalopathy not POA. Infected left AKA stump POA Multiple necrotic wound ulcers to right lower extremity POA Elevated troponin due to demand ischemia POA Acute on chronic systolic CHF POA End-stage renal disease on hemodialysis POA Diabetes POA Acute anemia due to CKD POA Hypertension POA Sepsis without septic shock source infected wounds to bilateral lower extremities POA resolved PLAN: Currently on nasal cannula. CTA of the chest did not reveal any pulmonary embolism. We will continue IV antibiotics for possible infiltrates. Patient has low transferrin saturation we will give IV Venofer with dialysis monitor hemoglobin Follow ID consult. Continue with IV cefepime Flagyl and vancomycin. Adjust according to cultures. CT scan of the leg did not show any drainable abscess. We will leave the decision to do MRI on ID. Appreciate cardiology consult. Continue on goal-directed medical therapy for systolic CHF. Patient not a candidate of Richar or Arb as blood pressure is on the lower side. We will leave that decision to Cardiology. Patient already on metoprolol succinate. We will need LifeVest on discharge if agreeable and if Cardiology agrees. GI DVT prophylaxis per protocol JANES COTE MD Mar 22, 2025 12:23
--- NOTE | 2025-03-22 15:28 | PN ---
[facility] PROGRESS NOTE Date Patient Seen: Mar 22, 2025 Time of Visit: 15:26 Supervising Physician: Primary Care Physician: self referred Outpatient Specialists: [ ] Inpatient Consults: [ ] PROBLEM LIST: Severe peripheral vascular disease POA Acute hypoxic respiratory failure not POA Metabolic encephalopathy not POA. Infected left AKA stump POA Multiple necrotic wound ulcers to right lower extremity POA Elevated troponin due to demand ischemia POA Acute on chronic systolic CHF POA End-stage renal disease on hemodialysis POA Diabetes POA Acute anemia due to CKD POA Hypertension POA Sepsis without septic shock source infected wounds to bilateral lower extremities POA INTERVAL HISTORY: 03/22/2025: At the time of my evaluation, the patient was lying in bed. She was undergoing hemodialysis with a goal of removing 2 L of fluid. The staff nurse made mentioned of a low blood pressure readings systolic in the 90s. The patient remains on nasal cannula at 5 L. laboratory data today showed no major changes of concern except for persisting elevated CRP level and procalcitonin level. Microbiology data is negative. No new imaging for review. No other complaint. REVIEW OF SYSTEMS: 12 point ROS reviewed with patient. Pertinent positives mentioned above. Ot herwise negative. PHYSICAL EXAM: GENERAL: alert, weak, awake oriented x 3 HEENT: EOMI, Sclera non icteric, moist mucosa NECK: Supple, no JVD, trachea midline LUNGS: Clear breath sounds bilaterally. No wheezes HEART: Regular rate and rhythm. Normal S1 and S2, without murmurs ABD: Abdomen soft, nontender. Bowel sounds present EXT: No clubbing cyanosis or edema NEURO: Alert and oriented to person, follows commands Vital Signs (last 8hr) Date Time Temp Pulse Resp B/P (MAP) Pulse Ox O2 Delivery O2 Flow Rate FiO2 03/22/25 11:41 97.2 55 16 108/42 Nasal Cannula 5.0 03/22/25 11:15 68 16 88/46 Nasal Cannula 5.0 03/22/25 11:00 97.2 68 17 108/96 97 Nasal Cannula 5.0 03/22/25 11:00 53 16 86/46 Nasal Cannula 5.0 03/22/25 10:45 53 16 99/47 Nasal Cannula 5.0 03/22/25 10:30 60 16 97/63 Nasal Cannula 5.0 03/22/25 10:15 51 16 111/52 Nasal Cannula 5.0 03/22/25 10:00 54 16 124/51 Nasal Cannula 5.0 03/22/25 09:45 56 16 128/55 Nasal Cannula 5.0 03/22/25 09:30 60 16 134/54 Nasal Cannula 5.0 03/22/25 09:15 83 16 114/47 Nasal Cannula 5.0 03/22/25 09:00 62 16 118/42 Nasal Cannula 5.0 03/22/25 08:45 64 16 116/36 Nasal Cannula 5.0 03/22/25 08:30 65 16 101/38 Nasal Cannula 5.0 03/22/25 08:25 97.3 72 16 116/78 Nasal Cannula 5.0 03/22/25 08:02 97.3 65 16 124/95 Nasal Cannula 5.0 03/22/25 08:00 97 Nasal Cannula* 5 40 LABS: Hematology Labs: Test 03/22/25 03:29 03/21/25 05:15 Range/Units White Blood Count 10.1 4.8-10.8 K/uL Red Blood Count 2.66 L 4.00-5.50 MIL/uL Hemoglobin 8.1 L 12.0-16.0 g/dL Hematocrit 26.0 L 36-48 % Mean Corpuscular Volume 97.7 79-99 fL Mean Corpuscular Hemoglobin 30.5 27.0-33.0 pg Mean Corpuscular Hemoglobin Concent 31.2 L 32.0-36.0 g/dL Red Cell Distribution Width 18.2 H 11.0-15.5 % Platelet Count 261 130-400 K/uL Mean Platelet Volume 10.8 H 7.5-10.5 fL Immature Granulocyte % (Auto) 0.6 0-1 % Neutrophils (%) (Auto) 65.1 40.0-77.0 % Lymphocytes (%) (Auto) 17.7 L 21.0-51.0 % Monocytes (%) (Auto) 11.6 3.0-13.0 % Eosinophils (%) (Auto) 3.9 0.0-8.0 % Basophils (%) (Auto) 1.1 0.0-5.0 % Neutrophils # (Auto) 6.6 1.8-7.7 K/uL Lymphocytes # (Auto) 1.8 1.0-4.8 K/uL Monocytes # (Auto) 1.2 H 0.1-1.0 K/uL Eosinophils # (Auto) 0.39 0.00-0.70 K/uL Basophils # (Auto) 0.11 0.00-0.20 K/uL Absolute Immature Granulocyte (auto 0.06 0-1 K/uL Nucleated Red Blood Cells 0.0 0.0-0.19 % Segmented Neutrophils % 78 H 40-70 % Band Neutrophils % 1 0-2 % Lymphocytes % (Manual) 11 L 22-44 % Monocytes % (Manual) 9 2-9 % Eosinophils % (Manual) 1 1-6 % Differential Comment MANUAL DIFFERENTIAL White Cell Morphology Comment Platelet Morphology Comment ADEQUATE Red Blood Cell Morphology See comments Chemistry Labs: Test 03/22/25 11:19 03/22/25 03:29 03/21/25 08:50 Range/Units Whole Blood Glucose 101 70-110 MG/DL Sodium Level 136 136-145 mmol/L Potassium Level 4.2 3.5-5.1 mmol/L Chloride Level 98 L 101-111 mmol/L Carbon Dioxide Level 28 21-32 mmol/L Blood Urea Nitrogen 34 H 7-18 mg/dL Creatinine 4.7 H 0.5-1.0 mg/dL Glomerular Filtration Rate Calc 10 >90 mL/min Random Glucose 78 70-105 mg/dL Total Calcium 7.1 L 8.5-10.1 mg/dL Phosphorus Level 5.8 H 2.5-4.9 mg/dL Total Bilirubin 0.5 0.2-1.0 mg/dL Aspartate Amino Transf (AST/SGOT) 15 10-37 U/L Alanine Aminotransferase (ALT/SGPT) 6 L 12-78 U/L Alkaline Phosphatase 97 50-136 U/L C-Reactive Protein, Quantitative 100.00 H 0.5-3.0 mg/L Total Protein 5.6 L 6.0-8.3 g/dL Albumin 1.6 L 3.5-5.0 g/dL Procalcitonin 0.53 H 0.05-0.5 ng/mL Ammonia < 10 L 11-32 umol/L DIAGNOSTICS / RADIOLOGY RESULTS: [ ] PLAN 03/22/2025: For now, we are going to continue current management for the patient. Respiratory rojas, the patient is doing well on nasal cannula at 5 L. We will continue to monitor for now. The low blood pressure trend was related to her current hemodialysis session with a goal of removing 2 L. the patient continues on midodrine 10 mg t.i.d. I will recommend to give 15 mg prior to her dialysis. We will follow the recommendation of the treating specialist. We will monitor the patient's progress and response to management. We will continue to provide general supportive care, GI and DVT prophylaxis. Further orders per attending MD and hospital course. NEURO: Minimize central acting medications as possible. Maintain fall precautions, adequate lighting during the day PULMONARY: Supplemental 02 as needed. Maintain aspiration precautions at all times CARDIOVASCULAR: Follow hemodynamics. Vital signs per facility protocol GI & NUTRITION: Continue with nutritional support. Continue stool softeners and laxatives as needed. KIDNEYS & ELECTROLYTES: Strict monitoring of intake, output and overall fluid balance. Avoid nephrotoxic medications to the extent possible. Medications to be dosed according to renal function. Monitor electrolytes and replace as needed ENDOCRINE: Maintain blood glucose between 100-180 at all times. Hypoglycemia protocol in place INFECTIOUS DISEASE: Trend temperature, WBC and procalcitonin level Follow cultures, deescalate antibiotics as soon as possible. Panculture if new onset fever ONCOLOGY/HEMATOLOGY/COAGULATION: Monitor for s/s of bleeding Monitor hemoglobin, coagulation studies as needed SKIN: Pressure ulcer prevention per facility protocol Specialty mattress ORTHO/REHAB: Continue PT/OT Prophylaxis: Continue GI and DVT prophylaxis Code Status: Full Resuscitation Disposition: TBD Other: Total patient care time exceeds 35 minutes excluding all procedures. VIGNESH SMITH NP Mar 22, 2025 15:28
--- NOTE | 2025-03-22 16:45 | NUR ---
Nutrition consult per low albumin Reviewed labs, notes, and medications. Pt with ESRD on HD M/W/F, w/ lethargy, renal diet, IV abx, elevated BUN 34, elevated Cr 4.7, Ca 7.1(L), phos 5.8(L), elevated b12 per chart review. inconsistent wts since admin. Wt via bed scale, 50%PO intake, last BM 03/22/25, mild fat and muscle loss, coccyx ulcer, 2L output HD 03/22/25 per nursing. Pt with non-severe PCM, Supplement thiamin 100 mg/day for 5-7 days + MVI QD for at least 10 days. Low albumin may be due to inflammation. Recommendations -Provide renal diet + nepro BID w/ lunch and dinner -Fluid restriction per MD -Monitor PO intake -Encourage PO intake as able -If poor PO intake continues consider appetite stimulant -Monitor BM -If no BM >3 days consider stool softener -Monitor electrolytes -Replenish electrolytes per protocol -Monitor wts -Reweigh as able -Order Vit D labs to rule out deficiencies -Provide NEPHRO-BEATRIZ QD -consider vit.C 500 mg BID, zinc 220 mg QD to aid in wound healing -Recommend Pt to follow up with PCP -Monitor goals of care RD to follow + available for consult per protocol Addendum: 03/22/25 at [address] Amended: Links added.
[2025-03-22] MEDS: VANCOMYCIN 750MG VIAL IVPB SCH (18:20)
[2025-03-23] VITALS (9 sets, daily range): BP systolic 119–158; BP diastolic 54–65; PULSE 68–75; RESP 16–20; TEMP 97.6–98.6; O2SAT 95–100
[2025-03-23 04:58] LABS: BASOPHILS # (AUTO) 0.13 K/uL (0.00-0.20); EOSINOPHILS # (AUTO) 0.49 K/uL (0.00-0.70); EOSINOPHILS % (AUTO) 3.8 % (0.0-8.0); HEMATOCRIT 29.2 % (36-48); IMMATURE GRANULOCYTE ABSOLUTE 0.07 K/uL (0-1); LYMPHOCYTES # (AUTO) 2.5 K/uL (1.0-4.8); LYMPHOCYTES % (AUTO) 19.3 % (21.0-51.0); MEAN CORPUSCULAR HEMOGLOBIN 29.8 pg (27.0-33.0); MEAN CORPUSCULAR HGB CONC 30.8 g/dL (32.0-36.0); MEAN CORPUSCULAR VOLUME 96.7 fL (79-99); MONOCYTES # (AUTO) 1.1 K/uL (0.1-1.0); MONOCYTES % (AUTO) 8.6 % (3.0-13.0); NEUTROPHILS # (AUTO) 8.6 K/uL (1.8-7.7); NEUTROPHILS % (AUTO) 66.8 % (40.0-77.0); PLATELET COUNT (AUTO) 300 K/uL (130-400); RED BLOOD CELL COUNT(AUTO) 3.02 MIL/uL (4.00-5.50); RED CELL DISTRIBUTION WIDTH 17.8 % (11.0-15.5); WHITE BLOOD COUNT (AUTO) 12.9 K/uL (4.8-10.8)
[2025-03-23 05:22] LABS: CREATININE 3.5 mg/dL (0.5-1.0); POTASSIUM 3.7 mmol/L (3.5-5.1); THYROID STIMULATING HORMONE 5.02 uIU/mL (0.36-3.74)
--- NOTE | 2025-03-23 08:44 | PN ---
FOLLOWUP PROGRESS NOTE SUBJECTIVE: A 59-year-old female with history of diabetes mellitus and hypertension. She has a history of end-stage renal disease, on dialysis 3 times per week. She initially presented with nonhealing wound to the foot. The patient had recent AKA. The patient has a history of noncompliance with her general medical care, including her dialysis sessions. She remains on the antibiotics and the patient is being seen as a followup visit for all of the above. REVIEW OF SYSTEMS: GENERAL: She is feeling weak and tired. HEENT: No change in vision. No change in hearing. No nasal discharge. No sore throat. CARDIOVASCULAR: There is no current chest pains or palpitations. PULMONARY: She denies any shortness of breath. GASTROINTESTINAL: She is tolerating a diet. MUSCULOSKELETAL: As described above. PHYSICAL EXAMINATION: VITAL SIGNS: Blood pressure is 120/65, pulse 60. She is afebrile. GENERAL: She is a chronically ill, much older than appearing female, lying in bed on the medical floor. HEENT: Head is atraumatic. Pupils are equal and roving to light. Oropharynx is without exudate. Nares clear. NECK: There is no JVP. There is no thyromegaly, no mass. CARDIOVASCULAR: Regular. There is no S3, S4 gallop. LUNGS: Coarse with equal thoracic movement. ABDOMEN: Soft, nondistended, and nontender. EXTREMITIES: No clubbing or cyanosis. The wounds are all noted. LABORATORY DATA: Hemoglobin 9, hematocrit 29, white blood cell count is 12,000. Sodium 135, potassium 3.7. Phosphorus 5.8. IMPRESSION: * Vascular disease, nonhealing wounds. * Diabetes mellitus. * Hypertension. * Electrolyte abnormalities. PLAN: The patient remains on the broad-spectrum IV antibiotics. The patient also continues with the local wound care. The patient is being seen by case management in front of this physician. The patient can continue Epogen for the anemia. She will be placed back on her phosphate binders. We will continue to follow closely. I have discussed with the patient. Once she is discharged, she is highly encouraged to follow up at the dialysis unit. TID: [id number] RECEIPT: [id number]
[2025-03-23] MEDS: sevELAMer HCL 800 MG TABLET PO SCH (12:00)
--- NOTE | 2025-03-23 12:35 | NUR ---
[facility] Follow-up: Patient re-assessed by wound healing team. See wound assessment. Assessment and recommendations provided to primary nurse. Education provided. Wound care done. Addendum: 03/24/25 at 1554 by AV FORRESTER RN RN/ Amended: Links added.
--- NOTE | 2025-03-23 15:31 | PN ---
[facility] PROGRESS NOTE Date of Service: Mar 23, 2025 Time of Service: 15:17 SUBJECTIVE: [ 59-year-old female not a good historian, with past medical history of CHF, hypertension , severe peripheral vascular disease, diabetes and end-stage renal disease on hemodialysis Saturday who was brought by EMS to the ED for complaints of pain to buttocks and bilateral lower extremities and fever.Patient reports she was recently admitted at [facility] for fluid overload and was discharged 2 days ago .Patient states she has a left AKA that was done 2 weeks ago and looks infected and she also has a multiple wound ulcers with some necrosis to right lower extremity and both extremities are swollen,with erythema and warm to to touch .Patient has no records here for any admissions. Upon arrival to the ED vital signs temperature 101.5, heart rate 92 blood pressure 130/71 saturation 98% on room air Seen and examined patient int he ED awake,alert and coherent and irritable.Patient denies chest pain,palpitation,cough and shortness of breath. Latest vital signs temperature 99.1, heart rate 95, blood pressure 114/60 saturation 98% on room air. Labs: WBC 11 , hemoglobin 9, hematocrit 29 platelet count 199. Chloride 99, BUN 32, creatinine 4.5 GFR 11, calcium 7.4 troponin 400 BNP 5000 chest x-ray, arterial ultrasound and venous Doppler result are still pending at this time. ECG unavailable at this time. While in the ER patient received Zosyn IV and fentanyl 50 mcg IV. We will admit patient for further medical management. 03/20/2025. Patient seen and examined denies any new complaints. 2D echo report discussed with the patient patient has low EF she is aware of that. Patient was seen by Cardiology Dr. Hodge no interventions planned. CT scan of the left below-knee amputation stump was done did reveal soft tissue edema no abscess noted. Pending ID consult. 03/21/2025. Patient was seen and examined. I received a call from nursing that patient was only responding to sternal rub and not waking up, immediately ABG was ordered which showed hypoxia no hypercapnia, injection of Narcan was given with some improvement in her mental status, CT head stat was ordered. Chest x- ray was ordered. Patient was transferred to PCU. Critical care consult was placed. Patient mental status improved she is alert oriented time three at this point. 03/22/2025. Patient was seen and examined along with RN. No new complaints. Patient is alert oriented x3. we are holding any narcotics. Critical Care on board. Continue on IV antibiotics awaiting formal consult from ID. 03/23-patient was seen and examined at the bedside. No new complaints noted. Patient is held on narcotics as she was hypoxic. Now doing stable alert and oriented. ID recommends to continue the same medications of vancomycin, cefepime and Flagyl for 10 days. Critical Care on board. Dr. Reno nephrology as added sevelamer for her increased phosphorus of 7.2 and epoetin alpha, Once she is discharged she is highly encouraged to follow up at the dialysis unit. REVIEW OF SYSTEMS CONSTITUTIONAL: Denies fevers, chills, or night sweats. No unintentional weight loss reported. NEUROLOGICAL: Denies headache, amaurosis fugax, motor weakness, sensory deficit, vertigo/spinning sensation, gait abnormalities, or tremors. ENT: No hearing loss, otalgia, otorrhea, rhinitis, rhinorrhea, hoarseness, or sore throat. CARDIOVASCULAR: Denies any exertional angina, dyspnea on exertion, orthopnea, paroxysmal nocturnal dyspnea, palpitations, life-threatening arrhythmias, claudication. PULMONARY: Denies any shortness of breath, cough, phlegm/sputum, hemoptysis, pleuritic chest pain. SLEEP: Denies morning headaches, daytime somnolence or napping. Denies difficulty falling asleep, staying asleep, waking from sleep. Denies knowledge of snoring. GASTROINTESTINAL: Denies any type of dysphagia to either liquids or solids. Denies nausea, vomiting, pyrosis, early satiety, abdominal pain, diarrhea, constipation, or changes in stool consistency or caliber. Denies coffee-ground emesis, hematemesis, hematochezia, or melanotic stools. GENITOURINARY: Denies frequency, urgency, nocturia, hematuria or incontinence (Storage/Irritative symptoms.) Low urinary stream, straining to void, urinary intermittency or hesitancy, splitting of the voiding stream, terminal dribbling. ENDOCRINOLOGIC: Denies polyuria, polydipsia, polyphagia or heat/cold intolerances. HEMATOLOGIC: Denies thrombophilia/previous clots, or coagulopathy/bleeding disorders. ONCOLOGIC: Denies personal history of malignancy. DERMATOLOGIC: Denies rashes or pruritus. PSYCHIATRIC: Denies any suicidal or homicidal ideation. Denies hallucinations. PHYSICAL EXAM GENERAL APPEARANCE: The patient is awake, alert, and oriented, in no acute cardiopulmonary distress. NEUROLOGICAL: Cranial nerves II-XII grossly intact. Motor is 5/5 in bilateral upper and lower extremities proximal to distal. No sensory deficits. HEENT: Face is symmetric. Pupils are equal and reactive. Extraocular movements are intact. NECK: Supple. No JVD. No thyromegaly. No submental, submandibular, pre- /postauricular, occipital or supraclavicular lymphadenopathy. CHEST: Normal chest expansion. No Telemetry. LUNGS: Absence of any rales, rhonchi or any wheezing. CARDIOVASCULAR: Regular. S1 and S2 normal. No appreciable rubs, murmurs or gallops. ABDOMEN: Soft, nontender, and nondistended. There is no rebound, voluntary guarding, or rigidity. : Deferred. No Ta. EXTREMITIES: Left AKA with emily intact. Swollen right lower extremity SKIN: Infected left stump and right lower extremity multiple necrotic wound ulcers Vital Signs (last 8hr) Date Time Temp Pulse Resp B/P (MAP) Pulse Ox O2 Delivery O2 Flow Rate FiO2 03/23/25 12:00 97.5 75 19 122/56 93 Nasal Cannula 5.0 03/23/25 08:00 98.1 69 19 122/58 94 Nasal Cannula 2.0 03/23/25 08:00 95 Nasal Cannula* 5 40 LABS: Laboratory: Test 03/23/25 11:40 03/23/25 04:47 03/22/25 04:59 03/22/25 03:29 Range/Units Whole Blood Glucose 79 70-110 MG/DL White Blood Count 12.9 H 4.8-10.8 K/uL Red Blood Count 3.02 L 4.00-5.50 MIL/uL Hemoglobin 9.0 L 12.0-16.0 g/dL Hematocrit 29.2 L 36-48 % Mean Corpuscular Volume 96.7 79-99 fL Mean Corpuscular Hemoglobin 29.8 27.0-33.0 pg Mean Corpuscular Hemoglobin Concent 30.8 L 32.0-36.0 g/dL Red Cell Distribution Width 17.8 H 11.0-15.5 % Platelet Count 300 130-400 K/uL Mean Platelet Volume 10.7 H 7.5-10.5 fL Immature Granulocyte % (Auto) 0.5 0-1 % Neutrophils (%) (Auto) 66.8 40.0-77.0 % Lymphocytes (%) (Auto) 19.3 L 21.0-51.0 % Monocytes (%) (Auto) 8.6 3.0-13.0 % Eosinophils (%) (Auto) 3.8 0.0-8.0 % Basophils (%) (Auto) 1.0 0.0-5.0 % Neutrophils # (Auto) 8.6 H 1.8-7.7 K/uL Lymphocytes # (Auto) 2.5 1.0-4.8 K/uL Monocytes # (Auto) 1.1 H 0.1-1.0 K/uL Eosinophils # (Auto) 0.49 0.00-0.70 K/uL Basophils # (Auto) 0.13 0.00-0.20 K/uL Absolute Immature Granulocyte (auto 0.07 0-1 K/uL Nucleated Red Blood Cells 0.0 0.0-0.19 % Sodium Level 135 L 136-145 mmol/L Potassium Level 3.7 3.5-5.1 mmol/L Chloride Level 99 L 101-111 mmol/L Carbon Dioxide Level 28 21-32 mmol/L Blood Urea Nitrogen 22 H 7-18 mg/dL Creatinine 3.5 H 0.5-1.0 mg/dL Glomerular Filtration Rate Calc 15 >90 mL/min Random Glucose 93 70-105 mg/dL Total Calcium 7.2 L 8.5-10.1 mg/dL Thyroid Stimulating Hormone (TSH) 5.02 H 0.36-3.74 uIU/mL Blood Gas Specimen Type Arterial Arterial Blood pH 7.445 7.350-7.450 Arterial Blood Partial Pressure CO2 38 32-45 mmHg Arterial Blood HCO3 25.6 21.0-28.0 mmol/L Arterial Blood Oxygen Saturation 86.0 L 94.0-98.0 % Arterial Blood Base Excess 1.7 -2.0-3.0 mmol/L Blood Gas Temperature 37.0 35.5-37.0 CELSIUS Blood Gas Flow-by 3.00 0.00-15.00 L/min Blood Gas Vent Mode 3LNC ROOM AIR FiO2 32.0 % Blood Gas Specimen Comment JOSE RN, RB Phosphorus Level 5.8 H 2.5-4.9 mg/dL Total Bilirubin 0.5 0.2-1.0 mg/dL Aspartate Amino Transf (AST/SGOT) 15 10-37 U/L Alanine Aminotransferase (ALT/SGPT) 6 L 12-78 U/L Alkaline Phosphatase 97 50-136 U/L C-Reactive Protein, Quantitative 100.00 H 0.5-3.0 mg/L Total Protein 5.6 L 6.0-8.3 g/dL Albumin 1.6 L 3.5-5.0 g/dL Procalcitonin 0.53 H 0.05-0.5 ng/mL Current Medications Medications (Trade) Dose Ordered Sig/Lori Route PRN Reason Start Time Stop Time Status Last Admin Dose Admin Acetaminophen (TYLenol 325MG TAB) 650 mg Q4H PRN PO MILD PAIN (1-3) 03/19/25 05:00 04/18/25 04:59 Acetaminophen (TYLenol 325MG TAB) 650 mg Q6H PRN PO TEMPERATURE GREATER THAN 101.5 03/19/25 05:00 04/18/25 04:59 Acetaminophen/ Hydrocodone Bitart (NORco 5/325MG) 1 tab Q4H PRN PO MODERATE PAIN (4-6) 03/19/25 05:00 03/24/25 04:59 03/20/25 09:10 1 TAB Acetaminophen/ Hydrocodone Bitart (NORco 5/325MG) 2 tab Q4H PRN PO SEVERE PAIN (7-10) 03/19/25 05:00 03/24/25 04:59 03/20/25 15:44 2 TAB Aspirin (Aspirin 81mg Ec Tab) 81 mg DAILY PO 03/20/25 09:00 04/19/25 08:59 03/23/25 09:18 81 MG Calcitriol (Rocaltrol 0.25mcg Cap) 0.25 mcg DAILY PO 03/20/25 09:00 04/19/25 08:59 03/23/25 09:17 0.25 MCG Cefepime HCl (MAXipime 1 GM vial) 1 gm Q24H IVPB 03/19/25 05:00 03/29/25 04:59 03/23/25 06:10 1 GM Dextrose (D50w) 50 ml AD PRN IV HYPOGLYCEMIA PROTOCOL 03/19/25 05:00 04/18/25 04:59 Epoetin Tito-epbx (Retacrit) 10,000 unit QMOWEFR[DIALYSIS] SQ 03/24/25 16:00 04/23/25 15:59 Famotidine (Pepcid 20mg Tab) 10 mg Q48H PO 03/19/25 05:00 04/18/25 04:59 03/23/25 06:09 10 MG Furosemide (LASix 40MG TAB) 40 mg DAILY PO 03/20/25 09:00 03/21/25 19:37 DC 03/21/25 11:47 40 MG Glucagon (Glucagon 1mg Kit) 1 mg AD PRN IM HYPOGLYCEMIA PROTOCOL 03/19/25 05:00 04/18/25 04:59 Heparin Sodium (Porcine) (HEParin 5,000 UNIT VIAL) 5,000 unit AD IRRIG 03/19/25 11:00 03/20/25 14:36 DC Heparin Sodium (Porcine) (HEParin 5,000 UNIT VIAL) 5,000 unit Q12H SQ 03/19/25 05:30 03/19/25 17:09 DC 03/19/25 05:31 5,000 UNIT Heparin Sodium (Porcine) (HEParin 5,000 UNIT VIAL) 5,000 unit Q12H SQ 03/19/25 20:00 04/18/25 19:59 03/23/25 09:22 5,000 UNIT Heparin Sodium (Porcine) (HEParin 5,000 UNIT VIAL) 10,000 unit AD IRRIG 03/20/25 15:00 04/18/25 16:29 Heparin Sodium (Porcine) (HEParin 5,000 UNIT VIAL) 10,000 unit AD SQ 03/19/25 16:30 03/20/25 14:37 DC Hydralazine HCl (NABVHRIvln64HB TAB) 100 mg BID PO 03/19/25 21:00 03/21/25 19:37 DC 03/20/25 09:04 100 MG Insulin Human Regular (humuLIN R 100 UNIT/ML 3ML) INSULIN SLIDING SCAL... ACHS SQ 03/19/25 07:30 04/18/25 07:29 03/22/25 21:15 2 UNIT Isosorbide Mononitrate (Imdur 60mg Sr) 60 mg DAILY PO 03/20/25 09:00 5/19/25 08:59 03/23/25 09:17 60 MG Leptospermum Honey (Medihoney) 1 appl DAILY TP 03/20/25 16:00 04/19/25 15:59 03/23/25 09:29 1 APPL Lidocaine HCl (Lidocaine HCl Mpf 1% 2ml Vial) 0.5 ml AD IJ 03/19/25 11:00 03/19/25 11:01 DC Lidocaine/ Prilocaine (Emla) 1 appl ONCE TP 03/19/25 11:00 03/19/25 11:01 DC Metoprolol Succinate (TopROL XL) 100 mg DAILY PO 03/20/25 09:00 03/23/25 08:15 DC 03/20/25 09:04 100 MG Metronidazole/ Sodium Chloride 100 ml @ 100 mls/hr Q8H6 IVPB 03/19/25 06:00 03/29/25 05:59 03/23/25 13:26 100 MLS/HR Midodrine (PROAMatine 5 MG TABLET) 10 mg TID PO 03/20/25 22:30 04/19/25 22:29 03/23/25 13:26 10 MG Ondansetron HCl (zoFRAN 4MG INJ) 4 mg Q6H PRN IV NAUSEA/VOMITING 03/19/25 05:00 04/18/25 04:59 03/20/25 23:59 4 MG Piperacillin Sod/ Tazobactam Sod (Zosyn 3.375gm+NS 50ml) 3.375 gm ONCE STAT IV 03/19/25 00:50 03/19/25 00:56 DC 03/19/25 01:48 3.375 GM Sevelamer HCl (RENAgel 800 MG TAB) 800 mg TIDMEALS PO 03/23/25 12:00 04/22/25 11:59 Sodium Bicarbonate (Sodium Bicarbonate) 650 mg TID PO 03/19/25 14:00 03/20/25 13:48 DC 03/20/25 09:03 650 MG Sodium Chloride 250 ml @ 0 mls/hr AD IV 03/19/25 11:00 04/18/25 10:59 Sodium Chloride 1,000 ml @ 0 mls/hr ONCE IV 03/19/25 11:00 04/18/25 10:59 03/22/25 09:03 333 MLS/HR Sodium Chloride 1,000 ml @ 0 mls/hr ONCE IV 03/19/25 16:30 03/19/25 20:30 DC 03/19/25 20:29 333 MLS/HR Vancomycin HCl (Vancomycin 750mg) 750 mg QMOWEFR[DIALYSIS] IVPB 03/22/25 16:00 04/01/25 15:59 03/22/25 18:20 750 MG Vancomycin HCl (Vancomycin Protocol) 1 each AD IV 03/20/25 15:00 04/03/25 14:59 Vitamin B Complex/ Vit C/Folic Acid (Nephrovite Tablet) 1 cap DAILY PO 03/21/25 09:00 04/20/25 08:59 03/23/25 09:18 1 CAP DIAGNOSTICS / RADIOLOGY: [ ] ASSESSMENT: Severe peripheral vascular disease POA Acute hypoxic respiratory failure not POA Metabolic encephalopathy not POA. Infected left AKA stump POA Multiple necrotic wound ulcers to right lower extremity POA Elevated troponin due to demand ischemia POA Acute on chronic systolic CHF POA End-stage renal disease on hemodialysis POA Diabetes POA Acute anemia due to CKD POA Hypertension POA Sepsis without septic shock source infected wounds to bilateral lower extremities POA resolved PLAN: Nephrology added sevelamer and epoetin tito Currently on nasal cannula5 L. CTA of the chest did not reveal any pulmonary embolism. We will continue IV antibiotics for possible infiltrates. Patient has low transferrin saturation we will give IV Venofer with dialysis monitor hemoglobin Id consult noted and followed accordingly. Critical care consultation noted followed accordingly Continue with IV cefepime Flagyl and vancomycin. Adjust according to cultures. CT scan of the leg did not show any drainable abscess. We will leave the decision to do MRI on ID. Appreciate cardiology consult. Continue on goal-directed medical therapy for systolic CHF. Patient not a candidate of Richar or Arb as blood pressure is on the lower side. We will leave that decision to Cardiology. Patient already on metoprolol succinate. We will need LifeVest on discharge if agreeable and if Cardiology agrees. GI DVT prophylaxis per protocol ATTESTATION BY PHYSICIAN I have seen and examined the patient. I reviewed the documentation, medical decision making, and treatment plan as noted by the mid-level provider above. I agree with the findings and plan of care. Bernadette Marmolejo AISHWARYA MD Mar 23, 2025 15:31
--- NOTE | 2025-03-23 16:18 | PN ---
[facility] PROGRESS NOTE Date Patient Seen: Mar 23, 2025 Time of Visit: 15:51 Supervising Physician: Dr Xu Liao MD Primary Care Physician: self referred Outpatient Specialists: [ ] Inpatient Consults: [ ] PROBLEM LIST: Severe peripheral vascular disease POA Acute hypoxic respiratory failure not POA Bilateral pleural effusions with right > left Metabolic encephalopathy not POA. Infected left AKA stump POA Multiple necrotic wound ulcers to right lower extremity POA Elevated troponin due to demand ischemia POA Acute on chronic systolic CHF POA End-stage renal disease on hemodialysis POA Diabetes POA Acute anemia due to CKD POA Hypertension POA Gallstones poa Sepsis without septic shock source infected wounds to bilateral lower extremities POA INTERVAL HISTORY: No major overnight events. Patient has no complaints. Wound care perform per care team and tolerated well. Patient on 5 L via nasal cannula saturating 94% heart rate in the 60s and hemodynamically stable. Patient continues on IV antibiotics with cefepime vanco and Flagyl. We will repeat chest x-ray in the morning and consider oriented thoracentesis if enough fluid for safe thoracentesis. REVIEW OF SYSTEMS: General: No malaise or fever. Neurological: No fainting episodes or seizures. HEENT: No nasal congestion or nasal secretion. Respiratory: No cough, shortness of breath, or wheezing Cardiac: No chest pain or palpitations. Gastrointestinal: No vomiting or diarrhea. Genitourinary: No dysuria hematuria. Skin: No rashes or lesions. Hematological: No bruises or bleeding. Musculoskeletal: No joint pains or arthralgias. Yes to wound to moreno lower extremities. Psychiatric: No depression or panic attacks. PHYSICAL EXAM: GENERAL: alert, weak, awake oriented x 3 HEENT: EOMI, Sclera non icteric, moist mucosa NECK: Supple, no JVD, trachea midline LUNGS: Clear breath sounds bilaterally. No wheezes HEART: Regular rate and rhythm. Normal S1 and S2, without murmurs ABD: Abdomen soft, nontender. Bowel sounds present EXT: No clubbing cyanosis or edema NEURO: Alert and oriented to person, follows commands Vital Signs (last 8hr) Date Time Temp Pulse Resp B/P (MAP) Pulse Ox O2 Delivery O2 Flow Rate FiO2 03/23/25 12:00 97.5 75 19 122/56 93 Nasal Cannula 5.0 03/23/25 08:00 98.1 69 19 122/58 94 Nasal Cannula 2.0 03/23/25 08:00 95 Nasal Cannula* 5 40 LABS: Hematology Labs: Test 03/23/25 04:47 Range/Units White Blood Count 12.9 H 4.8-10.8 K/uL Red Blood Count 3.02 L 4.00-5.50 MIL/uL Hemoglobin 9.0 L 12.0-16.0 g/dL Hematocrit 29.2 L 36-48 % Mean Corpuscular Volume 96.7 79-99 fL Mean Corpuscular Hemoglobin 29.8 27.0-33.0 pg Mean Corpuscular Hemoglobin Concent 30.8 L 32.0-36.0 g/dL Red Cell Distribution Width 17.8 H 11.0-15.5 % Platelet Count 300 130-400 K/uL Mean Platelet Volume 10.7 H 7.5-10.5 fL Immature Granulocyte % (Auto) 0.5 0-1 % Neutrophils (%) (Auto) 66.8 40.0-77.0 % Lymphocytes (%) (Auto) 19.3 L 21.0-51.0 % Monocytes (%) (Auto) 8.6 3.0-13.0 % Eosinophils (%) (Auto) 3.8 0.0-8.0 % Basophils (%) (Auto) 1.0 0.0-5.0 % Neutrophils # (Auto) 8.6 H 1.8-7.7 K/uL Lymphocytes # (Auto) 2.5 1.0-4.8 K/uL Monocytes # (Auto) 1.1 H 0.1-1.0 K/uL Eosinophils # (Auto) 0.49 0.00-0.70 K/uL Basophils # (Auto) 0.13 0.00-0.20 K/uL Absolute Immature Granulocyte (auto 0.07 0-1 K/uL Nucleated Red Blood Cells 0.0 0.0-0.19 % Chemistry Labs: Test 03/23/25 11:40 03/23/25 04:47 03/22/25 03:29 Range/Units Whole Blood Glucose 79 70-110 MG/DL Sodium Level 135 L 136-145 mmol/L Potassium Level 3.7 3.5-5.1 mmol/L Chloride Level 99 L 101-111 mmol/L Carbon Dioxide Level 28 21-32 mmol/L Blood Urea Nitrogen 22 H 7-18 mg/dL Creatinine 3.5 H 0.5-1.0 mg/dL Glomerular Filtration Rate Calc 15 >90 mL/min Random Glucose 93 70-105 mg/dL Total Calcium 7.2 L 8.5-10.1 mg/dL Thyroid Stimulating Hormone (TSH) 5.02 H 0.36-3.74 uIU/mL Phosphorus Level 5.8 H 2.5-4.9 mg/dL Total Bilirubin 0.5 0.2-1.0 mg/dL Aspartate Amino Transf (AST/SGOT) 15 10-37 U/L Alanine Aminotransferase (ALT/SGPT) 6 L 12-78 U/L Alkaline Phosphatase 97 50-136 U/L C-Reactive Protein, Quantitative 100.00 H 0.5-3.0 mg/L Total Protein 5.6 L 6.0-8.3 g/dL Albumin 1.6 L 3.5-5.0 g/dL Procalcitonin 0.53 H 0.05-0.5 ng/mL DIAGNOSTICS / RADIOLOGY RESULTS: [ ] IMAGING REPORT Signed PATIENT: KATY GOMEZ MR#: [id number] : 1965 SEX: F AGE: 59 LOCATION: 2AH ORDER 56 STATUS: ADM IN [facility] REPORT#: [id number] SERVICE 51 REASON: poss obstruction, aspiration ORDERING PHYSICIAN: IRAIS SALGADO [employer]MENT OF SOCIOLOGY CHAIR PROCEDURE: ABD 1VW - ABD 1VW ABD 1VW HISTORY: poss obstruction, aspiration TECHNIQUE: ABD 1VW. COMPARISON: None. FINDINGS AND IMPRESSION: Nonspecific bowel gas pattern is seen. Vascular stents seen in the bilateral iliac system and IVC. Degenerative changes of the spine are seen. DICTATED BY: MICH FIORE MD DATE: 03/21/25 1159 ELECTRONICALLY SIGNED BY: MICH FIORE MD DATE: 03/21/25 1155 PLAN Maintain pulse oximetry of Of 92% and above Follow Nephrology recommendations Chest x-ray in the morning Point of care ultrasound in the morning to assess if enough pleural fluid for th oracentesis Hold heparin in a.m. for possible bedside thoracentesis. NEURO: Minimize central acting medications as possible. Maintain fall precautions, adequate lighting during the day PULMONARY: Supplemental 02 as needed. Maintain aspiration precautions at all times CARDIOVASCULAR: Follow hemodynamics. Vital signs per facility protocol GI & NUTRITION: Continue with nutritional support. Continue stool softeners and laxatives as needed. KIDNEYS & ELECTROLYTES: Strict monitoring of intake, output and overall fluid balance. Avoid nephrotoxic medications to the extent possible. Medications to be dosed according to renal function. Monitor electrolytes and replace as needed ENDOCRINE: Maintain blood glucose between 100-180 at all times. Hypoglycemia protocol in place INFECTIOUS DISEASE: Trend temperature, WBC and procalcitonin level Follow cultures, deescalate antibiotics as soon as possible. Panculture if new onset fever ONCOLOGY/HEMATOLOGY/COAGULATION: Monitor for s/s of bleeding Monitor hemoglobin, coagulation studies as needed SKIN: Pressure ulcer prevention per facility protocol Specialty mattress ORTHO/REHAB: Continue PT/OT Prophylaxis: Continue GI and DVT prophylaxis Code Status: Full Resuscitation Disposition: TBD Other: Total patient care time exceeds 35 minutes excluding all procedures. ATTESTATION BY PHYSICIAN I reviewed the documentation, medical decision making, and treatment plan as noted by the mid-level provider above. I agree with the findings and plan of care. Xu Liao MD, NELLY J ARNP Mar 23, 2025 16:18
[2025-03-23 16:30] LABS: INR 1.45 (0.85-1.15); PROTHROMBIN TIME 14.8 SEC (9.6-11.6)
--- NOTE | 2025-03-23 18:37 | PN ---
INFECTIOUS DISEASE PROGRESS NOTE Date of Service: Mar 23, 2025 SUBJECTIVE: This is a 59-year-old female patient with past medical history of end-stage renal disease, on dialysis, hypertension, current tobacco use, severe peripheral artery disease, CHF and diabetes mellitus who presented to the hospital with c hief complaint of pain to bilateral lower extremities and gluteus. On admission patient had a fever of 101.5 the WBC was 11.5. Troponin level was 400 and a BNP of greater than 5000. REVIEW OF SYSTEMS CONSTITUTIONAL: Denies fever, chills, or fatigue. HEAD/FACE: No signs of trauma. EENT: Denies eye pain, blurred vision, double vision, or light sensitivity. RESPIRATORY: Denies shortness of breath, cough, wheezing. Shortness of breaths . CARDIOVASCULAR: Denies chest pain, palpitation, syncope GASTROINTESTINAL/ABDOMINAL: Denies abdominal pain, constipation, diarrhea, nausea or vomiting GENITOURINARY: Denies dysuria or hematuria. MUSCULOSKELETAL: Denies joint pain, tenderness, or trauma. INTEGUMENTARY: Left AKA stump incision. NEUROLOGICAL/PSYCH: Denies anxiety, depression, heat or cold intolerance. PHYSICAL EXAM EYES: Anicteric. Pupils equal and reactive. HENT: No oral thrush seen, moist Oral mucosa. NECK: Supple, no JVD or thyromegaly. LUNGS: Good air entry. No rales, no rhonchi. Oxygen support via nasal cannula. CARDIOVASCULAR: S1, S2 regular. No murmur heard. ABDOMEN: Soft, non tender, bowel sounds present, no organomegaly. CENTRAL NERVOUS SYSTEM: Awake, alert, oriented x 3. SKIN: No rashes, no swelling. LYMPHATICS: No peripheral lymphadenopathy. MUSCULOSKELETAL: No joint swelling, erythema or tenderness. EXTREMITIES: No cyanosis or clubbing. Left AKA stump necrosis. 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 BACK: No deformity, no pressure ulcer. GENITOURINARY: No dysuria or hematuria. Vital Sign (Last 12 Hours) 03/23/25 03/23/25 03/23/25 03/23/25 07:11 08:00 08:00 12:00 Temp 98.1 97.5 Pulse 70 69 75 Resp 20 19 19 B/P (MAP) 122/58 122/56 Pulse Ox 95 94 93 O2 Delivery N/Cannula Low lpm Nasal Cannula* Nasal Cannula Nasal Cannula O2 Flow Rate 2.0 5 2.0 5.0 FiO2 28 40 03/23/25 16:00 Temp 98.1 Pulse 70 Resp 19 B/P (MAP) 119/56 Pulse Ox 95 O2 Delivery Nasal Cannula O2 Flow Rate 5.0 Intake & Output (last 24hrs) 03/22/25 03/22/25 03/23/25 15:00 23:00 07:00 Intake Total 100.0 ml 250.0 ml 60 ml Output Total 2000 ml 2000 ml Balance -1900.0 ml -1750.0 ml 60 ml LABS: Laboratory: Test 03/23/25 16:15 03/23/25 16:13 03/23/25 04:47 03/22/25 04:59 Range/Units Prothrombin Time 14.8 H 9.6-11.6 SEC Prothromb Time International Ratio 1.45 H 0.85-1.15 Fibrinogen 469 H 180-350 mg/dL Whole Blood Glucose 111 H 70-110 MG/DL White Blood Count 12.9 H 4.8-10.8 K/uL Red Blood Count 3.02 L 4.00-5.50 MIL/uL Hemoglobin 9.0 L 12.0-16.0 g/dL Hematocrit 29.2 L 36-48 % Mean Corpuscular Volume 96.7 79-99 fL Mean Corpuscular Hemoglobin 29.8 27.0-33.0 pg Mean Corpuscular Hemoglobin Concent 30.8 L 32.0-36.0 g/dL Red Cell Distribution Width 17.8 H 11.0-15.5 % Platelet Count 300 130-400 K/uL Mean Platelet Volume 10.7 H 7.5-10.5 fL Immature Granulocyte % (Auto) 0.5 0-1 % Neutrophils (%) (Auto) 66.8 40.0-77.0 % Lymphocytes (%) (Auto) 19.3 L 21.0-51.0 % Monocytes (%) (Auto) 8.6 3.0-13.0 % Eosinophils (%) (Auto) 3.8 0.0-8.0 % Basophils (%) (Auto) 1.0 0.0-5.0 % Neutrophils # (Auto) 8.6 H 1.8-7.7 K/uL Lymphocytes # (Auto) 2.5 1.0-4.8 K/uL Monocytes # (Auto) 1.1 H 0.1-1.0 K/uL Eosinophils # (Auto) 0.49 0.00-0.70 K/uL Basophils # (Auto) 0.13 0.00-0.20 K/uL Absolute Immature Granulocyte (auto 0.07 0-1 K/uL Nucleated Red Blood Cells 0.0 0.0-0.19 % Sodium Level 135 L 136-145 mmol/L Potassium Level 3.7 3.5-5.1 mmol/L Chloride Level 99 L 101-111 mmol/L Carbon Dioxide Level 28 21-32 mmol/L Blood Urea Nitrogen 22 H 7-18 mg/dL Creatinine 3.5 H 0.5-1.0 mg/dL Glomerular Filtration Rate Calc 15 >90 mL/min Random Glucose 93 70-105 mg/dL Total Calcium 7.2 L 8.5-10.1 mg/dL Vitamin D 25-Hydroxy 12.4 30.0-100.0 ng/mL Thyroid Stimulating Hormone (TSH) 5.02 H 0.36-3.74 uIU/mL Blood Gas Specimen Type Arterial Arterial Blood pH 7.445 7.350-7.450 Arterial Blood Partial Pressure CO2 38 32-45 mmHg Arterial Blood HCO3 25.6 21.0-28.0 mmol/L Arterial Blood Oxygen Saturation 86.0 L 94.0-98.0 % Arterial Blood Base Excess 1.7 -2.0-3.0 mmol/L Blood Gas Temperature 37.0 35.5-37.0 CELSIUS Blood Gas Flow-by 3.00 0.00-15.00 L/min Blood Gas Vent Mode 3LNC ROOM AIR FiO2 32.0 % Blood Gas Specimen Comment JOSE RN, RB Test 03/22/25 03:29 Range/Units Phosphorus Level 5.8 H 2.5-4.9 mg/dL Total Bilirubin 0.5 0.2-1.0 mg/dL Aspartate Amino Transf (AST/SGOT) 15 10-37 U/L Alanine Aminotransferase (ALT/SGPT) 6 L 12-78 U/L Alkaline Phosphatase 97 50-136 U/L C-Reactive Protein, Quantitative 100.00 H 0.5-3.0 mg/L Total Protein 5.6 L 6.0-8.3 g/dL Albumin 1.6 L 3.5-5.0 g/dL Procalcitonin 0.53 H 0.05-0.5 ng/mL ASSESSMENT: Left AKA stump necrosis. Right leg calciphylaxis. Leukocytosis. Anemia. Severe PAD. End-stage renal disease, on dialysis. Diabetes mellitus. Chronic tobacco abuse. PLAN: Continue vancomycin as currently ordered. Continue cefepime. Continue metronidazole. Continue GI prophylaxis. Continue dialysis as recommended by polymerization helper. Continue wound care. Continue antidiabetics. Patient to continue IV antibiotics for 7-10 more days. This case was reviewed and discussed with my supervising physician and the above assessment and plan was formulated and agreed upon. ATTESTATION BY PHYSICIAN I have seen and examined the patient. I reviewed the documentation, medical decision making, and treatment plan as noted by the mid-level provider above. I agree with the findings and plan of care. DARRIN MUNOZ MD, [facility] Mar 23, 2025 18:37
[2025-03-24] VITALS (26 sets, daily range): BP systolic 96–151; BP diastolic 47–68; PULSE 59–71; RESP 16–21; TEMP 97.4–98.9; O2SAT 96–99
[2025-03-24 04:22] LABS: BASOPHILS # (AUTO) 0.14 K/uL (0.00-0.20); BASOPHILS % (AUTO) 1.1 % (0.0-5.0); EOSINOPHILS # (AUTO) 0.35 K/uL (0.00-0.70); EOSINOPHILS % (AUTO) 2.7 % (0.0-8.0); HEMATOCRIT 27.8 % (36-48); IMMATURE GRANULOCYTE ABSOLUTE 0.08 K/uL (0-1); LYMPHOCYTES # (AUTO) 2.7 K/uL (1.0-4.8); LYMPHOCYTES % (AUTO) 20.6 % (21.0-51.0); MEAN CORPUSCULAR HEMOGLOBIN 29.7 pg (27.0-33.0); MEAN CORPUSCULAR HGB CONC 30.6 g/dL (32.0-36.0); MEAN CORPUSCULAR VOLUME 97.2 fL (79-99); MONOCYTES # (AUTO) 1.1 K/uL (0.1-1.0); MONOCYTES % (AUTO) 8.2 % (3.0-13.0); NEUTROPHILS # (AUTO) 8.6 K/uL (1.8-7.7); NEUTROPHILS % (AUTO) 66.8 % (40.0-77.0); PLATELET COUNT (AUTO) 308 K/uL (130-400); RED BLOOD CELL COUNT(AUTO) 2.86 MIL/uL (4.00-5.50); RED CELL DISTRIBUTION WIDTH 17.8 % (11.0-15.5); WHITE BLOOD COUNT (AUTO) 12.9 K/uL (4.8-10.8)
[2025-03-24 05:16] LABS: ALBUMIN 1.5 g/dL (3.5-5.0); BILIRUBIN,TOTAL 0.4 mg/dL (0.2-1.0); CREATININE 4.2 mg/dL (0.5-1.0); POTASSIUM 3.6 mmol/L (3.5-5.1); TOTAL PROTEIN, SERUM 5.6 g/dL (6.0-8.3)
--- NOTE | 2025-03-24 09:05 | PN ---
DIALYSIS NOTE SUBJECTIVE: The patient was seen and evaluated on hemodialysis, prescription noted. PHYSICAL EXAMINATION: VITAL SIGNS: Blood pressure is 136/53. CARDIOVASCULAR: Regular. LUNGS: Coarse. IMPRESSION: ESRD. PLAN: The patient will continue with maximum ultrafiltration as blood pressure allows. The patient is being seen by case management for final disposition. The patient remains on the antibiotics. TID: [id number] RECEIPT: [id number]
--- NOTE | 2025-03-24 11:08 | HMCIMG ---
Exam Type: CHEST 1VW Clinical Information: evaluate for effusion Comparison: None Findings: Right permacath line is noted with tip at the distal superior vena caval level. The lungs are clear of infiltrates. The heart is enlarged. Bony and soft tissue structures of the chest wall are unremarkable. IMPRESSION: Cardiomegaly. Clear lungs.
--- NOTE | 2025-03-24 13:23 | PN ---
[facility] PROGRESS NOTE Date Patient Seen: Mar 24, 2025 Time of Visit: 13:19 Supervising Physician: NIRMALA NUNEZ MD Primary Care Physician: self referred Outpatient Specialists: [ ] Inpatient Consults: [ ] PROBLEM LIST: Acute sepsis without septic shock present on admission Sepsis secondary to infected wounds to the lower extremities bilaterally Severe peripheral vascular disease Infected left AKA stump Multiple necrotic ulcers and wounds to the right lower extremity on admission Acute on chronic systolic heart failure exacerbation on admission Troponin leak secondary to metabolic demand End-stage renal disease on hemodialysis Type 2 diabetes mellitus with hyperglycemia Essential hypertension Acute hypoxemic respiratory failure secondary to gross volume overload with pulmonary edema INTERVAL HISTORY: Patient is seen and evaluated and the events of the last 24 hours noted and updated Patient is currently on 3 L oxygen via nasal cannula She is scheduled for hemodialysis today Chest x-ray reviewed, no interventional pulmonary procedure planned for now Minimal effusion does not warrant thoracentesis May resume heparin REVIEW OF SYSTEMS: General: No malaise or fever. Neurological: No fainting episodes or seizures. HEENT: No nasal congestion or nasal secretion. Respiratory: No cough, shortness of breath, or wheezing Cardiac: No chest pain or palpitations. Gastrointestinal: No vomiting or diarrhea. Genitourinary: No dysuria hematuria. Skin: No rashes or lesions. Hematological: No bruises or bleeding. Musculoskeletal: No joint pains or arthralgias. Yes to wound to moreno lower extremities. Psychiatric: No depression or panic attacks. PHYSICAL EXAM: GENERAL: alert, weak, awake oriented x 3 HEENT: EOMI, Sclera non icteric, moist mucosa NECK: Supple, no JVD, trachea midline LUNGS: Clear breath sounds bilaterally. No wheezes HEART: Regular rate and rhythm. Normal S1 and S2, without murmurs ABD: Abdomen soft, nontender. Bowel sounds present EXT: No clubbing cyanosis or edema NEURO: Alert and oriented to person, follows commands Vital Signs (last 8hr) Date Time Temp Pulse Resp B/P (MAP) Pulse Ox O2 Delivery O2 Flow Rate FiO2 03/24/25 12:00 98.8 62 20 124/51 100 Nasal Cannula 5.0 03/24/25 08:30 98 Nasal Cannula* 3 32 03/24/25 08:00 97.5 59 20 136/53 98 Nonrebreathing Mask 5.0 03/24/25 06:45 64 20 N/Cannula Oximizer Hi LPM 3.0 32 LABS: Hematology Labs: Test 03/24/25 03:54 Range/Units White Blood Count 12.9 H 4.8-10.8 K/uL Red Blood Count 2.86 L 4.00-5.50 MIL/uL Hemoglobin 8.5 L 12.0-16.0 g/dL Hematocrit 27.8 L 36-48 % Mean Corpuscular Volume 97.2 79-99 fL Mean Corpuscular Hemoglobin 29.7 27.0-33.0 pg Mean Corpuscular Hemoglobin Concent 30.6 L 32.0-36.0 g/dL Red Cell Distribution Width 17.8 H 11.0-15.5 % Platelet Count 308 130-400 K/uL Mean Platelet Volume 10.9 H 7.5-10.5 fL Immature Granulocyte % (Auto) 0.6 0-1 % Neutrophils (%) (Auto) 66.8 40.0-77.0 % Lymphocytes (%) (Auto) 20.6 L 21.0-51.0 % Monocytes (%) (Auto) 8.2 3.0-13.0 % Eosinophils (%) (Auto) 2.7 0.0-8.0 % Basophils (%) (Auto) 1.1 0.0-5.0 % Neutrophils # (Auto) 8.6 H 1.8-7.7 K/uL Lymphocytes # (Auto) 2.7 1.0-4.8 K/uL Monocytes # (Auto) 1.1 H 0.1-1.0 K/uL Eosinophils # (Auto) 0.35 0.00-0.70 K/uL Basophils # (Auto) 0.14 0.00-0.20 K/uL Absolute Immature Granulocyte (auto 0.08 0-1 K/uL Nucleated Red Blood Cells 0.0 0.0-0.19 % Chemistry Labs: Test 03/24/25 11:47 03/24/25 03:54 03/23/25 04:47 Range/Units Whole Blood Glucose 144 H 70-110 MG/DL Sodium Level 135 L 136-145 mmol/L Potassium Level 3.6 3.5-5.1 mmol/L Chloride Level 100 L 101-111 mmol/L Carbon Dioxide Level 29 21-32 mmol/L Blood Urea Nitrogen 32 H 7-18 mg/dL Creatinine 4.2 H 0.5-1.0 mg/dL Glomerular Filtration Rate Calc 12 >90 mL/min Random Glucose 139 H 70-105 mg/dL Total Calcium 7.1 L 8.5-10.1 mg/dL Total Bilirubin 0.4 0.2-1.0 mg/dL Aspartate Amino Transf (AST/SGOT) 14 10-37 U/L Alanine Aminotransferase (ALT/SGPT) 6 L 12-78 U/L Alkaline Phosphatase 105 50-136 U/L C-Reactive Protein, Quantitative 67.70 H 0.5-3.0 mg/L Total Protein 5.6 L 6.0-8.3 g/dL Albumin 1.5 L 3.5-5.0 g/dL Procalcitonin 0.51 H 0.05-0.5 ng/mL Vitamin D 25-Hydroxy 12.4 30.0-100.0 ng/mL Thyroid Stimulating Hormone (TSH) 5.02 H 0.36-3.74 uIU/mL Coagulation Labs: Test 03/23/25 16:15 Range/Units Prothrombin Time 14.8 H 9.6-11.6 SEC Prothromb Time International Ratio 1.45 H 0.85-1.15 Fibrinogen 469 H 180-350 mg/dL DIAGNOSTICS / RADIOLOGY RESULTS: Chest x-ray reviewed at bedside, no infiltrates, small effusion. PLAN No invasive pulmonary procedure planned Effusion to the left lung is minimal, risk of procedure higher than benefit obtained from procedure Resume heparin NEURO: Minimize central acting medications as possible. Maintain fall precautions, adequate lighting during the day PULMONARY: Supplemental 02 as needed. Maintain aspiration precautions at all times CARDIOVASCULAR: Follow hemodynamics. Vital signs per facility protocol GI & NUTRITION: Continue with nutritional support. Continue stool softeners and laxatives as needed. KIDNEYS & ELECTROLYTES: Strict monitoring of intake, output and overall fluid balance. Avoid nephrotoxic medications to the extent possible. Medications to be dosed according to renal function. Monitor electrolytes and replace as needed ENDOCRINE: Maintain blood glucose between 100-180 at all times. Hypoglycemia protocol in place INFECTIOUS DISEASE: Trend temperature, WBC and procalcitonin level Follow cultures, deescalate antibiotics as soon as possible. Panculture if new onset fever ONCOLOGY/HEMATOLOGY/COAGULATION: Monitor for s/s of bleeding Monitor hemoglobin, coagulation studies as needed SKIN: Pressure ulcer prevention per facility protocol Specialty mattress ORTHO/REHAB: Continue PT/OT Prophylaxis: Continue GI and DVT prophylaxis Code Status: Full Resuscitation Disposition: TBD Other: Total patient care time exceeds 35 minutes excluding all procedures. I personally scribed for NIRMALA NUNEZ MD ([email or web address]) on 03/24/25 at 13:23. Electronically submitted by Robbin Harry ([email or web address]). NIRMALA NUNEZ MD Mar 24, 2025 13:23
[2025-03-24] MEDS: 0.9%NACL 1000ML 1,000 ML IV SCH (14:00)
--- NOTE | 2025-03-24 14:39 | PN ---
[facility] PROGRESS NOTE Date of Service: Mar 24, 2025 Time of Service: 14:34 SUBJECTIVE: [ 59-year-old female not a good historian, with past medical history of CHF, hypertension , severe peripheral vascular disease, diabetes and end-stage renal disease on hemodialysis Saturday who was brought by EMS to the ED for complaints of pain to buttocks and bilateral lower extremities and fever.Patient reports she was recently admitted at [facility] for fluid overload and was discharged 2 days ago .Patient states she has a left AKA that was done 2 weeks ago and looks infected and she also has a multiple wound ulcers with some necrosis to right lower extremity and both extremities are swollen,with erythema and warm to to touch .Patient has no records here for any admissions. Upon arrival to the ED vital signs temperature 101.5, heart rate 92 blood pressure 130/71 saturation 98% on room air Seen and examined patient int he ED awake,alert and coherent and irritable.Patient denies chest pain,palpitation,cough and shortness of breath. Latest vital signs temperature 99.1, heart rate 95, blood pressure 114/60 saturation 98% on room air. Labs: WBC 11 , hemoglobin 9, hematocrit 29 platelet count 199. Chloride 99, BUN 32, creatinine 4.5 GFR 11, calcium 7.4 troponin 400 BNP 5000 chest x-ray, arterial ultrasound and venous Doppler result are still pending at this time. ECG unavailable at this time. While in the ER patient received Zosyn IV and fentanyl 50 mcg IV. We will admit patient for further medical management. 03/20/2025. Patient seen and examined denies any new complaints. 2D echo report discussed with the patient patient has low EF she is aware of that. Patient was seen by Cardiology Dr. Hodge no interventions planned. CT scan of the left below-knee amputation stump was done did reveal soft tissue edema no abscess noted. Pending ID consult. 03/21/2025. Patient was seen and examined. I received a call from nursing that patient was only responding to sternal rub and not waking up, immediately ABG was ordered which showed hypoxia no hypercapnia, injection of Narcan was given with some improvement in her mental status, CT head stat was ordered. Chest x- ray was ordered. Patient was transferred to PCU. Critical care consult was placed. Patient mental status improved she is alert oriented time three at this point. 03/22/2025. Patient was seen and examined along with RN. No new complaints. Patient is alert oriented x3. we are holding any narcotics. Critical Care on board. Continue on IV antibiotics awaiting formal consult from ID. 03/23-patient was seen and examined at the bedside. No new complaints noted. Patient is held on narcotics as she was hypoxic. Now doing stable alert and oriented. ID recommends to continue the same medications of vancomycin, cefepime and Flagyl for 10 days. Critical Care on board. Dr. Reno nephrology as added sevelamer for her increased phosphorus of 5.2 and epoetin alpha, Once she is discharged she is highly encouraged to follow up at the dialysis unit. 03/24/2025-patient was seen and examined at the bedside. She is doing better no new complaints noted. On3 L of oxygen, protocol and CRP are trending down. patient will continue with maximum ultrafiltration as blood pressure allows. The patient is being seen by case management for final disposition. Continues on IV antibiotics. She is scheduled for dialysis today. The plan was to do a chest x-ray to see if there is any pleural effusion for thoracocentesis by critical care. Chest x-ray reviewed, no interventional pulmonary procedure planned for now Minimal effusion does not warrant thoracentesis.May resume heparin. REVIEW OF SYSTEMS CONSTITUTIONAL: Denies fevers, chills, or night sweats. No unintentional weight loss reported. NEUROLOGICAL: Denies headache, amaurosis fugax, motor weakness, sensory deficit, vertigo/spinning sensation, gait abnormalities, or tremors. ENT: No hearing loss, otalgia, otorrhea, rhinitis, rhinorrhea, hoarseness, or sore throat. CARDIOVASCULAR: Denies any exertional angina, dyspnea on exertion, orthopnea, paroxysmal nocturnal dyspnea, palpitations, life-threatening arrhythmias, claudication. PULMONARY: Denies any shortness of breath, cough, phlegm/sputum, hemoptysis, pleuritic chest pain. SLEEP: Denies morning headaches, daytime somnolence or napping. Denies difficulty falling asleep, staying asleep, waking from sleep. Denies knowledge of snoring. GASTROINTESTINAL: Denies any type of dysphagia to either liquids or solids. Denies nausea, vomiting, pyrosis, early satiety, abdominal pain, diarrhea, constipation, or changes in stool consistency or caliber. Denies coffee-ground emesis, hematemesis, hematochezia, or melanotic stools. GENITOURINARY: Denies frequency, urgency, nocturia, hematuria or incontinence (Storage/Irritative symptoms.) Low urinary stream, straining to void, urinary intermittency or hesitancy, splitting of the voiding stream, terminal dribbling. ENDOCRINOLOGIC: Denies polyuria, polydipsia, polyphagia or heat/cold intolerances. HEMATOLOGIC: Denies thrombophilia/previous clots, or coagulopathy/bleeding disorders. ONCOLOGIC: Denies personal history of malignancy. DERMATOLOGIC: Denies rashes or pruritus. PSYCHIATRIC: Denies any suicidal or homicidal ideation. Denies hallucinations. PHYSICAL EXAM GENERAL APPEARANCE: The patient is awake, alert, and oriented, in no acute cardiopulmonary distress. NEUROLOGICAL: Cranial nerves II-XII grossly intact. Motor is 5/5 in bilateral upper and lower extremities proximal to distal. No sensory deficits. HEENT: Face is symmetric. Pupils are equal and reactive. Extraocular movements are intact. NECK: Supple. No JVD. No thyromegaly. No submental, submandibular, pre- /postauricular, occipital or supraclavicular lymphadenopathy. CHEST: Normal chest expansion. No Telemetry. LUNGS: Absence of any rales, rhonchi or any wheezing. CARDIOVASCULAR: Regular. S1 and S2 normal. No appreciable rubs, murmurs or gallops. ABDOMEN: Soft, nontender, and nondistended. There is no rebound, voluntary gu arding, or rigidity. : Deferred. No Ta. EXTREMITIES: Left AKA with emily intact. Swollen right lower extremity SKIN: Infected left stump and right lower extremity multiple necrotic wound ulcers Vital Signs (last 8hr) Date Time Temp Pulse Resp B/P (MAP) Pulse Ox O2 Delivery O2 Flow Rate FiO2 03/24/25 12:45 97.7 62 16 129/60 Nasal Cannula 3.0 03/24/25 12:00 98.8 62 20 124/51 100 Nasal Cannula 5.0 03/24/25 08:30 98 Nasal Cannula* 3 32 03/24/25 08:00 97.5 59 20 136/53 98 Nonrebreathing Mask 5.0 03/24/25 06:45 64 20 N/Cannula Oximizer Hi LPM 3.0 32 LABS: Laboratory: Test 03/24/25 11:47 03/24/25 03:54 03/23/25 16:15 03/23/25 07:42 Range/Units Whole Blood Glucose 144 H 70-110 MG/DL White Blood Count 12.9 H 4.8-10.8 K/uL Red Blood Count 2.86 L 4.00-5.50 MIL/uL Hemoglobin 8.5 L 12.0-16.0 g/dL Hematocrit 27.8 L 36-48 % Mean Corpuscular Volume 97.2 79-99 fL Mean Corpuscular Hemoglobin 29.7 27.0-33.0 pg Mean Corpuscular Hemoglobin Concent 30.6 L 32.0-36.0 g/dL Red Cell Distribution Width 17.8 H 11.0-15.5 % Platelet Count 308 130-400 K/uL Mean Platelet Volume 10.9 H 7.5-10.5 fL Immature Granulocyte % (Auto) 0.6 0-1 % Neutrophils (%) (Auto) 66.8 40.0-77.0 % Lymphocytes (%) (Auto) 20.6 L 21.0-51.0 % Monocytes (%) (Auto) 8.2 3.0-13.0 % Eosinophils (%) (Auto) 2.7 0.0-8.0 % Basophils (%) (Auto) 1.1 0.0-5.0 % Neutrophils # (Auto) 8.6 H 1.8-7.7 K/uL Lymphocytes # (Auto) 2.7 1.0-4.8 K/uL Monocytes # (Auto) 1.1 H 0.1-1.0 K/uL Eosinophils # (Auto) 0.35 0.00-0.70 K/uL Basophils # (Auto) 0.14 0.00-0.20 K/uL Absolute Immature Granulocyte (auto 0.08 0-1 K/uL Nucleated Red Blood Cells 0.0 0.0-0.19 % Sodium Level 135 L 136-145 mmol/L Potassium Level 3.6 3.5-5.1 mmol/L Chloride Level 100 L 101-111 mmol/L Carbon Dioxide Level 29 21-32 mmol/L Blood Urea Nitrogen 32 H 7-18 mg/dL Creatinine 4.2 H 0.5-1.0 mg/dL Glomerular Filtration Rate Calc 12 >90 mL/min Random Glucose 139 H 70-105 mg/dL Total Calcium 7.1 L 8.5-10.1 mg/dL Total Bilirubin 0.4 0.2-1.0 mg/dL Aspartate Amino Transf (AST/SGOT) 14 10-37 U/L Alanine Aminotransferase (ALT/SGPT) 6 L 12-78 U/L Alkaline Phosphatase 105 50-136 U/L C-Reactive Protein, Quantitative 67.70 H 0.5-3.0 mg/L Total Protein 5.6 L 6.0-8.3 g/dL Albumin 1.5 L 3.5-5.0 g/dL Procalcitonin 0.51 H 0.05-0.5 ng/mL Vancomycin Level 26.0 20.0-30.0 mcg/mL Prothrombin Time 14.8 H 9.6-11.6 SEC Prothromb Time International Ratio 1.45 H 0.85-1.15 Fibrinogen 469 H 180-350 mg/dL Cortisol AM Sample 17.5 6.2-19.4 ug/dL Test 03/23/25 04:47 Range/Units Vitamin D 25-Hydroxy 12.4 30.0-100.0 ng/mL Thyroid Stimulating Hormone (TSH) 5.02 H 0.36-3.74 uIU/mL Current Medications Medications (Trade) Dose Ordered Sig/Lori Route PRN Reason Start Time Stop Time Status Last Admin Dose Admin Acetaminophen (TYLenol 325MG TAB) 650 mg Q4H PRN PO MILD PAIN (1-3) 03/19/25 05:00 04/18/25 04:59 Acetaminophen (TYLenol 325MG TAB) 650 mg Q6H PRN PO TEMPERATURE GREATER THAN 101.5 03/19/25 05:00 04/18/25 04:59 Acetaminophen/ Hydrocodone Bitart (NORco 5/325MG) 1 tab Q4H PRN PO MODERATE PAIN (4-6) 03/19/25 05:00 03/24/25 04:59 DC 03/20/25 09:10 1 TAB Acetaminophen/ Hydrocodone Bitart (NORco 5/325MG) 2 tab Q4H PRN PO SEVERE PAIN (7-10) 03/19/25 05:00 03/24/25 04:59 DC 03/20/25 15:44 2 TAB Aspirin (Aspirin 81mg Ec Tab) 81 mg DAILY PO 4/19/25 09:00 04/19/25 08:59 03/24/25 08:48 81 MG Calcitriol (Rocaltrol 0.25mcg Cap) 0.25 mcg DAILY PO 03/20/25 09:00 04/19/25 08:59 03/24/25 08:48 0.25 MCG Cefepime HCl (MAXipime 1 GM vial) 1 gm Q24H IVPB 03/19/25 05:00 03/29/25 04:59 03/24/25 04:32 1 GM Dextrose (D50w) 50 ml AD PRN IV HYPOGLYCEMIA PROTOCOL 03/19/25 05:00 04/18/25 04:59 Epoetin Tito-epbx (Retacrit) 10,000 unit QMOWEFR[DIALYSIS] SQ 03/24/25 16:00 04/23/25 15:59 Famotidine (Pepcid 20mg Tab) 10 mg Q48H PO 03/19/25 05:00 04/18/25 04:59 03/23/25 06:09 10 MG Furosemide (LASix 40MG TAB) 40 mg DAILY PO 03/20/25 09:00 03/21/25 19:37 DC 03/21/25 11:47 40 MG Glucagon (Glucagon 1mg Kit) 1 mg AD PRN IM HYPOGLYCEMIA PROTOCOL 03/19/25 05:00 04/18/25 04:59 Heparin Sodium (Porcine) (HEParin 5,000 UNIT VIAL) 5,000 unit AD IRRIG 03/19/25 11:00 03/20/25 14:36 DC Heparin Sodium (Porcine) (HEParin 5,000 UNIT VIAL) 5,000 unit Q12H SQ 03/19/25 05:30 03/19/25 17:09 DC 03/19/25 05:31 5,000 UNIT Heparin Sodium (Porcine) (HEParin 5,000 UNIT VIAL) 5,000 unit Q12H SQ 03/19/25 20:00 04/18/25 19:59 03/24/25 12:18 5,000 UNIT Heparin Sodium (Porcine) (HEParin 5,000 UNIT VIAL) 10,000 unit AD IRRIG 03/20/25 15:00 04/18/25 16:29 Heparin Sodium (Porcine) (HEParin 5,000 UNIT VIAL) 10,000 unit AD SQ 03/19/25 16:30 03/20/25 14:37 DC Hydralazine HCl (MCPEUQTxdd48FT TAB) 100 mg BID PO 03/19/25 21:00 03/21/25 19:37 DC 03/20/25 09:04 100 MG Insulin Human Regular (humuLIN R 100 UNIT/ML 3ML) INSULIN SLIDING SCAL... ACHS SQ 03/19/25 07:30 04/18/25 07:29 03/22/25 21:15 2 UNIT Isosorbide Mononitrate (Imdur 60mg Sr) 60 mg DAILY PO 03/20/25 09:00 04/19/25 08:59 03/23/25 09:17 60 MG Leptospermum Honey (Medihoney) 1 appl DAILY TP 03/20/25 16:00 04/19/25 15:59 03/24/25 08:51 1 APPL Lidocaine HCl (Lidocaine HCl Mpf 1% 2ml Vial) 0.5 ml AD IJ 03/19/25 11:00 03/19/25 11:01 DC Lidocaine/ Prilocaine (Emla) 1 appl ONCE TP 03/19/25 11:00 03/19/25 11:01 DC Metoprolol Succinate (TopROL XL) 100 mg DAILY PO 03/20/25 09:00 03/23/25 08:15 DC 03/20/25 09:04 100 MG Metronidazole/ Sodium Chloride 100 ml @ 100 mls/hr Q8H6 IVPB 03/19/25 06:00 03/29/25 05:59 03/24/25 06:04 100 MLS/HR Midodrine (PROAMatine 5 MG TABLET) 10 mg TID PO 03/20/25 22:30 04/19/25 22:29 03/24/25 14:20 10 MG Ondansetron HCl (zoFRAN 4MG INJ) 4 mg Q6H PRN IV NAUSEA/VOMITING 03/19/25 05:00 04/18/25 04:59 03/20/25 23:59 4 MG Piperacillin Sod/ Tazobactam Sod (Zosyn 3.375gm+NS 50ml) 3.375 gm ONCE STAT IV 03/19/25 00:50 03/19/25 00:56 DC 03/19/25 01:48 3.375 GM Sevelamer HCl (RENAgel 800 MG TAB) 800 mg TIDMEALS PO 03/23/25 12:00 04/22/25 11:59 03/24/25 12:04 800 MG Sodium Bicarbonate (Sodium Bicarbonate) 650 mg TID PO 03/19/25 14:00 03/20/25 13:48 DC 03/20/25 09:03 650 MG Sodium Chloride 250 ml @ 0 mls/hr AD IV 03/19/25 11:00 04/18/25 10:59 Sodium Chloride 1,000 ml @ 0 mls/hr ONCE IV 03/19/25 11:00 03/24/25 13:59 DC 03/24/25 13:58 1,000 MLS/HR Sodium Chloride 1,000 ml @ 0 mls/hr ONCE IV 03/19/25 16:30 03/19/25 20:30 DC 03/19/25 20:29 333 MLS/HR Sodium Chloride 1,000 ml @ 0 mls/hr ONCE IV 03/24/25 14:00 04/23/25 13:59 Vancomycin HCl (Vancomycin 500mg+NS 100ml Ivpb) 500 mg QMOWEFR[DIALYSIS] IV 03/24/25 16:00 04/03/25 15:59 Vancomycin HCl (Vancomycin 750mg) 750 mg QMOWEFR[DIALYSIS] IVPB 03/22/25 16:00 03/24/25 05:46 DC 03/22/25 18:20 750 MG Vancomycin HCl (Vancomycin Protocol) 1 each AD IV 03/20/25 15:00 04/03/25 14:59 Vitamin B Complex/ Vit C/Folic Acid (Nephrovite Tablet) 1 cap DAILY PO 03/21/25 09:00 04/20/25 08:59 03/24/25 08:48 1 CAP DIAGNOSTICS / RADIOLOGY: [ ] ASSESSMENT: Severe peripheral vascular disease POA Acute hypoxic respiratory failure not POA Metabolic encephalopathy not POA. Infected left AKA stump POA Multiple necrotic wound ulcers to right lower extremity POA Elevated troponin due to demand ischemia POA Acute on chronic systolic CHF POA End-stage renal disease on hemodialysis POA Diabetes POA Acute anemia due to CKD POA Hypertension POA Sepsis without septic shock source infected wounds to bilateral lower extremities POA resolved PLAN: Nephrology added sevelamer and epoetin tito Chest x-ray mild effusion, no thoracentesis needed Currently on nasal cannula5 L. CTA of the chest did not reveal any pulmonary embolism. We will continue IV antibiotics for possible infiltrates. Patient has low transferrin saturation we will give IV Venofer with dialysis monitor hemoglobin Id consult noted and followed accordingly. Critical care consultation noted followed accordingly Continue with IV cefepime Flagyl and vancomycin. Adjust according to cultures. CT scan of the leg did not show any drainable abscess. We will leave the decision to do MRI on ID. Appreciate cardiology consult. Continue on goal-directed medical therapy for systolic CHF. Patient not a candidate of Richar or Arb as blood pressure is on the lower side. We will leave that decision to Cardiology. Patient already on metoprolol succinate. We will need LifeVest on discharge if agreeable and if Cardiology agrees. GI DVT prophylaxis per protocol ATTESTATION BY PHYSICIAN I have seen and examined the patient. I reviewed the documentation, medical decision making, and treatment plan as noted by the mid-level provider above. I agree with the findings and plan of care. Ruy Marmolejo MD, AISHWARYA MD Mar 24, 2025 14:39
[2025-03-24] MEDS: acetaMINOPHEN 325 MG TAB PO PRN (15:08)
[2025-03-24] MEDS: HEParin 5,000 UNIT VIAL IRRIG SCH (16:18)
[2025-03-24] MEDS: VANCOMYCIN 500MG+NS 100ML IVPB IV SCH (17:18)
[2025-03-24] MEDS: EPOETIN ALFA-EPBX (NON-ESRD) 10,000 UNIT/ML VIAL SQ SCH (17:18)
--- NOTE | 2025-03-24 21:37 | PN ---
INFECTIOUS DISEASE PROGRESS NOTE Date of Service: Mar 24, 2025 SUBJECTIVE: This is a 59-year-old female patient who was seen and examined at bedside in room 330. Patient is awake, alert able to answer questions appropriately. Patient is being referred to [facility]. No reports of nausea or vomiting. Patient will continue on vancomycin, cefepime and metronidazole. Patient was being dialyzed at the time of visit. No other issues reported by by nursing. PHYSICAL EXAM EYES: Anicteric. Pupils equal and reactive. HENT: No oral thrush seen, moist Oral mucosa. NECK: Supple, no JVD or thyromegaly. LUNGS: Good air entry. No rales, no rhonchi. Oxygen support via nasal cannula. CARDIOVASCULAR: S1, S2 regular. No murmur heard. ABDOMEN: Soft, non tender, bowel sounds present, no organomegaly. CENTRAL NERVOUS SYSTEM: Awake, alert, oriented x 3. SKIN: No rashes, no swelling. LYMPHATICS: No peripheral lymphadenopathy. MUSCULOSKELETAL: No joint swelling, erythema or tenderness. EXTREMITIES: No cyanosis or clubbing. Left AKA stump necrosis. 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 BACK: No deformity, no pressure ulcer. GENITOURINARY: No dysuria or hematuria. Vital Sign (Last 12 Hours) 03/24/25 03/24/25 03/24/25 03/24/25 12:00 12:45 13:00 13:15 Temp 98.8 97.7 97.7 Pulse 62 62 63 60 Resp 20 16 16 16 B/P (MAP) 124/51 129/60 135/61 148/65 Pulse Ox 100 O2 Delivery Nasal Cannula Nasal Cannula Nasal Cannula Nasal Cannula O2 Flow Rate 5.0 3.0 3.0 3.0 03/24/25 03/24/25 03/24/25 03/24/25 13:30 13:45 14:00 14:15 Pulse 60 71 62 62 Resp 16 16 16 16 B/P (MAP) 139/60 127/55 122/57 110/47 O2 Delivery Nasal Cannula Nasal Cannula Nasal Cannula Nasal Cannula O2 Flow Rate 3.0 3.0 3.0 3.0 03/24/25 03/24/25 03/24/25 03/24/25 14:30 14:45 15:00 15:15 Pulse 60 67 68 65 Resp 16 16 16 16 B/P (MAP) 123/57 116/59 109/58 122/61 O2 Delivery Nasal Cannula Nasal Cannula Nasal Cannula Nasal Cannula O2 Flow Rate 3.0 3.0 3.0 3.0 03/24/25 03/24/25 03/24/25 03/24/25 15:30 15:35 15:50 16:00 Temp 97.5 Pulse 65 66 62 64 Resp 16 16 16 20 B/P (MAP) 96/51 105/55 110/54 96/52 Pulse Ox 98 O2 Delivery Room Air Room Air Room Air Nasal Cannula O2 Flow Rate 5.0 03/24/25 03/24/25 03/24/25 03/24/25 16:00 16:15 19:24 19:40 Temp 97.3 97.7 97.7 Pulse 60 67 61 Resp 16 20 20 B/P (MAP) 133/62 140/57 Pulse Ox 100 O2 Delivery Nasal Cannula N/Cannula Oximizer Hi LPM Nasal Cannula O2 Flow Rate 3.0 3.0 3.0 FiO2 32 03/24/25 21:09 B/P (MAP) 114/57 Intake & Output (last 24hrs) 03/23/25 03/23/25 03/24/25 15:00 23:00 07:00 Intake Total 100.0 ml Balance 100.0 ml LABS: Laboratory: Test 03/24/25 20:23 03/24/25 03:54 03/23/25 16:15 03/23/25 07:42 Range/Units Whole Blood Glucose 214 H 70-110 MG/DL White Blood Count 12.9 H 4.8-10.8 K/uL Red Blood Count 2.86 L 4.00-5.50 MIL/uL Hemoglobin 8.5 L 12.0-16.0 g/dL Hematocrit 27.8 L 36-48 % Mean Corpuscular Volume 97.2 79-99 fL Mean Corpuscular Hemoglobin 29.7 27.0-33.0 pg Mean Corpuscular Hemoglobin Concent 30.6 L 32.0-36.0 g/dL Red Cell Distribution Width 17.8 H 11.0-15.5 % Platelet Count 308 130-400 K/uL Mean Platelet Volume 10.9 H 7.5-10.5 fL Immature Granulocyte % (Auto) 0.6 0-1 % Neutrophils (%) (Auto) 66.8 40.0-77.0 % Lymphocytes (%) (Auto) 20.6 L 21.0-51.0 % Monocytes (%) (Auto) 8.2 3.0-13.0 % Eosinophils (%) (Auto) 2.7 0.0-8.0 % Basophils (%) (Auto) 1.1 0.0-5.0 % Neutrophils # (Auto) 8.6 H 1.8-7.7 K/uL Lymphocytes # (Auto) 2.7 1.0-4.8 K/uL Monocytes # (Auto) 1.1 H 0.1-1.0 K/uL Eosinophils # (Auto) 0.35 0.00-0.70 K/uL Basophils # (Auto) 0.14 0.00-0.20 K/uL Absolute Immature Granulocyte (auto 0.08 0-1 K/uL Nucleated Red Blood Cells 0.0 0.0-0.19 % Sodium Level 135 L 136-145 mmol/L Potassium Level 3.6 3.5-5.1 mmol/L Chloride Level 100 L 101-111 mmol/L Carbon Dioxide Level 29 21-32 mmol/L Blood Urea Nitrogen 32 H 7-18 mg/dL Creatinine 4.2 H 0.5-1.0 mg/dL Glomerular Filtration Rate Calc 12 >90 mL/min Random Glucose 139 H 70-105 mg/dL Total Calcium 7.1 L 8.5-10.1 mg/dL Total Bilirubin 0.4 0.2-1.0 mg/dL Aspartate Amino Transf (AST/SGOT) 14 10-37 U/L Alanine Aminotransferase (ALT/SGPT) 6 L 12-78 U/L Alkaline Phosphatase 105 50-136 U/L C-Reactive Protein, Quantitative 67.70 H 0.5-3.0 mg/L Total Protein 5.6 L 6.0-8.3 g/dL Albumin 1.5 L 3.5-5.0 g/dL Procalcitonin 0.51 H 0.05-0.5 ng/mL Vancomycin Level 26.0 20.0-30.0 mcg/mL Prothrombin Time 14.8 H 9.6-11.6 SEC Prothromb Time International Ratio 1.45 H 0.85-1.15 Fibrinogen 469 H 180-350 mg/dL Cortisol AM Sample 17.5 6.2-19.4 ug/dL Test 03/23/25 04:47 Range/Units Vitamin D 25-Hydroxy 12.4 30.0-100.0 ng/mL Thyroid Stimulating Hormone (TSH) 5.02 H 0.36-3.74 uIU/mL ASSESSMENT: Left AKA stump necrosis. Right leg calciphylaxis. Leukocytosis. Anemia. Severe PAD. End-stage renal disease, on dialysis. Diabetes mellitus. Chronic tobacco abuse. PLAN: Continue vancomycin as currently ordered. Continue cefepime. Continue metronidazole. Patient will need a surgical consult. Continue GI prophylaxis. Continue dialysis as recommended by charge preparation technician. Continue wound care. Continue antidiabetics. Patient to continue IV antibiotics for 7-10 more days then discontinue. This case was reviewed and discussed with my supervising physician and the above assessment and plan was formulated and agreed upon. ATTESTATION BY PHYSICIAN I have seen and examined the patient. I reviewed the documentation, medical decision making, and treatment plan as noted by the mid-level provider above. I agree with the findings and plan of care. DARRIN MUNOZ MD, [facility] Mar 24, 2025 21:37
[2025-03-25] VITALS (8 sets, daily range): BP systolic 120–146; BP diastolic 60–69; PULSE 64–103; RESP 16–20; TEMP 97.5–98.5; O2SAT 95–98
[2025-03-25] MEDS: HEParin 5,000 UNIT VIAL SQ SCH (00:01)
[2025-03-25 03:44] LABS: HEMATOCRIT 27.9 % (36-48); MEAN CORPUSCULAR HEMOGLOBIN 29.9 pg (27.0-33.0); MEAN CORPUSCULAR HGB CONC 30.8 g/dL (32.0-36.0); MEAN CORPUSCULAR VOLUME 96.9 fL (79-99); RED BLOOD CELL COUNT(AUTO) 2.88 MIL/uL (4.00-5.50); RED CELL DISTRIBUTION WIDTH 17.6 % (11.0-15.5); WHITE BLOOD COUNT (AUTO) 11.8 K/uL (4.8-10.8)
[2025-03-25 03:59] LABS: ALBUMIN 1.5 g/dL (3.5-5.0); BILIRUBIN,TOTAL 0.4 mg/dL (0.2-1.0); CREATININE 3.3 mg/dL (0.5-1.0); POTASSIUM 3.6 mmol/L (3.5-5.1); TOTAL PROTEIN, SERUM 5.7 g/dL (6.0-8.3)
--- NOTE | 2025-03-25 08:04 | NUR ---
during shift did wound care to right medial leg and right lower leg necrosis, picture of wound taken. Attempted to do wound care to left leg amputation and coccyx ulcer but patient refused wound care and for pictures to be taken.
--- NOTE | 2025-03-25 09:14 | PN ---
FOLLOWUP PROGRESS NOTE SUBJECTIVE: A 59-year-old female with a history of diabetes mellitus and hypertension. She has a history of end-stage renal disease, on dialysis 3 times per week. The patient presented with a nonhealing wound to the foot. The patient with a recent [id number] amputation. The patient was seen by Cardiology for vascular disease and continues with medical management. The patient is being seen as a followup visit for all of the above. REVIEW OF SYSTEMS: GENERAL: She complains of pain. HEENT: No change in vision. No change in hearing. CARDIOVASCULAR: There is no current chest pains or palpitations. PULMONARY: There is no shortness of breath. GASTROINTESTINAL: She is tolerating diet. MUSCULOSKELETAL: As described above. PHYSICAL EXAMINATION: VITAL SIGNS: Blood pressure is 141/60, pulse 60s. She is afebrile. GENERAL: She is a chronically old female, much older than appearing. HEENT: Head is atraumatic. Pupils are equal, roving to light. Oropharynx is without exudate. Nares clear. NECK: There is no JVP. There is no thyromegaly, no mass. CARDIOVASCULAR: Regular. There is no S3 or S4 gallop. LUNGS: Coarse with equal thoracic movement. ABDOMEN: Soft, nondistended, and nontender. EXTREMITIES: Reveal no clubbing, no cyanosis. NEUROLOGICAL: She is awake. She is alert. LABORATORY DATA: Sodium 132, potassium 3.6, BUN 24, creatinine 3.3. Hemoglobin 8.6, hematocrit 27. IMPRESSION: * Nonhealing wounds. * Vascular disease. * Diabetes mellitus. * Hypertension. * ESRD. PLAN: The patient continues with the antibiotics, as well as the local wound care. The patient does continue with dialysis 3 times per week. The patient was seen by Cardiology and felt no need for intervention at this time. The patient is being seen by case management for final disposition. Once the patient is discharged, the patient will follow up in the [facility]. TID: [id number] RECEIPT: [id number]
--- NOTE | 2025-03-25 11:27 | PN ---
INFECTIOUS DISEASE PROGRESS NOTE Date of Service: Mar 25, 2025 SUBJECTIVE: This is a 59-year-old female patient who was seen and examined at bedside in room 330. Patient is awake, alert and oriented. Patient is afebrile this morning, temperature is 98.4 and the WBC is 11.8. Patient was dialyzed yesterday and 2.2 L were removed. Patient is saturating 94-99% on room air. Dr. Munoz discussed hospice services to patient. We will consult case management social worker to discuss hospice services. Per nursing report patient is refusing dressing changes at time. Will continue on vancomycin, cefepime and metronidazole and can be discontinued after total of 7 to 10 days. No other issues reported by nursing. PHYSICAL EXAM EYES: Anicteric. Pupils equal and reactive. HENT: No oral thrush seen, moist Oral mucosa. NECK: Supple, no JVD or thyromegaly. LUNGS: Good air entry. No rales, no rhonchi. Oxygen support via nasal cannula. CARDIOVASCULAR: S1, S2 regular. No murmur heard. ABDOMEN: Soft, non tender, bowel sounds present, no organomegaly. CENTRAL NERVOUS SYSTEM: Awake, alert, oriented x 3. SKIN: No rashes, no swelling. LYMPHATICS: No peripheral lymphadenopathy. MUSCULOSKELETAL: No joint swelling, erythema or tenderness. EXTREMITIES: No cyanosis or clubbing. Left AKA stump necrosis. 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 BACK: No deformity, no pressure ulcer. GENITOURINARY: No dysuria or hematuria. Vital Sign (Last 12 Hours) 03/24/25 03/25/25 03/25/25 03/25/25 23:40 03:40 06:32 07:56 Temp 99.0 97.5 98.4 Pulse 67 66 64 67 Resp 20 20 18 16 B/P (MAP) 125/58 146/61 141/60 Pulse Ox 98 94 99 O2 Delivery Nasal Cannula Nasal Cannula N/A Room Air Room Air O2 Flow Rate 3.0 3.0 FiO2 21 Intake & Output (last 24hrs) 03/24/25 03/24/25 03/25/25 14:59 22:59 06:59 Intake Total 350 ml 800.0 ml 200.0 ml Output Total 2200 ml Balance 350 ml -1400.0 ml 200.0 ml LABS: Laboratory: Test 03/25/25 06:08 03/25/25 03:21 03/24/25 03:54 03/23/25 16:15 Range/Units Whole Blood Glucose 182 H 70-110 MG/DL White Blood Count 11.8 H 4.8-10.8 K/uL Red Blood Count 2.88 L 4.00-5.50 MIL/uL Hemoglobin 8.6 L 12.0-16.0 g/dL Hematocrit 27.9 L 36-48 % Mean Corpuscular Volume 96.9 79-99 fL Mean Corpuscular Hemoglobin 29.9 27.0-33.0 pg Mean Corpuscular Hemoglobin Concent 30.8 L 32.0-36.0 g/dL Red Cell Distribution Width 17.6 H 11.0-15.5 % Platelet Count 239 130-400 K/uL Mean Platelet Volume 10.7 H 7.5-10.5 fL Nucleated Red Blood Cells 0.0 0.0-0.19 % Sodium Level 132 L 136-145 mmol/L Potassium Level 3.6 3.5-5.1 mmol/L Chloride Level 98 L 101-111 mmol/L Carbon Dioxide Level 31 21-32 mmol/L Blood Urea Nitrogen 24 H 7-18 mg/dL Creatinine 3.3 H 0.5-1.0 mg/dL Glomerular Filtration Rate Calc 16 >90 mL/min Random Glucose 177 H 70-105 mg/dL Total Calcium 7.1 L 8.5-10.1 mg/dL Total Bilirubin 0.4 0.2-1.0 mg/dL Aspartate Amino Transf (AST/SGOT) 17 10-37 U/L Alanine Aminotransferase (ALT/SGPT) 6 L 12-78 U/L Alkaline Phosphatase 107 50-136 U/L Total Protein 5.7 L 6.0-8.3 g/dL Albumin 1.5 L 3.5-5.0 g/dL Immature Granulocyte % (Auto) 0.6 0-1 % Neutrophils (%) (Auto) 66.8 40.0-77.0 % Lymphocytes (%) (Auto) 20.6 L 21.0-51.0 % Monocytes (%) (Auto) 8.2 3.0-13.0 % Eosinophils (%) (Auto) 2.7 0.0-8.0 % Basophils (%) (Auto) 1.1 0.0-5.0 % Neutrophils # (Auto) 8.6 H 1.8-7.7 K/uL Lymphocytes # (Auto) 2.7 1.0-4.8 K/uL Monocytes # (Auto) 1.1 H 0.1-1.0 K/uL Eosinophils # (Auto) 0.35 0.00-0.70 K/uL Basophils # (Auto) 0.14 0.00-0.20 K/uL Absolute Immature Granulocyte (auto 0.08 0-1 K/uL C-Reactive Protein, Quantitative 67.70 H 0.5-3.0 mg/L Procalcitonin 0.51 H 0.05-0.5 ng/mL Vancomycin Level 26.0 20.0-30.0 mcg/mL Prothrombin Time 14.8 H 9.6-11.6 SEC Prothromb Time International Ratio 1.45 H 0.85-1.15 Fibrinogen 469 H 180-350 mg/dL ASSESSMENT: Left AKA stump necrosis. Right leg calciphylaxis. Leukocytosis. Anemia. Severe PAD. End-stage renal disease, on dialysis. Diabetes mellitus. Chronic tobacco abuse. PLAN: Continue vancomycin as currently ordered. Continue cefepime. Continue metronidazole. Continue GI prophylaxis. Continue dialysis as recommended by receiver. Continue wound care. Continue antidiabetics. Patient to receive a total of 7-10 days of IV antibiotics then discontinue. bridge maintenance worker consult for hospice referral. This case was reviewed and discussed with my supervising physician and the above assessment and plan was formulated and agreed upon. ATTESTATION BY PHYSICIAN I have seen and examined the patient. I reviewed the documentation, medical decision making, and treatment plan as noted by the mid-level provider above. I agree with the findings and plan of care. DARRIN MUNOZ MD, MIRTA L [employer]M CONSULTANT Mar 25, 2025 11:27
--- NOTE | 2025-03-25 13:17 | NUR ---
HOSPICE EDUCATION Sws met with pt and educated on hospice services. Explained to pt that she would be stopping dialysis and all aggressive treatment. Also explained that because she has MediCal, there may be difficulty finding a hospice that would take insurance and she would be a darby pt for hospice. Pt voiced understanding, but was no ready to make decision. Pt stated that she wanted to leave hospital today. Informed pt that if MDs are no ready to discharge her, she could leave AMA. Pt asked to speak to her nurse. Sws updated nurse Conde on above.
--- NOTE | 2025-03-25 13:44 | PN ---
[facility] PROGRESS NOTE Date of Service: Mar 25, 2025 Time of Service: 13:37 SUBJECTIVE: [ 59-year-old female not a good historian, with past medical history of CHF, hypertension , severe peripheral vascular disease, diabetes and end-stage renal disease on hemodialysis Saturday who was brought by EMS to the ED for complaints of pain to buttocks and bilateral lower extremities and fever.Patient reports she was recently admitted at [facility] for fluid overload and was discharged 2 days ago .Patient states she has a left AKA that was done 2 weeks ago and looks infected and she also has a multiple wound ulcers with some necrosis to right lower extremity and both extremities are swollen,with erythema and warm to to touch .Patient has no records here for any admissions. Upon arrival to the ED vital signs temperature 101.5, heart rate 92 blood pressure 130/71 saturation 98% on room air Seen and examined patient int he ED awake,alert and coherent and irritable.Patient denies chest pain,palpitation,cough and shortness of breath. Latest vital signs temperature 99.1, heart rate 95, blood pressure 114/60 saturation 98% on room air. Labs: WBC 11 , hemoglobin 9, hematocrit 29 platelet count 199. Chloride 99, BUN 32, creatinine 4.5 GFR 11, calcium 7.4 troponin 400 BNP 5000 chest x-ray, arterial ultrasound and venous Doppler result are still pending at this time. ECG unavailable at this time. While in the ER patient received Zosyn IV and fentanyl 50 mcg IV. We will admit patient for further medical management. 03/20/2025. Patient seen and examined denies any new complaints. 2D echo report discussed with the patient patient has low EF she is aware of that. Patient was seen by Cardiology Dr. Hodge no interventions planned. CT scan of the left below-knee amputation stump was done did reveal soft tissue edema no abscess noted. Pending ID consult. 03/21/2025. Patient was seen and examined. I received a call from nursing that patient was only responding to sternal rub and not waking up, immediately ABG was ordered which showed hypoxia no hypercapnia, injection of Narcan was given with some improvement in her mental status, CT head stat was ordered. Chest x- ray was ordered. Patient was transferred to PCU. Critical care consult was placed. Patient mental status improved she is alert oriented time three at this point. 03/22/2025. Patient was seen and examined along with RN. No new complaints. Patient is alert oriented x3. we are holding any narcotics. Critical Care on board. Continue on IV antibiotics awaiting formal consult from ID. 03/23-patient was seen and examined at the bedside. No new complaints noted. Patient is held on narcotics as she was hypoxic. Now doing stable alert and oriented. ID recommends to continue the same medications of vancomycin, cefepime and Flagyl for 10 days. Critical Care on board. Dr. Reno nephrology as added sevelamer for her increased phosphorus of 5.2 and epoetin alpha, Once she is discharged she is highly encouraged to follow up at the dialysis unit. 03/24/2025-patient was seen and examined at the bedside. She is doing better no new complaints noted. On3 L of oxygen, protocol and CRP are trending down. patient will continue with maximum ultrafiltration as blood pressure allows. The patient is being seen by case management for final disposition. Continues on IV antibiotics. She is scheduled for dialysis today. The plan was to do a chest x-ray to see if there is any pleural effusion for thoracocentesis by critical care. Chest x-ray reviewed, no interventional pulmonary procedure planned for now Minimal effusion does not warrant thoracentesis.May resume heparin. 03/25/2025-patient was seen and examined at the bedside. She is doing clinically well WBCs came down from 12.9-11.3. She continues on dialysis [address] Larios has spoke to the patient about hospice services. Case management and social media designer on board. school services officer- Pt voiced understanding, but was no ready to make decision. Pt stated that she wanted to leave hospital today. She has downgraded to [facility].wound care and dressings has been taken care of. REVIEW OF SYSTEMS CONSTITUTIONAL: Denies fevers, chills, or night sweats. No unintentional weight loss reported. NEUROLOGICAL: Denies headache, amaurosis fugax, motor weakness, sensory deficit, vertigo/spinning sensation, gait abnormalities, or tremors. ENT: No hearing loss, otalgia, otorrhea, rhinitis, rhinorrhea, hoarseness, or sore throat. CARDIOVASCULAR: Denies any exertional angina, dyspnea on exertion, orthopnea, paroxysmal nocturnal dyspnea, palpitations, life-threatening arrhythmias, claudication. PULMONARY: Denies any shortness of breath, cough, phlegm/sputum, hemoptysis, pleuritic chest pain. SLEEP: Denies morning headaches, daytime somnolence or napping. Denies difficulty falling asleep, staying asleep, waking from sleep. Denies knowledge of snoring. GASTROINTESTINAL: Denies any type of dysphagia to either liquids or solids. Denies nausea, vomiting, pyrosis, early satiety, abdominal pain, diarrhea, constipation, or changes in stool consistency or caliber. Denies coffee-ground emesis, hematemesis, hematochezia, or melanotic stools. GENITOURINARY: Denies frequency, urgency, nocturia, hematuria or incontinence (Storage/Irritative symptoms.) Low urinary stream, straining to void, urinary intermittency or hesitancy, splitting of the voiding stream, terminal dribbling. ENDOCRINOLOGIC: Denies polyuria, polydipsia, polyphagia or heat/cold intolerances. HEMATOLOGIC: Denies thrombophilia/previous clots, or coagulopathy/bleeding disorders. ONCOLOGIC: Denies personal history of malignancy. DERMATOLOGIC: Denies rashes or pruritus. PSYCHIATRIC: Denies any suicidal or homicidal ideation. Denies hallucinations. PHYSICAL EXAM GENERAL APPEARANCE: The patient is awake, alert, and oriented, in no acute cardiopulmonary distress. NEUROLOGICAL: Cranial nerves II-XII grossly intact. Motor is 5/5 in bilateral upper and lower extremities proximal to distal. No sensory deficits. HEENT: Face is symmetric. Pupils are equal and reactive. Extraocular movements are intact. NECK: Supple. No JVD. No thyromegaly. No submental, submandibular, pre-/ postauricular, occipital or supraclavicular lymphadenopathy. CHEST: Normal chest expansion. No Telemetry. LUNGS: Absence of any rales, rhonchi or any wheezing. CARDIOVASCULAR: Regular. S1 and S2 normal. No appreciable rubs, murmurs or gallops. ABDOMEN: Soft, nontender, and nondistended. There is no rebound, voluntary guarding, or rigidity. : Deferred. No Ta. EXTREMITIES: Left AKA with emily intact. Swollen right lower extremity SKIN: Infected left stump and right lower extremity multiple necrotic wound ulcers Vital Signs (last 8hr) Date Time Temp Pulse Resp B/P (MAP) Pulse Ox O2 Delivery O2 Flow Rate FiO2 03/25/25 11:43 98.4 72 16 126/60 100 Room Air 03/25/25 11:19 96 Room Air* 0 21 03/25/25 07:56 98.4 67 16 141/60 99 Room Air 03/25/25 06:32 64 18 N/A Room Air 21 LABS: Laboratory: Test 03/25/25 11:37 03/25/25 03:21 03/24/25 03:54 03/23/25 16:15 Range/Units Whole Blood Glucose 159 H 70-110 MG/DL White Blood Count 11.8 H 4.8-10.8 K/uL Red Blood Count 2.88 L 4.00-5.50 MIL/uL Hemoglobin 8.6 L 12.0-16.0 g/dL Hematocrit 27.9 L 36-48 % Mean Corpuscular Volume 96.9 79-99 fL Mean Corpuscular Hemoglobin 29.9 27.0-33.0 pg Mean Corpuscular Hemoglobin Concent 30.8 L 32.0-36.0 g/dL Red Cell Distribution Width 17.6 H 11.0-15.5 % Platelet Count 239 130-400 K/uL Mean Platelet Volume 10.7 H 7.5-10.5 fL Nucleated Red Blood Cells 0.0 0.0-0.19 % Sodium Level 132 L 136-145 mmol/L Potassium Level 3.6 3.5-5.1 mmol/L Chloride Level 98 L 101-111 mmol/L Carbon Dioxide Level 31 21-32 mmol/L Blood Urea Nitrogen 24 H 7-18 mg/dL Creatinine 3.3 H 0.5-1.0 mg/dL Glomerular Filtration Rate Calc 16 >90 mL/min Random Glucose 177 H 70-105 mg/dL Total Calcium 7.1 L 8.5-10.1 mg/dL Total Bilirubin 0.4 0.2-1.0 mg/dL Aspartate Amino Transf (AST/SGOT) 17 10-37 U/L Alanine Aminotransferase (ALT/SGPT) 6 L 12-78 U/L Alkaline Phosphatase 107 50-136 U/L Total Protein 5.7 L 6.0-8.3 g/dL Albumin 1.5 L 3.5-5.0 g/dL Immature Granulocyte % (Auto) 0.6 0-1 % Neutrophils (%) (Auto) 66.8 40.0-77.0 % Lymphocytes (%) (Auto) 20.6 L 21.0-51.0 % Monocytes (%) (Auto) 8.2 3.0-13.0 % Eosinophils (%) (Auto) 2.7 0.0-8.0 % Basophils (%) (Auto) 1.1 0.0-5.0 % Neutrophils # (Auto) 8.6 H 1.8-7.7 K/uL Lymphocytes # (Auto) 2.7 1.0-4.8 K/uL Monocytes # (Auto) 1.1 H 0.1-1.0 K/uL Eosinophils # (Auto) 0.35 0.00-0.70 K/uL Basophils # (Auto) 0.14 0.00-0.20 K/uL Absolute Immature Granulocyte (auto 0.08 0-1 K/uL C-Reactive Protein, Quantitative 67.70 H 0.5-3.0 mg/L Procalcitonin 0.51 H 0.05-0.5 ng/mL Vancomycin Level 26.0 20.0-30.0 mcg/mL Prothrombin Time 14.8 H 9.6-11.6 SEC Prothromb Time International Ratio 1.45 H 0.85-1.15 Fibrinogen 469 H 180-350 mg/dL Current Medications Medications (Trade) Dose Ordered Sig/Lori Route PRN Reason Start Time Stop Time Status Last Admin Dose Admin Acetaminophen (TYLenol 325MG TAB) 650 mg Q4H PRN PO MILD PAIN (1-3) 03/19/25 05:00 04/18/25 04:59 03/24/25 21:00 650 MG Acetaminophen (TYLenol 325MG TAB) 650 mg Q6H PRN PO TEMPERATURE GREATER THAN 101.5 03/19/25 05:00 04/18/25 04:59 Acetaminophen/ Hydrocodone Bitart (NORco 5/325MG) 1 tab Q4H PRN PO MODERATE PAIN (4-6) 03/19/25 05:00 03/24/25 04:59 DC 03/20/25 09:10 1 TAB Acetaminophen/ Hydrocodone Bitart (NORco 5/325MG) 2 tab Q4H PRN PO SEVERE PAIN (7-10) 03/19/25 05:00 03/24/25 04:59 DC 03/20/25 15:44 2 TAB Aspirin (Aspirin 81mg Ec Tab) 81 mg DAILY PO 03/20/25 09:00 04/19/25 08:59 03/25/25 10:06 81 MG Calcitriol (Rocaltrol 0.25mcg Cap) 0.25 mcg DAILY PO 03/20/25 09:00 04/19/25 08:59 03/25/25 09:59 0.25 MCG Cefepime HCl (MAXipime 1 GM vial) 1 gm Q24H IVPB 03/19/25 05:00 03/29/25 04:59 03/25/25 05:20 1 GM Dextrose (D50w) 50 ml AD PRN IV HYPOGLYCEMIA PROTOCOL 03/19/25 05:00 04/18/25 04:59 Epoetin Tito-epbx (Retacrit) 10,000 unit QMOWEFR[DIALYSIS] SQ 03/24/25 16:00 04/23/25 15:59 03/24/25 17:18 10,000 UNIT Famotidine (Pepcid 20mg Tab) 10 mg Q48H PO 03/19/25 05:00 04/18/25 04:59 03/25/25 05:20 10 MG Furosemide (LASix 40MG TAB) 40 mg DAILY PO 03/20/25 09:00 03/21/25 19:37 DC 03/21/25 11:47 40 MG Glucagon (Glucagon 1mg Kit) 1 mg AD PRN IM HYPOGLYCEMIA PROTOCOL 03/19/25 05:00 04/18/25 04:59 Heparin Sodium (Porcine) (HEParin 5,000 UNIT VIAL) 5,000 unit AD IRRIG 03/19/25 11:00 03/20/25 14:36 DC Heparin Sodium (Porcine) (HEParin 5,000 UNIT VIAL) 5,000 unit Q12H SQ 03/19/25 05:30 03/19/25 17:09 DC 03/19/25 05:31 5,000 UNIT Heparin Sodium (Porcine) (HEParin 5,000 UNIT VIAL) 5,000 unit Q12H SQ 03/19/25 20:00 03/24/25 20:59 DC 03/24/25 12:18 5,000 UNIT Heparin Sodium (Porcine) (HEParin 5,000 UNIT VIAL) 5,000 unit Q12H SQ 03/24/25 23:59 04/23/25 23:58 03/25/25 12:47 5,000 UNIT Heparin Sodium (Porcine) (HEParin 5,000 UNIT VIAL) 10,000 unit AD IRRIG 03/20/25 15:00 04/18/25 16:29 03/24/25 16:18 10,000 UNIT Heparin Sodium (Porcine) (HEParin 5,000 UNIT VIAL) 10,000 unit AD SQ 03/19/25 16:30 03/20/25 14:37 DC Hydralazine HCl ([id number] TAB) 100 mg BID PO 03/19/25 21:00 03/21/25 19:37 DC 03/20/25 09:04 100 MG Insulin Human Regular (humuLIN R 100 UNIT/ML 3ML) INSULIN SLIDING SCAL... ACHS SQ 03/19/25 07:30 04/18/25 07:29 03/25/25 06:39 2 UNIT Isosorbide Mononitrate (Imdur 60mg Sr) 60 mg DAILY PO 03/20/25 09:00 04/19/25 08:59 03/25/25 10:00 60 MG Leptospermum Honey (Petconey) 1 appl DAILY TP 03/20/25 16:00 04/19/25 15:59 03/25/25 10:06 1 APPL Lidocaine HCl (Lidocaine HCl Mpf 1% 2ml Vial) 0.5 ml AD IJ 03/19/25 11:00 03/19/25 11:01 DC Lidocaine/ Prilocaine (Emla) 1 appl ONCE TP 03/19/25 11:00 03/19/25 11:01 DC Metoprolol Succinate (TopROL XL) 100 mg DAILY PO 03/20/25 09:00 03/23/25 08:15 DC 03/20/25 09:04 100 MG Metronidazole/ Sodium Chloride 100 ml @ 100 mls/hr Q8H6 IVPB 03/19/25 06:00 03/29/25 05:59 03/25/25 06:34 100 MLS/HR Midodrine (PROAMatine 5 MG TABLET) 10 mg TID PO 03/20/25 22:30 04/19/25 22:29 03/25/25 09:59 10 MG Ondansetron HCl (zoFRAN 4MG INJ) 4 mg Q6H PRN IV NAUSEA/VOMITING 03/19/25 05:00 04/18/25 04:59 03/20/25 23:59 4 MG Piperacillin Sod/ Tazobactam Sod (Zosyn 3.375gm+NS 50ml) 3.375 gm ONCE STAT IV 03/19/25 00:50 03/19/25 00:56 DC 03/19/25 01:48 3.375 GM Sevelamer HCl (RENAgel 800 MG TAB) 800 mg TIDMEALS PO 03/23/25 12:00 04/22/25 11:59 03/25/25 10:06 800 MG Sodium Bicarbonate (Sodium Bicarbonate) 650 mg TID PO 03/19/25 14:00 03/20/25 13:48 DC 03/20/25 09:03 650 MG Sodium Chloride 250 ml @ 0 mls/hr AD IV 03/19/25 11:00 04/18/25 10:59 Sodium Chloride 1,000 ml @ 0 mls/hr ONCE IV 03/19/25 11:00 03/24/25 13:59 DC 03/24/25 13:58 1,000 MLS/HR Sodium Chloride 1,000 ml @ 0 mls/hr ONCE IV 03/19/25 16:30 03/19/25 20:30 DC 03/19/25 20:29 333 MLS/HR Sodium Chloride 1,000 ml @ 0 mls/hr ONCE IV 03/24/25 14:00 04/23/25 13:59 Vancomycin HCl (Vancomycin 500mg+NS 100ml Ivpb) 500 mg QMOWEFR[DIALYSIS] IV 03/24/25 16:00 04/03/25 15:59 03/24/25 17:18 500 MG Vancomycin HCl (Vancomycin 750mg) 750 mg QMOWEFR[DIALYSIS] IVPB 03/22/25 16:00 03/24/25 05:46 DC 03/22/25 18:20 750 MG Vancomycin HCl (Vancomycin Protocol) 1 each AD IV 03/20/25 15:00 04/03/25 14:59 Vitamin B Complex/ Vit C/Folic Acid (Nephrovite Tablet) 1 cap DAILY PO 03/21/25 09:00 04/20/25 08:59 03/25/25 09:59 1 CAP DIAGNOSTICS / RADIOLOGY: [ ] ASSESSMENT: Severe peripheral vascular disease POA Acute hypoxic respiratory failure not POA Metabolic encephalopathy not POA. Infected left AKA stump POA Multiple necrotic wound ulcers to right lower extremity POA Elevated troponin due to demand ischemia POA Acute on chronic systolic CHF POA End-stage renal disease on hemodialysis POA Diabetes POA Acute anemia due to CKD POA Hypertension POA Sepsis without septic shock source infected wounds to bilateral lower extremities POA resolved PLAN: Nephrology added sevelamer and epoetin tito Continues on IV antibiotics for 7-10 days recommended by ID. Chest x-ray mild effusion, no thoracentesis needed Currently on room air. CTA of the chest did not reveal any pulmonary embolism. We will continue IV antibiotics for possible infiltrates. Patient has low transferrin saturation we will give IV Venofer with dialysis monitor hemoglobin Id consult noted and followed accordingly. Critical care consultation noted followed accordingly Continue with IV cefepime Flagyl and vancomycin. Adjust according to cultures. CT scan of the leg did not show any drainable abscess. We will leave the decision to do MRI on ID. Appreciate cardiology consult. Continue on goal-directed medical therapy for systolic CHF. Patient not a candidate of Richar or Arb as blood pressure is on the lower side. We will leave that decision to Cardiology. Patient already on metoprolol succinate. We will need LifeVest on discharge if agreeable and if Cardiology agrees. GI DVT prophylaxis per protocol ATTESTATION BY PHYSICIAN I have seen and examined the patient. I reviewed the documentation, medical decision making, and treatment plan as noted by the mid-level provider above. I agree with the findings and plan of care. Ruy Marmolejo MD, AISHWARYA MD Mar 25, 2025 13:44
--- NOTE | 2025-03-25 15:31 | NUR ---
APS/AMA JOEY was made aware that pt was going to want to leave AMA by nurse Amaya. JOEY attempted to contact APS sales department manager Lenore Buenrostro [phone] however she is out of office until 03/29/25. [facility] had two additional contact numbers [phone] and [phone] for assistance with cases however there was no answer on both numbers. JOEY left voicemail. JOYE called Desmond at local APS office for more info and she stated that she would send an email to sort supervisor with my contact information and I will be getting a call back.
--- NOTE | 2025-03-25 15:34 | NUR ---
MRS GOMEZ NOTIFIED ME SHE WANTED TO LEAVE AMA. PATIENT STATED SHE DID NOT WANT TO BE HERE ANYMORE AND SAID HER SON WAS GOING TO PICK HER UP. WE EDUCATED AND PATIENT UNDERSTANDS LEAVING AGAINST MEDICAL ADVICE AND STATED SHE STILL WANTED TO GO. DR. Jacinda GRANGER MADE AWARE.
--- NOTE | 2025-03-25 17:45 | NUR ---
DISCHARGE Went to go speak with pt regarding signing herself out against medical advice. Stepson at bedside. Educated pt and stepson on leaving AMA both verbalize understanding. Pt still wishes to move forward and leave.
--- NOTE | 2025-03-25 18:20 | NUR ---
PATIENTS SON EMILY ARRIVED AND IS AT BEDSIDE AND STATED HE CAN NOT CARRY PATIENT INTO THE WHEEL CHAIR. TUBE REPAIRER SONIA AND MYSELF EXPLAINED TO PATIENT SHE HAS MULTIPLE WOUNDS AND NEEDS CARE ALONG WITHER HEMODIALYSIS THAT HAS NOT BEEN SET UP. PATIENT STATES SHE DONT CARE AND WANTS TO GO HOME. SONIA, TUBE REPAIRER GAVE EMILY INFORMATION ON AMBULANCE SERVICES ([facility]) TO SET UP FOR DYE TANK TENDER AND HE STATED HE DOES NOT HAVE THE FINANCIAL MEANS TO PAY FOR IT OUT OF POCKET. HE STATED HE WILL STILL TAKE HER HOME, HE WILL JUST NEED TO GO DYE TANK TENDER HIS COUSIN TO HELP HIM CARRY HIS MOM SAFELY INTO THE CAR. PATIENT SIGNED AMA. PATIENT IS AAOX4, NO DISTRESS NOTED AT THIS TIME.
--- NOTE | 2025-03-25 19:41 | NUR ---
SPOKE TO MADISON MEDRANO NP ABOUT PATIENT STATING SHE WOULD BE LEAVING AMA. PER AM SHIFT NURSE PATIENT ALREADY SIGNED AMA FORM. IV CATHETER ALREADY REMOVED BY DAY SHIFT NURSE, WELL TELE PACK MONITOR. PER AM NURSE ROUNDING WAS NOTIFIED.
--- NOTE | 2025-03-25 21:15 | NUR ---
@2055PM Patient son and cousin arrived to vegetable picker patient. Patient stated she signed out AMA since earlier in day but was just waiting on her ride home. Confirmed that AMA form was signed. Notified warehouse engineer kali and david acosta farm helper. Patient was transferred to bed to wheelchair by family. Patient tolerated well. Patient did refuse night medications. Patient stated " I dont want to be here no more, I am leaving because I said so". Educated on risks of leaving AMA but patient still was Adamant to leave AMA. Patient son agreed for patient to leave home. Patient took personal belongings including purse.
--- NOTE | 2025-03-25 21:21 | NUR ---
Patient was walked to from of ER by this nurse. Family transferred patient from wheelchair to car without any incidents. Addendum: 03/25/25 at 2221 by NILSON AMEZQUITA RN RN Family wheeled patient on wheelchair to ER area.
--- NOTE | 2025-03-26 09:05 | NUR ---
APS FOLLOW UP SW attempted to follow up with APS GAUTAM Rider [phone] in reference to AMA however there was no answer. SW left voicemail.
--- NOTE | 2025-03-27 08:26 | PN ---
[facility] PROGRESS NOTE Date Patient Seen: Mar 25, 2025 Time of Visit: 08:21 Supervising Physician: BASSAM MARSH MD Primary Care Physician: self referred Outpatient Specialists: [ ] Inpatient Consults: [ ] PROBLEM LIST: Acute sepsis without septic shock present on admission Sepsis secondary to infected wounds to the lower extremities bilaterally Severe peripheral vascular disease Infected left AKA stump Multiple necrotic ulcers and wounds to the right lower extremity on admission Acute on chronic systolic heart failure exacerbation on admission Troponin leak secondary to metabolic demand End-stage renal disease on hemodialysis Type 2 diabetes mellitus with hyperglycemia Essential hypertension Acute hypoxemic respiratory failure secondary to gross volume overload with pulmonary edema INTERVAL HISTORY: 03/25/2025 Mrs. Conklin is seen and evaluated Clinical chart reviewed Events of the last 24 hours noted Remains on 3 liters O2 Afebrile, no distress Very weak, very frail. Appears older than her chronological age no nausea or vomiting, good appetite Pain is well controlled She does have orthopnea denies chest pain no palpitations As per nurse, PCP has discussed advance directives and hospice care with patient No further interventions recommended REVIEW OF SYSTEMS: 12 points review of systems done PHYSICAL EXAM: GENERAL: alert, weak, awake oriented x 3 HEENT: EOMI, Sclera non icteric, moist mucosa NECK: Supple, no JVD, trachea midline LUNGS: Clear breath sounds bilaterally. No wheezes HEART: Regular rate and rhythm. Normal S1 and S2, without murmurs ABD: Abdomen soft, nontender. Bowel sounds present EXT: Left AKA, dry necrosis of the right foot NEURO: Alert and oriented to person, follows commands LABS: Chemistry Labs: Test 03/25/25 11:37 Range/Units Whole Blood Glucose 159 H 70-110 MG/DL DIAGNOSTICS / RADIOLOGY RESULTS: [ Imaging scans reviewed ] PLAN No invasive pulmonary procedure planned Patient is going to be discharged with hospice services as per discussion with PCP hemodialysis as scheduled NEURO: Minimize central acting medications as possible. Maintain fall precautions, adequate lighting during the day PULMONARY: Supplemental 02 as needed. Maintain aspiration precautions at all times CARDIOVASCULAR: Follow hemodynamics. Vital signs per facility protocol GI & NUTRITION: Continue with nutritional support. Continue stool softeners and laxatives as needed. KIDNEYS & ELECTROLYTES: Strict monitoring of intake, output and overall fluid balance. Avoid nephrotoxic medications to the extent possible. Medications to be dosed according to renal function. Monitor electrolytes and replace as needed ENDOCRINE: Maintain blood glucose between 100-180 at all times. Hypoglycemia protocol in place INFECTIOUS DISEASE: Trend temperature, WBC and procalcitonin level Follow cultures, deescalate antibiotics as soon as possible. Panculture if new onset fever ONCOLOGY/HEMATOLOGY/COAGULATION: Monitor for s/s of bleeding Monitor hemoglobin, coagulation studies as needed SKIN: Pressure ulcer prevention per facility protocol Specialty mattress ORTHO/REHAB: Continue PT/OT Prophylaxis: Continue GI and DVT prophylaxis Code Status: Full Resuscitation Disposition: Home with hospice I personally scribed for BASSAM CALABRESE MD ([email or web address]) on 03/27/25 at 08:26. Electronically submitted by Robbin Harry ([email or web address]). BASSAM CALABRESE MD Mar 27, 2025 08:26
== END 2025-03-25 20:55 | disposition left against medical advice (07) | DRG 564 ==
LOC: EDH 22:04 → EDHIP 22:05 → 4DH 03-19 20:20 → 2AH 03-21 09:30
PROVIDERS: ADMIT Internal Medicine; ATTEND Internal Medicine
PROC: 5A1D70Z Performance of Urinary Filtration, Intermittent, Less than 6 Hours Per Day (ICD-10-PCS; principal; 2025-03-19)
PROC: 5A1D70Z Performance of Urinary Filtration, Intermittent, Less than 6 Hours Per Day (ICD-10-PCS; 2025-03-24)
DX: T87.44 Infection of amputation stump, left lower extremity (principal); A41.9 Sepsis, unspecified organism; J96.01 Acute respiratory failure with hypoxia; I50.23 Acute on chronic systolic (congestive) heart failure; G93.41 Metabolic encephalopathy; N18.6 End stage renal disease; I13.2 Hypertensive heart and chronic kidney disease with heart failure and with stage 5 chronic kidney disease, or end stage renal disease; L97.918 Non-pressure chronic ulcer of unspecified part of right lower leg with other specified severity; T87.54 Necrosis of amputation stump, left lower extremity; D63.1 Anemia in chronic kidney disease; Z99.2 Dependence on renal dialysis; E11.51 Type 2 diabetes mellitus with diabetic peripheral angiopathy without gangrene; E11.22 Type 2 diabetes mellitus with diabetic chronic kidney disease; E11.65 Type 2 diabetes mellitus with hyperglycemia; E78.5 Hyperlipidemia, unspecified; E83.59 Other disorders of calcium metabolism; F17.200 Nicotine dependence, unspecified, uncomplicated; G47.30 Sleep apnea, unspecified; K80.20 Calculus of gallbladder without cholecystitis without obstruction; Z53.29 Procedure and treatment not carried out because of patient's decision for other reasons; I48.91 Unspecified atrial fibrillation; Y83.5 Amputation of limb(s) as the cause of abnormal reaction of the patient, or of later complication, without mention of misadventure at the time of the procedure; Z86.73 Personal history of transient ischemic attack (TIA), and cerebral infarction without residual deficits; Z89.612 Acquired absence of left leg above knee; Z91.199 Patient's noncompliance with other medical treatment and regimen due to unspecified reason
CPT/HCPCS: 36415; 36600; 70450; 71045; 71270; 73700; 74018; 76376; 80048; 80053; 80061; 80202; 82040; 82140; 82306; 82533; 82550; 82565; 82607; 82728; 82746; 82803; 82948; 83036; 83540; 83550; 83605; 83735; 83880; 84100; 84145; 84443; 84484; 84520; 85014; 85018; 85025; 85027; 85384; 85610; 85651; 86140; 86701; 86704; 86706; 86803; 86850; 86900; 86901; 87040; 87340; 87390; 90935; 93005; 93306; 93356; 93925; 93970; 99285; G0378; J0692; J1644; J1815; J2310; J2405; J2543; J2765; J3010; J3370; J3490; P9046; Q9967; A6214; Q5106